=== PATIENT | female | born 1985 | race Caucasian/White ===

== ENCOUNTER 2019-10-20 07:02 | Emergency (ER) | payer OTHER, SELFPAY ==
[2019-10-20 07:06] VITALS: BP 148/102; PULSE 115; RESP 20; TEMP 36.8; O2SAT 100; BMI 23.3
--- NOTE | 2019-10-20 07:17 | W.ED.EYEPROB ---
HPI - Eye Problem General: Chief complaint: Eye Problems Stated complaint: left eye pain, patient states left eye irritation after removal of contact last night. Patient states it feels like there is something in her eye. Patient appears well. Patient has some redness to the low left eyelid. No obvious deformities noted. Patient appears in moderate pain. Time Seen by Provider: 10/20/19 07:16 Source: patient Mode of arrival: ambulatory Limitations: no limitations Review of Systems General: Reports: 10 or more systems reviewed and unremarkable except in HPI and below Eyes: Reports: eye discomfort (left eye pain) PFSH ED PFSH: Statuses (acute, chronic, etc) shown below reflect problem list status as previously entered and may not be historically accurate Social History Smoking and tobacco status: never smoked Physical Exam Const: COMMON NORMALS: no apparent distress and oriented x3 GENERAL APPEARANCE: cooperative HENMT: COMMON NORMALS: normocephalic, external ears normal, EAC's normal, TM's normal bilaterally and external nose normal HEAD & SCALP: normal to inspection and normocephalic FACE & SINUS: normal facial exam NOSE: external nose normal GENERAL EAR: hearing grossly impaired EXTERNAL EAR: Yes external ears normal EXTERNAL AUDITORY CANAL: EAC's normal TYMPANIC MEMBRANE: TM's normal bilaterally MOUTH: oral and palatal mucosa normal THROAT: posterior oropharynx normal Eye: COMMON NORMALS: PERRL and EOMs intact bilaterally VISUAL ACUITY: No visual acuity left eye ALIGNMENT: Yes alignment normal EYELID: eyelid abnormal (redness left eye lid) CONJUNCTIVA: Yes conjunctiva abnormal positive left conjunctival injection CORNEA: Yes fluorescein used (large abrasion left medial eye) PUPIL: Yes PERRL EYE IMAGES: 1. abrasion Neck/C-Spine: COMMON NORMALS: full ROM and no lymphadenopathy Lymph: LYMPHATIC: no lymphedema noted Chest: COMMONS NORMALS: inspection of chest normal and palpation of chest normal Resp: COMMON NORMALS: normal respiratory effort and clear to auscultation bilaterally AUSCULTATION: clear to auscultation bilaterally Cardio: COMMON NORMALS: regular rate and regular rhythm RATE: regular rate RHYTHM: regular rhythm GI: COMMON NORMALS: normal to inspection, nondistended, normoactive bowel sounds and non-tender : COMMON NORMALS: Yes no CVA tenderness BLADDER/KIDNEY EXAM: Yes no CVA tenderness Back/Pelvis: COMMON NORMALS: no CVA tenderness and thoracic and lumbar spine normal to inspection Extremity: COMMON NORMALS: normal to inspection GENERAL: No edema Neuro: COMMON NORMALS: oriented x3, moves all extremities and no focal motor deficits Psych: COMMON NORMALS: mental status grossly normal and cooperative Skin: COMMON NORMALS: no rashes or lesions noted GENERAL SKIN EXAM: no rashes or lesions noted Course Vital Signs: Vital signs: Vital Signs Temperature 98.3 F 10/20/19 07:06 Pulse Rate 115 H 10/20/19 07:06 Respiratory Rate 20 H 10/20/19 07:06 Blood Pressure 148/102 10/20/19 07:06 Pulse Oximetry 100 10/20/19 07:06 MDM - Eye Problem MDM Narrative: Medical decision making narrative: 32-year-old female comes in today for complaints of left eye irritation. Patient reports irritation after removal of contact last night. Patient had persistent discomfort since last night. Exam notes pupils equal reactive, no foreign body noted, under fluorescein stain note a abrasion to the medial left eye. Differential diagnosis includes contact related abrasion, conjunctivitis, foreign body. Reviewed exam with patient recommended treatment with prednisolone eyedrops and moxifloxacin. Patient reports understanding. Recommend referral to eye caregiver assisted living for monitoring and repeat examination. Patient reports understanding of care plan and need for follow-up. Discharge Plan Discharge Clinical Impression: Corneal abrasion Qualifiers: Encounter type: initial encounter Laterality: left Qualified Code(s): S05.02XA - Injury of conjunctiva and corneal abrasion without foreign body, left eye, initial encounter Condition: Stable Prescriptions: New moxifloxacin 0.5 % drops 1 drop ophthalmic (eye) TID 7 Days Qty: 3 RF: 0 ketorolac 0.5 % drops 1 drop ophthalmic (eye) Q6H PRN (Reason: Eye Irritation) 3 Days Qty: 5 RF: 0 prednisolone acetate 1 % drops,suspension 1 drop ophthalmic (eye) Q8H Qty: 5 RF: 0 Discharge Orders: Discharge Order (Routine); Ordered 10/20/19 Ordered By: Andrea Randall Referrals: Polo Nagy, ART PSYCHOTHERAPIST OR THERAPIST-C [Primary Care Provider] - Discharge Diet: Usual diet Discharge Activity: Resume usual activity Activity Restrictions/Additional Instructions: Avoid rubbing eyes Medications as directed Follow-up with eye caregiver assisted living today or at soonest availability Use eye drops as recommended Return to ER as needed Coding Level of Care Code ED Electronic Die Maker for Chg Fwd Exam Problem Focused
[2019-10-20 08:13] VITALS: BP 132/88; PULSE 67; RESP 15; O2SAT 97
== END 2019-10-20 08:14 | disposition home or self-care (01) ==
PROVIDERS: Emergency Provider Nurse Practitioner Family; Family Provider Nurse Practitioner; PCP Nurse Practitioner
DX: S05.02XA Injury of conjunctiva and corneal abrasion without foreign body, left eye, initial encounter (principal); X58.XXXA Exposure to other specified factors, initial encounter
CPT/HCPCS: 99281

== ENCOUNTER 2019-11-18 08:33 | Outpatient (CLI) | payer OTHER, SELFPAY ==
--- NOTE | 2019-11-18 08:45 | MR_ITS ---
WS: [id number] MRI LUMBAR SPINE NONCONTRAST HISTORY: Fracture/ disc displacement COMPARISON: 10/10/2019 TECHNIQUE: Sagittal and axial multisequence imaging is submitted. T12: Mild anterior compression deformity. Mixed increased and decreased signal intensity along the martinez perior endplate without retropulsion. No marrow edema into the posterior elements. No contact on the cord. Mild straightening of the normal lumbar lordosis. No lumbar spine fracture. Benign hemangioma in L3. Mild disc desiccation at L4-5. Conus terminates normally at L1-2 disc level. L1-L2: Normal. L2-L3: Normal. L3-L4: Mild facet and ligamentum flavum hypertrophy with no stenosis. L4-L5: Broad-based shallow central disc protrusion with annular fissure. Broad-based protrusion is ab utting the L5 nerve roots bilaterally, greatest on the RIGHT. Significant compression of the RIGHT L5 nerve root. Small amount of fluid in the facet joints. Mild central stenosis. L5-S1: Mild annular disc bulging without stenosis. Small amount of fluid in the facet joints. Paravertebral soft tissues are negative. MR/MR lumbar spine wo con* [id number] IMPRESSION: 1. Mild, subacute, approximately 10% compression fracture of T12 is stable. 2. Broad-based disc protrusion at L4-5 with encroachment upon the nerve roots, RIGHT greater than LEFT. Significant RIGHT L5 nerve root encroachment. 3. Mild central stenosis at L4-5.
== END 2019-11-18 08:34 | disposition home or self-care (01) ==
LOC: RADSHAW 08:38
PROVIDERS: Family Provider Nurse Practitioner; PCP Nurse Practitioner; Visit Provider Licensed Practical Nurse
DX: S22.080A Wedge compression fracture of T11-T12 vertebra, initial encounter for closed fracture (principal); X58.XXXA Exposure to other specified factors, initial encounter; M51.26 Other intervertebral disc displacement, lumbar region; M48.061 Spinal stenosis, lumbar region without neurogenic claudication
CPT/HCPCS: 72148

== ENCOUNTER → 2019-12-27 09:52 | Outpatient (BNVA) | payer OTHER, SELFPAY | PROVIDERS: Family Provider Nurse Practitioner; PCP Nurse Practitioner; Referring Provider Licensed Practical Nurse; Visit Provider Anesthesiology Pain Medicine | DX: M47.816 Spondylosis without myelopathy or radiculopathy, lumbar region (principal); M54.16 Radiculopathy, lumbar region; M51.26 Other intervertebral disc displacement, lumbar region; S22.080A Wedge compression fracture of T11-T12 vertebra, initial encounter for closed fracture; X58.XXXA Exposure to other specified factors, initial encounter; Z79.891 Long term (current) use of opiate analgesic | CPT/HCPCS: 99204 ==

== ENCOUNTER → 2020-03-13 08:51 | Outpatient (BNVA) | payer OTHER, SELFPAY | PROVIDERS: Family Provider Nurse Practitioner; PCP Nurse Practitioner; Visit Provider Anesthesiology Pain Medicine | DX: M47.816 Spondylosis without myelopathy or radiculopathy, lumbar region (principal); M51.26 Other intervertebral disc displacement, lumbar region; M54.16 Radiculopathy, lumbar region; M54.9 Dorsalgia, unspecified; S22.080A Wedge compression fracture of T11-T12 vertebra, initial encounter for closed fracture; X58.XXXA Exposure to other specified factors, initial encounter; Z79.891 Long term (current) use of opiate analgesic | CPT/HCPCS: 99213 ==

== ENCOUNTER 2020-04-11 08:25 | Outpatient (CLI) | payer OTHER, SELFPAY ==
--- NOTE | 2020-04-11 08:30 | CT_ITS ---
WS: [id number] CT LUMBAR SPINE, noncontrast. HISTORY: lumbar pain TECHNIQUE: Contiguous 2.5 mm axial imaging are performed. Sagittal and coronal reformats are submitte d and reviewed. All CT scans at [facility] use at least one of these dose optimization te chniques: automated exposure control; mA and/or kV adjustment per patient size (includes targeted exa ms where dose is matched to clinical indication); or iterative reconstruction. IV contrast: None DLP: 2749.15 mGycm COMPARISON: 10/10/2019 Mild straightening of the normal lumbar lordosis. No lumbar spine fracture. Very mild anterior wedgin g of T11 and L1. No acute fractures were identified on a prior MRI. Mild anterior wedging of T12. Hea ling subacute fracture that was previously described. No progression of the fracture. L1-2: Normal. L2-3: Normal. L3-4: Normal. L4-5: Mild disc bulging with a RIGHT paracentral disc protrusion, similar to the prior study with no progression. Mild effacement of the ventral thecal sac. Mild encroachment upon the RIGHT L5 nerve izzy t. L5-S1: Mild broad based disc bulging. No stenosis. There is air tracking through the soft tissues at the L4-5 level. There is also air in the subarachno id space of uncertain etiology. Epidural and joint injections were recently performed. CT/CT lumbar spine wo con* [id number] IMPRESSION: 1. Stable 10% T12 compression fracture. 2. No additional fractures. There is very slight anterior wedging of T11 and L 1 which were not acute on a prior MRI from 11/18/2019. 3. Broad-based disc protrusion at L4-5 resulting in mild central stenosis and encroachment upon the L5 nerve roots. Greatest on the RIGHT. Similar to the genoveva or MRI of 11/18/2019. 4. Epidural air and soft tissue air at the L4-5 level from recent epidural and facet injections.
== END 2020-04-11 08:26 | disposition home or self-care (01) ==
LOC: RADWPI 08:30
PROVIDERS: Family Provider Nurse Practitioner; PCP Nurse Practitioner; Visit Provider Specialist
DX: S22.080A Wedge compression fracture of T11-T12 vertebra, initial encounter for closed fracture (principal); X58.XXXA Exposure to other specified factors, initial encounter; M51.26 Other intervertebral disc displacement, lumbar region; M48.061 Spinal stenosis, lumbar region without neurogenic claudication
CPT/HCPCS: 72131

== ENCOUNTER 2020-04-29 11:30 | Emergency (ER) | payer OTHER, SELFPAY ==
[2020-04-29 11:39] VITALS: BMI 23.1
[2020-04-29 11:43] VITALS: BP 149/92; PULSE 88; RESP 16; TEMP 36.8; O2SAT 98
--- NOTE | 2020-04-29 12:01 | W.ED.GENADLT ---
HPI - General Adult General: Chief complaint: General Medical Stated complaint: HIGH BP Time Seen by Provider: 04/29/20 11:43 History of Present Illness: HPI narrative: Patient states that she has not felt well for approximately 1 month and has felt that it was her blood pressure being high. Patient states that she can tell when her blood pressure is high and what will make it go up. Patient is not on any antihypertensives. Onset (ago): month(s) (1) Location: head Radiation: non-radiation Relieving factors: none Exacerbating factors: none Review of Systems General: Reports: 10 or more systems reviewed and unremarkable except in HPI and below PFSH ED PFSH: Medical History Chronic left lumbar radiculopathy T12: Mild anterior compression deformity. Mixed increased and decreased signal intensity along the superior endplate without retropulsion. No marrow edema into the posterior elements. No contact on the cord. Mild straightening of the normal lumbar lordosis. No lumbar spine fracture. Benign hemangioma in L3. Mild disc desiccation at L4-5. Conus terminates normally at L1-2 disc level. L1-L2: Normal. L2-L3: Normal. L3-L4: Mild facet and ligamentum flavum hypertrophy with no stenosis. L4-L5: Broad-based shallow central disc protrusion with annular fissure. Broad-based protrusion is abutting the L5 nerve roots bilaterally, greatest on the RIGHT. Significant compression of the RIGHT L5 nerve root. Small amount of fluid in the facet joints. Mild central stenosis. L5-S1: Mild annular disc bulging without stenosis. Small amount of fluid in the facet joints. Paravertebral soft tissues are negative. Disc displacement, lumbar Displacement of lumbar disc with radiculopathy T12 compression fracture injury 09/04/2019 Surgical History History of appendectomy (~05/1998) History of laparoscopy (~02/19/06) and 07/05/2015 History of orthopedic surgery (~2002) Family History Mother Hypertension Thyroid disease Breast cancer Bleeding disorder Father Hypertension Diabetes Sister Hypertension Grandmother Diabetes Bleeding disorder Grandfather Diabetes Kidney disease Social History Smoking and tobacco status: never smoked Alcohol intake: never Lives independently: Yes Household members: spouse and children Marital status: Number of children: 4 Current occupational status: employed 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 [employer] History of recent travel: No Female Reproductive History: Date of last menstrual period: 04/15/20 Physical Exam Const: COMMON NORMALS: no acute distress, patient oriented x3, no limitations and alert HENMT: COMMON NORMALS: normocephalic, atraumatic, external ears normal and Normal external nose present HEAD & SCALP: normocephalic and atraumatic FACE & SINUS: normal facial exam NOSE: Normal external nose present EXTERNAL EAR: Yes external ears normal MOUTH: Normal oral and palatal mucosa present Neck/C-Spine: COMMON NORMALS: full ROM, no lymphadenopathy, supple, no meningeal signs and no JVD GENERAL: Yes normal visual inspection Resp: COMMON NORMALS: normal respiratory effort, No retractions, No use of accessory muscles and clear to auscultation bilaterally AUSCULTATION: clear to auscultation bilaterally Cardio: COMMON NORMALS: no JVD, regular rate and regular rhythm RATE: regular rate RHYTHM: regular rhythm GI: COMMON NORMALS: Normal to inspection, nondistended, normoactive bowel sounds present, Soft to palpation, non-tender, No hepatosplenomegaly present and no masses INSPECTION: Yes normal to inspection AUSCULTATION: Yes normoactive bowel sounds PALPATION: Yes Soft to palpation and Yes No hepatosplenomegaly present PERCUSSION: normal to percussion : COMMON NORMALS: Yes no CVA tenderness and Yes normal external appearance BLADDER/KIDNEY EXAM: Yes no CVA tenderness Back/Pelvis: COMMON NORMALS: no CVA tenderness, thoracic and lumbar spine normal to inspection, no thoracic nor lumbar tenderness, thoraco-lumbar ROM normal and straight leg raise negative bilaterally Extremity: COMMON NORMALS: normal to inspection, full ROM, capillary refill normal, no joint enlargement, no clubbing, cyanosis or edema, no calf tenderness and no pedal edema Neuro: COMMON NORMALS: patient oriented x3, moves all extremities, no focal motor deficits and no sensory deficits noted SENSORIUM/ORIENTATION: Yes alert MENINGEAL SIGNS: Yes no meningeal signs Psych: COMMON NORMALS: mental status grossly normal, Normal thought process present, cooperative, normal affect and speech normal SPEECH: Yes normal speech THOUGHT PROCESS: Normal thought process present Skin: COMMON NORMALS: no rashes or lesions noted, no wounds, turgor normal, no jaundice, no petechiae and no mottling GENERAL SKIN EXAM: no rashes or lesions noted and turgor normal Course Vital Signs: Vital signs: Vital Signs Temperature 98.2 F 04/29/20 11:43 Pulse Rate 88 04/29/20 11:43 Respiratory Rate 16 04/29/20 11:43 Blood Pressure 149/92 04/29/20 11:43 Pulse Oximetry 98 04/29/20 11:43 [facility] - General Adult Lab Data: Labs: Lab Results 04/29/20 04/29/20 04/29/20 Range/Units 12:08 12:08 12:15 WBC 7.2 (4.0-10.0) 10^3/ uL RBC 5.19 (4.1-5.3) 10^6/u L Hgb 15.3 (11.5-15.3) g/dL Hct 47.7 H (37.0-47.0) % MCV 91.9 (81-99) fL MCH 29.5 (28.0-34.0) pg MCHC 32.1 (30.0-36.0) g/dL RDW 13.2 (12.1-15.1) % Plt Count 226 (130-400) 10^3/c mm MPV 11.5 H (7.4-10.4) fL Neut % (Auto) 65.5 % Lymph % (Auto) 21.1 % [place] % (Auto) 9.9 % Eos % (Auto) 2.4 % Baso % (Auto) 1.0 % Neut # (Auto) 4.68 (1.8-7.7) 10^3/u L Lymph # (Auto) 1.5 (0.8-4.8) 10^3/u L [place] # (Auto) 0.7 (0.2-0.9) 10^3/u L Eos # (Auto) 0.2 (0.0-0.8) 10^3/u L Baso # (Auto) 0.1 (0.0-0.1) 10^3/u L Nucleated RBC % (a uto) 0 % Nucleated RBCs # 0.0 /100WBC Sodium (136-145) mmol/L Potassium (3.5-5.1) mmol/L Chloride (98-107) mmol/L Carbon Dioxide (22-29) mmol/L Anion Gap (5-19) BUN (6-20) mg/dL Creatinine (0.5-0.9) mg/dL GFR Calculation (90-130) mL/min Glucose (65-115) mg/dL Calculated Osmolal ity (285-295) mOsm/k g Lactate (0.5-2.2) mmol/L Calcium (8.5-10.5) mg/dL Phosphorus (2.5-4.5) mg/dL Magnesium (1.7-2.3) mg/dL Total Bilirubin (0.15-1.2) mg/dL AST (0-32) U/L ALT (0-33) U/L Alkaline Phosphata se (35-105) IU/L Total Protein (6.6-8.7) g/dL Albumin (3.5-5.2) g/dL Globulin (1.3-4.6) g/dL TSH (0.27-4.20) uIU/ mL HCG, Qual (Negative) Urine Color Yellow (Yellow) Urine Appearance Sl hazy (CLEAR) Urine pH 6.5 (5-7) Ur Specific Gravit y 1.015 (1.005-1.030) Urine Protein Neg (Negative) Urine Glucose (UA) Norm (Normal) Urine Ketones Negative (Negative) Urine Blood Neg (Negative) Urine Nitrate Negative (Negative) Urine Bilirubin Neg (NEGATIVE) Urine Urobilinogen Norm (Negative) mg/dL Ur Leukocyte Fabiola ase Negative (Negative) Urine RBC None (0-2) /hpf Urine WBC 0-4 H (0-5) /hpf Ur Squamous Epith Cells 10-15 H (0-5) Amorphous Sediment Not Reportable Urine Bacteria 2+ H (NONE) Urine Mucus 2+ Urine Opiates Scre en Negative (Negative) ng/mL Ur Barbiturates Sc reen Negative (Negative) ng/mL Ur Phencyclidine S crn Negative (Negative) ng/mL Ur Amphetamines Sc reen Negative (Negative) ng/mL U Benzodiazepines Scrn Positive H (Negative) ng/mL Urine Cocaine Scre en Negative (Negative) ng/mL U Marijuana (THC) Screen Negative (Negative) ng/mL 04/29/20 04/29/20 04/29/20 Range/Units 12:15 12:15 12:15 WBC (4.0-10.0) 10^3/ uL RBC (4.1-5.3) 10^6/u L Hgb (11.5-15.3) g/dL Hct (37.0-47.0) % MCV (81-99) fL MCH (28.0-34.0) pg MCHC (30.0-36.0) g/dL RDW (12.1-15.1) % Plt Count (130-400) 10^3/c mm MPV (7.4-10.4) fL Neut % (Auto) % Lymph % (Auto) % [place] % (Auto) % Eos % (Auto) % Baso % (Auto) % Neut # (Auto) (1.8-7.7) 10^3/u L Lymph # (Auto) (0.8-4.8) 10^3/u L [place] # (Auto) (0.2-0.9) 10^3/u L Eos # (Auto) (0.0-0.8) 10^3/u L Baso # (Auto) (0.0-0.1) 10^3/u L Nucleated RBC % (a uto) % Nucleated RBCs # /100WBC Sodium 141 (136-145) mmol/L Potassium 4.1 (3.5-5.1) mmol/L Chloride 104 (98-107) mmol/L Carbon Dioxide 27 (22-29) mmol/L Anion Gap 14.1 (5-19) BUN 10 (6-20) mg/dL Creatinine 0.7 (0.5-0.9) mg/dL GFR Calculation 97.0 (90-130) mL/min Glucose 91 (65-115) mg/dL Calculated Osmolal ity 288 (285-295) mOsm/k g Lactate 1.9 (0.5-2.2) mmol/L Calcium 9.6 (8.5-10.5) mg/dL Phosphorus 3.1 (2.5-4.5) mg/dL Magnesium 2.2 (1.7-2.3) mg/dL Total Bilirubin 0.6 (0.15-1.2) mg/dL AST 25 (0-32) U/L ALT 44 H (0-33) U/L Alkaline Phosphata se 59 (35-105) IU/L Total Protein 7.3 (6.6-8.7) g/dL Albumin 4.9 (3.5-5.2) g/dL Globulin 2.4 (1.3-4.6) g/dL TSH 1.24 (0.27-4.20) uIU/ mL HCG, Qual Negative (Negative) Urine Color (Yellow) Urine Appearance (CLEAR) Urine pH (5-7) Ur Specific Gravit y (1.005-1.030) Urine Protein (Negative) Urine Glucose (UA) (Normal) Urine Ketones (Negative) Urine Blood (Negative) Urine Nitrate (Negative) Urine Bilirubin (NEGATIVE) Urine Urobilinogen (Negative) mg/dL Ur Leukocyte Fabiola ase (Negative) Urine RBC (0-2) /hpf Urine WBC (0-5) /hpf Ur Squamous Epith Cells (0-5) Amorphous Sediment Urine Bacteria (NONE) Urine Mucus Urine Opiates Scre en (Negative) ng/mL Ur Barbiturates Sc reen (Negative) ng/mL Ur Phencyclidine S crn (Negative) ng/mL Ur Amphetamines Sc reen (Negative) ng/mL U Benzodiazepines Scrn (Negative) ng/mL Urine Cocaine Scre en (Negative) ng/mL U Marijuana (THC) Screen (Negative) ng/mL Discharge Plan Discharge Patient Disposition: Home, Self-Care Clinical Impression: Hypertension Qualifiers: Hypertension type: essential hypertension Qualified Code(s): I10 - Essential (primary) hypertension Condition: Stable Prescriptions: New lisinopril 2.5 mg tablet 2.5 mg PO DAILY Qty: 10 RF: 0 No Action hydrocodone-acetaminophen [Altair] 5-325 mg tablet 1 tab PO PRN RF: 0 promethazine 25 mg tablet 12.5 - 25 mg PO PRN RF: 0 tizanidine 2 mg tablet 2 mg PO BID MDD 2 PRN (Reason: muscle spasticity) Qty: 60 RF: 0 Flintstones Multivitamin Tablet,Chewable 2 tab PO DAILY PRN (Reason: unknown) RF: 0 ibuprofen 200 mg Tablet 800 mg PO PRN RF: 0 Tums See Rx Instructions .ROUTE .COMPLEX RF: 0 Discharge Orders: Discharge Order (Routine); Ordered 04/29/20 Ordered By: Delgado Sales Referrals: Polo Nagy, ELECTRONIC WARFARE OFFICER-C [Primary Care Provider] - Coding Level of Care Code ED Manager Adult for Chg Fwd Exam Comprehensive
[2020-04-29 12:22] LABS: Basophils # 0.1 10^3/uL (0.0-0.1); Eosinophils # 0.2 10^3/uL (0.0-0.8); Eosinophils % 2.4 %; Hematocrit 47.7 % (37.0-47.0); Hemoglobin 15.3 g/dL (11.5-15.3); Lymphocytes # 1.5 10^3/uL (0.8-4.8); Lymphocytes % 21.1 %; Mean Corpuscular HGB Conc 32.1 g/dL (30.0-36.0); Mean Corpuscular Hemoglobin 29.5 pg (28.0-34.0); Mean Corpuscular Volume 91.9 fL (81-99); Mean Platelet Volume 11.5 fL (7.4-10.4); Monocytes # 0.7 10^3/uL (0.2-0.9); Monocytes % 9.9 %; Neutrophils # 4.68 10^3/uL (1.8-7.7); Neutrophils % 65.5 %; Nucleated Red Blood Cells % 0 %; Platelet Count 226 10^3/cmm (130-400); Red Blood Count 5.19 10^6/uL (4.1-5.3); Red Cell Distribution Width 13.2 % (12.1-15.1); White Blood Count 7.2 10^3/uL (4.0-10.0)
[2020-04-29 12:35] LABS: HCG, Serum Qual Negative (Negative); Lactate (Lactic Acid level) 1.9 mmol/L (0.5-2.2)
[2020-04-29 12:46] LABS: Alanine Aminotransferase 44 U/L (0-33); Albumin Level 4.9 g/dL (3.5-5.2); Alkaline Phosphatase 59 IU/L (35-105); Anion Gap 14.1 (5-19); Aspartate Amino Transferase 25 U/L (0-32); Blood Urea Nitrogen 10 mg/dL (6-20); Calcium 9.6 mg/dL (8.5-10.5); Carbon Dioxide 27 mmol/L (22-29); Chloride 104 mmol/L (98-107); Globulin 2.4 g/dL (1.3-4.6); Glucose 91 mg/dL (65-115); Magnesium 2.2 mg/dL (1.7-2.3); Osmolality Calculated 288 mOsm/kg (285-295); Phosphorus 3.1 mg/dL (2.5-4.5); Potassium 4.1 mmol/L (3.5-5.1); Sodium 141 mmol/L (136-145); Thyroid Stimulating Hormone 1.24 uIU/mL (0.27-4.20); Total Bilirubin 0.6 mg/dL (0.15-1.2); Total Protein 7.3 g/dL (6.6-8.7)
[2020-04-29 12:53] LABS: Add Urine Microscopic? YES; Bilirubin Urine Neg (NEGATIVE); Blood Urine Neg (Negative); Glucose Urine UA Norm (Normal); Ketones Urine Negative (Negative); Leukocyte Esterase Urine Negative (Negative); Nitrate Urine Negative (Negative); Protein Urine Neg (Negative); Specific Gravity, Urine 1.015 (1.005-1.030); Urine Appearance SL Hazy (CLEAR); Urine Color Yellow (Yellow); Urobilinogen Urine Norm (Negative); pH Urine 6.5 (5-7)
[2020-04-29 12:55] LABS: WBC Urine 0-4 /hpf (0-5)
[2020-04-29 12:56] LABS: Add Urine Culture? No; Bacteria Urine 2+; Mucus Urine 2+
[2020-04-29 12:59] LABS: Amphetamines Screen Urine Negative (Negative); Barbiturates Screen Urine Negative (Negative); Benzodiazepines Screen Urine Positive (Negative); Cocaine Screen Urine Negative (Negative); Opiate Screen Urine Negative (Negative); PCP Screen Urine Negative (Negative); THC Screen Urine Negative (Negative)
[2020-04-29 13:19] VITALS: BP 128/96; PULSE 86; RESP 16; O2SAT 96
== END 2020-04-29 13:19 | disposition home or self-care (01) ==
PROVIDERS: Emergency Provider Family Medicine; PCP Nurse Practitioner
DX: I10 Essential (primary) hypertension (principal)
CPT/HCPCS: 12345; 80053; 80306; 81001; 81003; 83605; 83735; 84100; 84443; 84703; 85025; 99283

== ENCOUNTER 2022-06-06 13:10 | Emergency (ER) | payer MEDICAID, SELFPAY ==
[2022-06-06 13:12] VITALS: BP 132/81; PULSE 77; RESP 14; TEMP 36.8; O2SAT 97; BMI 26.3
[2022-06-06 13:45] LABS: Basophils # 0.1 10^3/uL (0.0-0.1); Basophils % 0.7 %; Eosinophils # 0.2 10^3/uL (0.0-0.8); Eosinophils % 1.9 %; Hematocrit 47.2 % (37.0-47.0); Hemoglobin 14.9 g/dL (11.5-15.3); Lymphocytes # 2.1 10^3/uL (0.8-4.8); Lymphocytes % 17.4 %; Mean Corpuscular HGB Conc 31.6 g/dL (30.0-36.0); Mean Corpuscular Hemoglobin 30.3 pg (28.0-34.0); Mean Corpuscular Volume 95.9 fl (81-99); Monocytes # 1.4 10^3/uL (0.2-0.9); Monocytes % 11.8 %; Neutrophils # 7.99 10^3/uL (1.8-7.7); Neutrophils % 67.3 %; Nucleated Red Blood Cells % 0 %; Platelet Count 262 10^3/cmm (130-400); Red Blood Count 4.92 10^6/uL (4.1-5.3); Red Cell Distribution Width 13.1 % (12.1-15.1); White Blood Count 11.9 10^3/uL (4.0-10.0)
--- NOTE | 2022-06-06 13:54 | CT_ITS ---
WS: [id number] CT ABDOMEN PELVIS TECHNIQUE: Contrast-enhanced CT of the abdomen and pelvis with coronal and sagittal reformatted image s. CLINICAL INFORMATION: llq pain and bloody stool COMPARISON: None. DLP: 521.[address] scans at [facility] use at least one of these dose optimization techniques: automated e xposure control; mA and/or kV adjustment per patient size (includes targeted exams where dose is matc hed to clinical indication); or iterative reconstruction. FINDINGS: Small amount of free fluid in the pelvis. Inflammatory stranding and edema involving the sigmoid colo n LEFT lower quadrant consistent with acute diverticulitis. No drainable abscess or fluid collection. Diffuse fatty infiltration liver. Normal portal vein and splenic vein. Normal gallbladder. Normal spl een. Normal GE junction. Adrenal glands are normal. Normal renal parenchymal enhancement. No hydronep hrosis in either kidney. Normal portal vein and splenic vein. Normal caliber abdominal aorta. Lung bases are well aerated. Tiny incidental fat-containing umbilical hernia. Small central protrusio n L4-L5 with a small central protrusion and narrowing of the RIGHT subarticular recess. Minimal chron ic anterior wedging at T12 with endplate Schmorl's node. CT/CT abdomen pelvis w con* [id number] IMPRESSION: 1. Inflammatory stranding and edema in the LEFT lower quadrant about the sigmo id colon consistent with acute diverticulitis. No drainable abscess or fluid co llection. 2. Small amount of free fluid in the pelvis. 3. Diffuse fatty infiltration of the liver. 4. Fat-containing umbilical hernia. 5. Small central protrusion L4-L5 with narrowing of the RIGHT subarticular rec ess. This can be followed up with lumbar spine MRI on an elective basis if symp tomatic. Notified Kiet Hagan DO at 06/06/2022 2:45 PM.
--- NOTE | 2022-06-06 13:54 | W.ED.ABDPA2 ---
HPI - Abdominal Pain General: Chief Complaint: Abdominal Pain Stated Complaint: Abd pain Time Seen by Provider: 06/06/22 13:27 Source: patient Mode of arrival: ambulatory Limitations: no limitations History of Present Illness: This patient makes her way to the emergency department by private vehicle because of increasing abdominal pain. Her current illness began approximately 12 or so days ago when she started developing cramping with blood mixed with stool. He states that bowel movements themselves were not hard and not painful. She states that that has continued for the last 12 days intermittently with cramping followed by same character of stools. She states she has been awakened at night for the urge to defecate. She states she is had progressive abdominal pain which is developed over the past 24 hours predominantly in the left lower abdomen. She states it has not moved and has not radiated. She states states it is quite uncomfortable and she is never experienced this previously. She states it feels like menstrual cramps its constant painful colicky cramping and then eases off for a bit and then returns. She states curling up makes her more comfortable. She denies any fevers or chills. She states she has been eating and drinking relatively normal. She has no history of inflammatory or irritable bowel conditions. She states that she has 5 children at home who are all well without any symptoms. She has had no recent travel. She does not drink alcohol or use tobacco. She states that denies any recent travel. She states that she does not have any bleeding independent of stools. She has no vaginal bleeding. She has no blood in her urine. She states when she urinates today it causes her to have more discomfort in her left lower quadrant. No history of kidney stones or urinary tract infections. Set her appendix removed but otherwise no significant abdominal surgeries. She is normally in good health. Pain Consistency: intermittent and colicky Quality: cramping Associated Symptoms: Reports hematochezia; Denies chills, dysuria, fever(s) and vomiting Review of Systems Const: Denies: fever(s) or chills Eyes: Denies: change in vision ENMT: Denies: odynophagia, mouth pain, nasal discharge or nasal congestion Card: Denies: chest pain, palpitations, irregular heart rhythm or edema Resp: Denies: dyspnea, productive cough or non-productive cough GI: Reports: hematochezia; Denies: vomiting : Denies: flank pain, difficulty voiding, dysuria or urinary frequency Musc: Denies: neck pain, back pain or extremity pain Skin/Breast: Denies: rash Neuro: Denies: headache(s), numbness in extremities or weakness in extremities Psych: Denies: anxiety or depression Endo: Denies: polyuria or polydipsia PFSH ED PFSH: Medical History Anxiety Longstanding history of anxiety since at least her early 20s and has been on and off medication in the past. Has tried therapy in the past. Currently not on any medication or therapy Chronic left lumbar radiculopathy T12: Mild anterior compression deformity. Mixed increased and decreased signal intensity along the superior endplate without retropulsion. No marrow edema into the posterior elements. No contact on the cord. Mild straightening of the normal lumbar lordosis. No lumbar spine fracture. Benign hemangioma in L3. Mild disc desiccation at L4-5. Conus terminates normally at L1-2 disc level. L1-L2: Normal. L2-L3: Normal. L3-L4: Mild facet and ligamentum flavum hypertrophy with no stenosis. L4-L5: Broad-based shallow central disc protrusion with annular fissure. Broad-based protrusion is abutting the L5 nerve roots bilaterally, greatest on the RIGHT. Significant compression of the RIGHT L5 nerve root. Small amount of fluid in the facet joints. Mild central stenosis. L5-S1: Mild annular disc bulging without stenosis. Small amount of fluid in the facet joints. Paravertebral soft tissues are negative. Essential (primary) hypertension No pertinent past medical history Denies diabetes, asthma, hypertension, seizures, DVT/PE PCP: LYNDA Gatica Surgical History History of appendectomy 05/1998--open appendectomy at the age of 12 History of laparoscopy 07/05/2015---Diagnostic laparoscopy, hysteroscopy and D&C done for chronic pelvic pain/d[place]un[place]. [place] [facility] [place] Hysteroscopy showed no abnormalities of the endometrium and bilateral ostia noted. Pathology of the D&C showed disordered proliferation with stromal collapse. Diagnostic laparoscopy showed minimal filmy adhesions in the right middle quadrant of the bowel to the sidewall. No other dictations were noted in the pelvis, no signs of endometriosis, normal tubes and ovaries bilaterally, normal uterus, dilated uterine vessels. History of orthopedic surgery (~2002) Left shoulder surgery S/P dilation and curettage 05/14/2012--incomplete with hemorrhage. Performed by Dr. Goldstein at [facility] in [place], [place] S/P LEEP 12/2007---LEEP done for cervical abnormality in [facility]. These records were requested and reviewed. 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 She denied underwent a cone biopsy. Pathology was not obtained.(scanned) Status post laparoscopy 02/19/2006---Diagnostic laparoscopy, hysteroscopy done for chronic pelvic pain and severe dysmenorrhea by Dr. Green at [facility]. --Operative reports have been received and reviewed and a hysteroscopy, diagnostic laparoscopy was performed. At time of laparoscopy there were filmy adhesions in the right paracolic gutter however no pelvic adhesions, endometriosis or gross abnormalities were noted, hysteroscopy done showed no intracavitary abnormalities either.(Operative report has been scanned-all scripts.) Family History Mother Hypertension Thyroid disease Breast cancer diagnosed in her late 40s Diabetes Father Hypertension Diabetes Sister Hypertension Heart disease Grandmother Diabetes paternal Grandfather Diabetes maternal Denies family history of Colon cancer Ovarian cancer Hyperlipidemia Uterine cancer Stroke Social History Smoking and tobacco status: never smoked Second hand smoke exposure: No Smoking risk assessment/counseling performed?: No Alcohol intake: never Desire information about alcohol rehabilitation?: No Counseling given: No Desire information about substance/drug rehabilitation?: No Counseling given: No Adopted: No Caregiver/support person: No Lives independently: Yes Household members: spouse Housing: House Marital status: Number of children: 5 service: No Current occupational status: employed 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 She is in a position of comfort. Const: COMMON NORMALS: average body habitus, patient oriented x3 and healthy appearing GENERAL APPEARANCE: cooperative HENMT: COMMON NORMALS: normocephalic, moist oral mucous membranes and oropharynx normal HEAD & SCALP: normocephalic FACE & SINUS: normal facial exam Eye: COMMON NORMALS: Equal, round and reactive pupils present, EOMs intact bilaterally and conjunctivae normal CONJUNCTIVA: Yes conjunctivae normal PUPIL: Yes Equal, round and reactive pupils present Neck/C-Spine: COMMON NORMALS: full ROM, no lymphadenopathy, supple, no meningeal signs, no JVD and Thyroid normal THYROID: Thyroid normal Chest: COMMONS NORMALS: normal inspection of the chest Resp: COMMON NORMALS: normal respiratory effort, No use of accessory muscles and clear to auscultation bilaterally AUSCULTATION: clear to auscultation bilaterally Cardio: COMMON NORMALS: no JVD, regular rate, regular rhythm and No murmurs present (Cardio) RATE: regular rate RHYTHM: regular rhythm GI: OTHER: Abdominal examination is remarkable to be flat not protuberant. She has marked tenderness in her left lower quadrant with guarding. She also has tenderness with engagement of the psoas musculature on the left. Palpation of the remainder of the abdomen refers pain to the left lower quadrant. : COMMON NORMALS: Yes no CVA tenderness BLADDER/KIDNEY EXAM: Yes no CVA tenderness Back/Pelvis: COMMON NORMALS: no CVA tenderness, thoracic and lumbar spine normal to inspection, no thoracic nor lumbar tenderness and thoraco-lumbar ROM normal Extremity: COMMON NORMALS: normal to inspection, full ROM, no calf tenderness and no pedal edema Neuro: COMMON NORMALS: patient oriented x3, moves all extremities, no focal motor deficits and no sensory deficits noted MENINGEAL SIGNS: Yes no meningeal signs Psych: COMMON NORMALS: mental status grossly normal and cooperative Skin: COMMON NORMALS: no rashes or lesions noted, turgor normal and no jaundice GENERAL SKIN EXAM: no rashes or lesions noted and turgor normal Course Reevaluation(s): Reevaluation #1: Patient CT scan significant for diverticulitis with small moderate free fluid but no evidence of perforation, abscess etc. We will [place] initiate antibiotic coverage at this time. Will reevaluate and determine if she is comfortable and certainly clinically suitable at that time to be managed as an outpatient but given her current findings with 1 would think that would be likely. Time: 14:50 Reevaluation #2: Patient is doing well. She is improved with regard to her symptoms. We discussed current findings, treatment recommendations and expected course. No new or focal findings at this time. Time: 15:45 Vital Signs: Vital signs: Vital Signs Temperature 98.2 F 06/06/22 13:12 Pulse Rate 77 06/06/22 13:12 Respiratory Rate 18 06/06/22 14:09 Blood Pressure 132/81 06/06/22 13:12 Pulse Oximetry 97 06/06/22 14:09 Oxygen Delivery Me thod 06/06/22 13:12 MDM - Abdominal Pain Medical Decision Making Patient who presented to emergency department with several day history of hematochezia. Increasing pain over the last 24 hours. Work-up today reveals findings consistent with simple diverticulitis without perforation, abscess, or other concerning findings on imaging. She is tolerating fluids well afebrile no signs of peritonitis etc. and she has no significant comorbidities. She is suitable for and amenable to outpatient treatment. We also reviewed return precautions, lifestyle changes and follow-up. She voiced understanding of our discussion and is stable for discharge medical screening examination complete. Medical Records I reviewed the patient's medical records. Lab Data I reviewed the patient's lab results. : 06/06/22 13:33 06/06/22 13:33 Labs/Radiology: Radiology Impressions Abdomen/Pelvis CT 06/06/22 13:54 IMPRESSION: 1. Inflammatory stranding and edema in the LEFT lower quadrant about the sigmoid colon consistent with acute diverticulitis. No drainable abscess or fluid collection. 2. Small amount of free fluid in the pelvis. 3. Diffuse fatty infiltration of the liver. 4. Fat-containing umbilical hernia. 5. Small central protrusion L4-L5 with narrowing of the RIGHT subarticular recess. This can be followed up with lumbar spine MRI on an elective basis if symptomatic. Notified Kiet Hagan DO at 06/06/2022 2:45 PM. Laboratory Results WBC 11.9 10^3/uL (4.0-10.0) H 06/06/22 13:33 RBC 4.92 10^6/uL (4.1-5.3) 06/06/22 13:33 Hgb 14.9 g/dL (11.5-15.3) 06/06/22 13:33 Hct 47.2 % (37.0-47.0) H 06/06/22 13:33 MCV 95.9 fl (81-99) 06/06/22 13:33 MCH 30.3 pg (28.0-34.0) 06/06/22 13:33 MCHC 31.6 g/dL (30.0-36.0) 06/06/22 13:33 RDW 13.1 % (12.1-15.1) 06/06/22 13:33 Plt Count 262 10^3/cmm (130-400) 06/06/22 13:33 MPV 11.0 fL (7.4-10.4) H 06/06/22 13:33 Neut % (Auto) 67.3 % 06/06/22 13:33 Lymph % (Auto) 17.4 % 06/06/22 13:33 Griggs % (Auto) 11.8 % 06/06/22 13:33 Eos % (Auto) 1.9 % 06/06/22 13:33 Baso % (Auto) 0.7 % 06/06/22 13:33 Neut # (Auto) 7.99 10^3/uL (1.8-7.7) H 06/06/22 13:33 Lymph # (Auto) 2.1 10^3/uL (0.8-4.8) 06/06/22 13:33 Griggs # (Auto) 1.4 10^3/uL (0.2-0.9) H 06/06/22 13:33 Eos # (Auto) 0.2 10^3/uL (0.0-0.8) 06/06/22 13:33 Baso # (Auto) 0.1 10^3/uL (0.0-0.1) 06/06/22 13:33 Nucleated RBC % (auto) 0 % 06/06/22 13:33 Nucleated RBCs # 0.0 /100WBC 06/06/22 13:33 Sodium 143 mmol/L (136-145) 06/06/22 13:33 Potassium 4.2 mmol/L (3.5-5.1) 06/06/22 13:33 Chloride 101 mmol/L (98-107) 06/06/22 13:33 Carbon Dioxide 28 mmol/L (22-29) 06/06/22 13:33 Anion Gap 18.2 (5-19) 06/06/22 13:33 BUN 6 mg/dL (6-20) 06/06/22 13:33 Creatinine 0.6 mg/dL (0.5-0.9) 06/06/22 13:33 GFR Calculation 114.4 mL/min (90-130) 06/06/22 13:33 Glucose 99 mg/dL (65-115) 06/06/22 13:33 Calculated Osmolality 294 mOsm/kg (285-295) 06/06/22 13:33 Calcium 9.8 mg/dL (8.5-10.5) 06/06/22 13:33 Total Bilirubin 0.5 mg/dL (0.15-1.2) 06/06/22 13:33 AST 21 U/L (0-32) 06/06/22 13:33 ALT 32 U/L (0-33) 06/06/22 13:33 Alkaline Phosphatase 78 U/L (35-105) 06/06/22 13:33 Total Protein 7.4 g/dL (6.6-8.7) 06/06/22 13:33 Albumin 4.7 g/dL (3.5-5.2) 06/06/22 13:33 Globulin 2.7 g/dL (1.3-4.6) 06/06/22 13:33 Lipase 48 U/L (13-60) 06/06/22 13:33 HCG, Qual Negative (Negative) 06/06/22 13:30 Discharge Plan Discharge Patient Disposition: Home Clinical Impression: Diverticulitis Condition: Stable Prescriptions: New amoxicillin-pot clavulanate 875-125 mg tablet 1 tab PO BID Qty: 20 0RF hyoscyamine sulfate [Levsin/SL] 0.125 mg tablet, sublingual 0.125 mg PO QID PRN (Reason: spasms) Qty: 30 0RF hydrocodone-acetaminophen 7.5-325 mg tablet 1 tab PO Q8H PRN (Reason: pain) Qty: 14 0RF No Action promethazine 25 mg tablet 12.5 - 25 mg PO DAILY triamterene-hydrochlorothiazid 37.5-25 mg capsule 1 cap PO DAILY Nexplanon 68 mg implant 1 implant subdermal .every 3 years Qty: 1 0RF Flintstones Multivitamin Tablet,Chewable 2 tab PO DAILY PRN (Reason: unknown) cyclobenzaprine 10 mg tablet 10 mg PO BID PRN (Reason: Muscle Spasm) citalopram 40 mg tablet 40 mg PO BEDTIME metoprolol succinate 50 mg tablet extended release 24 hr 50 mg PO BEDTIME magnesium 200 mg Tablet 200 mg PO DAILY coQ10 (ubiquinol) 100 mg Capsule 100 mg PO BID Discharge Orders: Discharge ED (Routine); Ordered 06/06/22 Ordered By: Kiet Hagan Referrals: Polo Nagy, [facility] [Primary Care Provider] - Discharge Diet: Advance as tolerated Discharge Activity: Increase activity as tolerated Patient Instructions: Diverticulitis (ED), Opioid Safety Activity Restrictions/Additional Instructions: Take the antibiotics and other medications we have prescribed. Continue to increase your fluid intake and start resuming a diet as we discussed. If you develop high fever, inability to tolerate medication, increasing pain or other concerning symptoms return to this emergency department immediately. Coding Level of Care Code ED Touch Up Worker for Franklin Sanchez Exam Comprehensive
[2022-06-06] MEDS: ondansetron 2 mg/ML SDV 2 mL 4 MG IVP (14:00)
[2022-06-06 14:09] VITALS: RESP 18; O2SAT 97
[2022-06-06] MEDS: HYDROmorphone 1 mg/mL INJ 1 mL IVP (14:09)
[2022-06-06] MEDS: sodium chloride 0.9% 1,000 ML 999 ML IV (14:10)
[2022-06-06 14:12] LABS: Alanine Aminotransferase 32 U/L (0-33); Albumin Level 4.7 g/dL (3.5-5.2); Alkaline Phosphatase 78 U/L (35-105); Anion Gap 18.2 (5-19); Aspartate Amino Transferase 21 U/L (0-32); Blood Urea Nitrogen 6 mg/dL (6-20); Calcium 9.8 mg/dL (8.5-10.5); Carbon Dioxide 28 mmol/L (22-29); Chloride 101 mmol/L (98-107); Globulin 2.7 g/dL (1.3-4.6); Glomerular Filtration Rate 114.4 mL/min (90-130); Glucose 99 mg/dL (65-115); Lipase 48 U/L (13-60); Osmolality Calculated 294 mOsm/kg (285-295); Potassium 4.2 mmol/L (3.5-5.1); Sodium 143 mmol/L (136-145); Total Bilirubin 0.5 mg/dL (0.15-1.2); Total Protein 7.4 g/dL (6.6-8.7)
--- NOTE | 2022-06-06 14:15 | PC.NURSE ---
Pt sts can't have morphine d/t ineffective, Dr. Hagan notified, order received for Dilaudid. Pt informed this RN after medication was already drawn. Medication was wasted and documented in pyxis with Yudi Mcclain RN. Pt given Dilaudid, reports relief of pain shortly after. Pt to CT at this time, will continue to monitor.
[2022-06-06] MEDS: iohexol 350 mg/mL 100 mL Btl IV (14:17)
[2022-06-06] MEDS: hyoscyamine ODT 0.125 mg Tablet 0.25 MG PO (15:07)
[2022-06-06] MEDS: ampicillin-sulbactam 3 GM in sodium chloride 0.9% (plus) 50 ML IV (15:11)
[2022-06-06 15:34] LABS: HCG Qualitative Urine. Negative (Negative)
[2022-06-06 16:17] VITALS: BP 130/82; PULSE 64; RESP 16; O2SAT 100
== END 2022-06-06 16:19 | disposition home or self-care (01) ==
PROVIDERS: Emergency Medicine; Emergency Provider Emergency Medicine; PCP Nurse Practitioner
DX: K57.92 Diverticulitis of intestine, part unspecified, without perforation or abscess without bleeding (principal); I10 Essential (primary) hypertension
CPT/HCPCS: 74177; 80053; 81025; 83690; 85025; 96365; 96375; 99285; J0295; J1170; J2270; J2405; J7030; Q9967

== ENCOUNTER 2022-06-09 16:13 | Inpatient (IN) | payer MEDICAID, SELFPAY ==
[2022-06-09 16:37] VITALS: BP 126/85; PULSE 114; RESP 18; TEMP 37; O2SAT 100; BMI 25.0
[2022-06-09 17:39] LABS: Basophils # 0.1 10^3/uL (0.0-0.1); Basophils % 0.4 %; Hematocrit 44.8 % (37.0-47.0); Hemoglobin 14.8 g/dL (11.5-15.3); Lymphocytes # 0.8 10^3/uL (0.8-4.8); Lymphocytes % 3.8 %; Mean Corpuscular Volume 93.9 fl (81-99); Mean Platelet Volume 10.9 fL (7.4-10.4); Monocytes # 1.1 10^3/uL (0.2-0.9); Monocytes % 4.8 %; Neutrophils # 19.99 10^3/uL (1.8-7.7); Neutrophils % 90.4 %; Nucleated Red Blood Cells % 0 %; Platelet Count 222 10^3/cmm (130-400); Red Blood Count 4.77 10^6/uL (4.1-5.3); Red Cell Distribution Width 12.8 % (12.1-15.1); White Blood Count 22.1 10^3/uL (4.0-10.0)
[2022-06-09 17:48] LABS: Alanine Aminotransferase 34 U/L (0-33); Albumin Level 4.3 g/dL (3.5-5.2); Alkaline Phosphatase 74 U/L (35-105); Aspartate Amino Transferase 25 U/L (0-32); Blood Urea Nitrogen 11 mg/dL (6-20); Calcium 8.8 mg/dL (8.5-10.5); Carbon Dioxide 26 mmol/L (22-29); Chloride 98 mmol/L (98-107); Creatinine Clr Calc Pharmacy 132.8616; Globulin 2.7 g/dL (1.3-4.6); Glomerular Filtration Rate 114.4 mL/min (90-130); Glucose 102 mg/dL (65-115); Osmolality Calculated 278 mOsm/kg (285-295); Sodium 134 mmol/L (136-145); Total Bilirubin 0.5 mg/dL (0.15-1.2)
[2022-06-09 17:54] LABS: Anion Gap 14.5 (5-19); Potassium 4.5 mmol/L (3.5-5.1)
--- NOTE | 2022-06-09 20:04 | CTR_ITS ---
PROCEDURE INFORMATION: Exam: CT Abdomen And Pelvis With Contrast Exam date and time: 06/09/2022 9:10 PM Age: 36 years old Clinical indication: Abdominal pain; Additional info: Diverticulitis TECHNIQUE: Imaging protocol: Computed tomography of the abdomen and pelvis with contrast. Radiation optimization: All CT scans at this facility use at least one of these dose optimization techniques: automated exposure control; mA and/or kV adjustment per patient size (includes targeted exams where dose is matched to clinical indication); or iterative reconstruction. Contrast material: OMNI 350; Contrast volume: 80 ml; Contrast route: INTRAVENOUS (IV); COMPARISON: CT abdomen pelvis w con* [id number] 06/06/2022 2:12 PM RADIATION DOSE METRICS: Total DLP (mGy-cm): 533.63 FINDINGS: Liver: The liver is fatty but normal in size. Gallbladder and bile ducts: Normal. No calcified stones. No ductal dilation. Pancreas: Normal. No ductal dilation. Spleen: Normal. No splenomegaly. Adrenal glands: Normal. No mass. Kidneys and ureters: Normal. No hydronephrosis. Stomach and bowel: There is wall thickening in the ascending and transverse colon. The more distal colon is normal in size although there focal inflammation around a diverticulum in the distal descending colon. Small bowel contains scattered gas and fluid. Appendix: No evidence of appendicitis. Intraperitoneal space: No free air or free fluid. Vasculature: Unremarkable. No abdominal aortic aneurysm. Lymph nodes: Unremarkable. No enlarged lymph nodes. Urinary bladder: Unremarkable as visualized. Reproductive: Unremarkable as visualized. Bones/joints: Unremarkable. No acute fracture. Soft tissues: Unremarkable. Other findings: No perforation or abscess. No generalized obstruction. CT/CT abdomen pelvis w con* [id number] IMPRESSION: 1. Mild localized diverticulitis in the distal descending colon. 2. Additional generalized colitis in the ascending and transverse colon.
--- NOTE | 2022-06-09 20:05 | USR_ITS ---
PROCEDURE INFORMATION: Exam: US Nonobstetric Pelvis; Complete Exam date and time: 06/09/2022 8:28 PM Age: 36 years old Clinical indication: Patient HX: Patient was seen a few days ago in er for the same complaint of severe llq pelvic pain, CT revealed diverticulitis and diverticulosis. Nulligravida; Additional info: Llq pain TECHNIQUE: Imaging protocol: Transabdominal pelvic nonobstetric ultrasound. Complete exam. Real time ultrasound with image documentation. COMPARISON: CT abdomen pelvis w con* [id number] 06/06/2022 2:12 PM FINDINGS: Uterus: Multiple uterine fibroids, the largest of which measures 3.5 cm. Uterus somewhat prominent measuring 7.1 x 3.5 x 3.9 cm. Endometrial stripe normal 2.7 mm. Right ovary/adnexa: Ovary is normal. No mass. Normal blood flow. Left ovary/adnexa: Ovary is normal. No mass. Normal blood flow. Intraperitoneal space: No intraperitoneal fluid. Urinary bladder: Normal. US/US pelvic complete* [id number] IMPRESSION: 1. Multiple uterine fibroids, the largest of which measures 3.5 cm. 2. Uterus somewhat prominent measuring 7.1 x 3.5 x 3.9 cm. 3. Endometrial stripe normal 2.7 mm.
--- NOTE | 2022-06-09 20:06 | ED_ITS ---
HPI - Abdominal Pain General: Chief Complaint: Abdominal Pain Stated Complaint: fever, body aches, chills Time Seen by Provider: 06/09/22 19:57 History of Present Illness: 36-year-old presents due to left lower quadrant abdominal pain. She was seen here 3 days ago and at that time diagnosed with diverticulitis. States pain is worsened. She has been on Augmentin [place] at home. Denies any pelvic discharge. Denies any dysuria. Review of Systems Narrative: - CONSTITUTIONAL: Denies weight loss, fever and chills. - HEENT: Denies changes in vision and hearing. - RESPIRATORY: Denies SOB and cough. - CV: Denies palpitations and CP. - GI: As above - : Denies dysuria and urinary frequency. - MSK: Denies myalgia and joint pain. - SKIN: Denies rash and pruritus. - NEUROLOGICAL: Denies headache, weakness, numbness and syncope. - PSYCHIATRIC: Denies suicidal ideation [facility] ED PFSH: Medical History Anxiety Longstanding history of anxiety since at least her early 20s and has been on and off medication in the past. Has tried therapy in the past. Currently not on any medication or therapy Chronic left lumbar radiculopathy T12: Mild anterior compression deformity. Mixed increased and decreased signal intensity along the superior endplate without retropulsion. No marrow edema into the posterior elements. No contact on the cord. Mild straightening of the normal lumbar lordosis. No lumbar spine fracture. Benign hemangioma in L3. Mild disc desiccation at L4-5. Conus terminates normally at L1-2 disc level. L1-L2: Normal. L2-L3: Normal. L3-L4: Mild facet and ligamentum flavum hypertrophy with no stenosis. L4-L5: Broad-based shallow central disc protrusion with annular fissure. Broad-based protrusion is abutting the L5 nerve roots bilaterally, greatest on the RIGHT. Significant compression of the RIGHT L5 nerve root. Small amount of fluid in the facet joints. Mild central stenosis. L5-S1: Mild annular disc bulging without stenosis. Small amount of fluid in the facet joints. Paravertebral soft tissues are negative. Essential (primary) hypertension No pertinent past medical history Denies diabetes, asthma, hypertension, seizures, DVT/PE PCP: LYNDA Gatica Surgical History History of appendectomy 05/1998--open appendectomy at the age of 12 History of laparoscopy 07/05/2015---Diagnostic laparoscopy, hysteroscopy and D&C done for chronic pelvic pain/dyspareunia by Dr. Shelton at [facility]. --> Hysteroscopy showed no abnormalities of the endometrium and bilateral ostia noted. Pathology of the D&C showed disordered proliferation with stromal collapse. Diagnostic laparoscopy showed minimal filmy adhesions in the right middle quadrant of the bowel to the sidewall. No other dictations were noted in the pelvis, no signs of endometriosis, normal tubes and ovaries bilaterally, normal uterus, dilated uterine vessels. History of orthopedic surgery (~2002) Left shoulder surgery S/P dilation and curettage 05/14/2012--incomplete with hemorrhage. Performed by Dr. Goldstein at [facility] in [place], [place] S/P LEEP 12/2007---LEEP done for cervical abnormality in [facility]. These records were requested and reviewed. 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 She denied underwent a cone biopsy. Pathology was not obtained.(scanned) Status post laparoscopy 02/19/2006---Diagnostic laparoscopy, hysteroscopy done for chronic pelvic pain and severe dysmenorrhea by Dr. Green at [facility] in [place]. --Operative reports have been received and reviewed and a hysteroscopy, diagnostic laparoscopy was performed. At time of laparoscopy there were filmy adhesions in the right paracolic gutter however no pelvic adhesions, endometriosis or gross abnormalities were noted, hysteroscopy done showed no intracavitary abnormalities either.(Operative report has been scanned-all scripts.) Family History Mother Hypertension Thyroid disease Breast cancer diagnosed in her late 40s Diabetes Father Hypertension Diabetes Sister Hypertension Heart disease Grandmother Diabetes paternal Grandfather Diabetes maternal Denies family history of Colon cancer Ovarian cancer Hyperlipidemia Uterine cancer Stroke Social History Smoking and tobacco status: never smoked Second hand smoke exposure: No Smoking risk assessment/counseling performed?: No Alcohol intake: never Desire information about alcohol rehabilitation?: No Counseling given: No Desire information about substance/drug rehabilitation?: No Counseling given: No Adopted: No Caregiver/support person: No Lives independently: Yes Household members: spouse Housing: House Marital status: Number of children: 5 service: No Current occupational status: employed 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 No acute distress. Well-nourished. - EYES: EOMI. Anicteric. - HENT: Atraumatic, no C-spine tenderness. Moist mucous membranes. No scleral icterus. No cervical lymphadenopathy. - LUNGS: Clear to auscultation bilaterally. No accessory muscle use. Equal lung sounds bilaterally. No respiratory distress. - CARDIOVASCULAR: Regular rate and rhythm. No murmur. No JVD. - ABDOMEN: Soft, left lower quadrant tenderness, non-distended. Negative CVA tenderness bilaterally, no rebound or guarding, negative Perez sign. No palpable masses. - EXTREMITIES: No edema. Non-tender. - SKIN: No rashes or lesions. Warm. - NEUROLOGIC: No meningismus or focal neurological deficits. CN II-XII grossly intact. - PSYCHIATRIC: Cooperative. Appropriate mood and affect. Course Vital Signs: Vital signs: Vital Signs Temperature 98.6 F 06/09/22 16:37 Pulse Rate 114 H 06/09/22 16:37 Respiratory Rate 16 06/09/22 21:00 Blood Pressure 126/85 06/09/22 16:37 Pulse Oximetry 100 06/09/22 16:37 MDM - Abdominal Pain Medical Decision Making 36-year-old presents due to abdominal pain. Has had recent diagnosis of diverticulitis and failed oral therapy with Augmentin at home. CT scan does not reveal any acute complication. Ultrasound also unremarkable. However she does have white count 22. IV Cipro and Flagyl started. Remainder of lab work and imaging reviewed. Discussed with hospitalist and they agreed patient would benefit from admission. Patient admitted in stable condition. Further evaluation management per hospitalist team. Lab Data : 06/09/22 17:28 06/09/22 17:28 Labs/Radiology: Radiology Impressions Abdomen/Pelvis CT 06/09/22 20:04 IMPRESSION: 1. Mild localized diverticulitis in the distal descending colon. 2. Additional generalized colitis in the ascending and transverse colon. Pelvis Ultrasound 06/09/22 20:05 IMPRESSION: 1. Multiple uterine fibroids, the largest of which measures 3.5 cm. 2. Uterus somewhat prominent measuring 7.1 x 3.5 x 3.9 cm. 3. Endometrial stripe normal 2.7 mm. Laboratory Results WBC 22.1 10^3/uL (4.0-10.0) H 06/09/22 17: RBC 4.77 10^6/uL (4.1-5.3) 06/09/22 17:28 Hgb 14.8 g/dL (11.5-15.3) 06/09/22 17: Hct 44.8 % (37.0-47.0) 06/09/22 17: MCV 93.9 fl (81-99) 06/09/22 17: MCH 31.0 pg (28.0-34.0) 06/09/22 17: MCHC 33.0 g/dL (30.0-36.0) 06/09/22 17:28 RDW 12.8 % (12.1-15.1) 06/09/22 17: Plt Count 222 10^3/cmm (130-400) 06/09/22 17: MPV 10.9 fL (7.4-10.4) H 06/09/22 17:28 Neut % (Auto) 90.4 % 06/09/22 17: Lymph % (Auto) 3.8 % 06/09/22 17: Navarro % (Auto) 4.8 % 06/09/22 17:28 Eos % (Auto) 0.0 % 06/09/22 17: Baso % (Auto) 0.4 % 06/09/22 17: Neut # (Auto) 19.99 10^3/uL (1.8-7.7) H 06/09/22 17:28 Lymph # (Auto) 0.8 10^3/uL (0.8-4.8) 06/09/22 17:28 Navarro # (Auto) 1.1 10^3/uL (0.2-0.9) H 06/09/22 17:28 Eos # (Auto) 0.0 10^3/uL (0.0-0.8) 06/09/22 17:28 Baso # (Auto) 0.1 10^3/uL (0.0-0.1) 06/09/22 17:28 Nucleated RBC % (auto) 0 % 06/09/22 17:28 Nucleated RBCs # 0.0 /100WBC 06/09/22 17:28 Sodium 134 mmol/L (136-145) L 06/09/22 17:28 Potassium 4.5 mmol/L (3.5-5.1) 06/09/22 17:28 Chloride 98 mmol/L (98-107) 06/09/22 17:28 Carbon Dioxide 26 mmol/L (22-29) 06/09/22 17:28 Anion Gap 14.5 (5-19) 06/09/22 17:28 BUN 11 mg/dL (6-20) 06/09/22 17:28 Creatinine 0.6 mg/dL (0.5-0.9) 06/09/22 17:28 GFR Calculation 114.4 mL/min (90-130) 06/09/22 17:28 Glucose 102 mg/dL (65-115) 06/09/22 17:28 Calculated Osmolality 278 mOsm/kg (285-295) L 06/09/22 17:28 Calcium 8.8 mg/dL (8.5-10.5) 06/09/22 17:28 Total Bilirubin 0.5 mg/dL (0.15-1.2) 06/09/22 17:28 AST 25 U/L (0-32) 06/09/22 17:28 ALT 34 U/L (0-33) H 06/09/22 17:28 Alkaline Phosphatase 74 U/L (35-105) 06/09/22 17:28 Total Protein 7.0 g/dL (6.6-8.7) 06/09/22 17:28 Albumin 4.3 g/dL (3.5-5.2) 06/09/22 17:28 Globulin 2.7 g/dL (1.3-4.6) 06/09/22 17:28 Lipase 34 U/L (13-60) 06/09/22 17:28 HCG, Qual Negative (Negative) 06/09/22 20:00 Urine Color Yellow (Yellow) 06/09/22 20:00 Urine Appearance Clear (CLEAR) 06/09/22 20:00 Urine pH 8 (5-7) H 06/09/22 20:00 Ur Specific Comfort 1.015 (1.005-1.030) 06/09/22 20:00 Urine Protein Neg (Negative) 06/09/22 20:00 Urine Glucose (UA) Norm (Normal) 06/09/22 20:00 Urine Ketones Negative (Negative) 06/09/22 20:00 Urine Blood Neg (Negative) 06/09/22 20:00 Urine Nitrate Negative (Negative) 06/09/22 20:00 Urine Bilirubin Neg (Negative) 06/09/22 20:00 Prot Sulfosalicylic Acd Negative (Negative) 06/09/22 20:00 Urine Urobilinogen Norm mg/dL (Negative) 06/09/22 20:00 Ur Leukocyte Esterase Negative (Negative) 06/09/22 20:00 Discharge Plan Discharge Condition: Stable Prescriptions: No Action Nexplanon 68 mg implant 1 implant subdermal .every 3 years Qty: 1 0RF Flintstones Multivitamin Tablet,Chewable 2 tab PO DAILY PRN (Reason: unknown) citalopram 40 mg tablet 40 mg PO BEDTIME metoprolol succinate 50 mg tablet extended release 24 hr 50 mg PO BEDTIME magnesium 200 mg Tablet 200 mg PO BEDTIME coQ10 (ubiquinol) 100 mg Capsule 100 mg PO BID amoxicillin-pot clavulanate 875-125 mg tablet 1 tab PO BID Qty: 20 0RF hydrocodone-acetaminophen 7.5-325 mg tablet 1 tab PO Q8H PRN (Reason: pain) Qty: 14 0RF Referrals: Polo Nagy FNP-C [Primary Care Provider] - Coding Level of Care Code ED Director Of Research And Development for [employer] [facility]
[2022-06-09] MEDS: ondansetron 2 mg/ML SDV 2 mL 4 MG IVP (20:24)
[2022-06-09 20:25] VITALS: RESP 16
[2022-06-09] MEDS: HYDROmorphone 1 mg/mL INJ 1 mL 0.5 MG IVP ×2 (20:25→21:00)
--- NOTE | 2022-06-09 20:26 | PC.PHAR ---
PT WAS PRESCRIBED LEVSIN/SL BUT PHARMACY WAS UNABLE TO FILL IT
[2022-06-09 20:27] LABS: Lipase 34 U/L (13-60)
[2022-06-09 20:33] LABS: Add Urine Microscopic? NO; Charge for UA Resulting for Rev
[2022-06-09 20:53] LABS: Bilirubin Urine Neg (Negative); Blood Urine Neg (Negative); Glucose Urine UA Norm (Normal); Ketones Urine Negative (Negative); Leukocyte Esterase Urine Negative (Negative); Nitrate Urine Negative (Negative); Protein Urine Neg (Negative); Specific Gravity, Urine 1.015 (1.005-1.030); Sulfosalicylic Acid Urine Negative (Negative); Urine Appearance Clear (CLEAR); Urine Color Yellow (Yellow); Urobilinogen Urine Norm (Negative); pH Urine 8 (5-7)
[2022-06-09 21:00] VITALS: RESP 16
[2022-06-09 21:13] LABS: HCG Qualitative Urine. Negative (Negative)
[2022-06-09] MEDS: iohexol 350 mg/mL 100 mL Btl IV (21:14)
--- NOTE | 2022-06-09 22:13 | P.HP_ITS ---
Providers/Chief Complaint Primary Care Provider: KATY RiveraC Chief Complaint: fever, body aches, chills History of Present Illness Camilla Vega is a 36 year old female who presents today with chief complaint of worsening of left lower quadrant pain. Patient was seen in the ER on Thursday for diverticulitis she was prescribed Augmentin and discharged home. She is returning because of worsening of her pain, cramps, chills along fever. Patient is stating that for last 1 to 2 weeks she has been noticing abdominal cramps with bloody diarrhea, on Thursday her symptoms got worse Augmentin did not make any difference she only received 3-4 doses, she is back here 102 associated with rigors/chills. She has been experiencing excruciating abdominal pain which she describing as This pain can knock me down She has been experiencing loose stools for last 6 months She is also spearing seeing vaginal discharge which is usual for her after antibiotics In the ER she required Dilaudid 1 mg along fentanyl She is awake and alert Tachycardic Rebound tenderness positive left lower quadrant Family at the bedside She would meet sepsis criteria with leukocytosis, fever at home, tachycardia, lactic acid two-point give her septic bolus at the time of my evaluation she has also received ciprofloxacin and Flagyl CT scan of abdomen pelvis showed mild localized diverticulitis in the distal descending colon along colitis of the ascending and transverse colon I will check her D-dimer, DIC panel CT abdomen pelvis showed colitis in ascending and transverse colon and diverticulitis distal descending colon No signs of abscess formation or perforation 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 Review of Systems Const: Reports: fever(s), chills, body aches and fatigue Eyes: Denies: change in vision ENMT: Denies: throat pain Card: Denies: chest pain Resp: Denies: dyspnea GI: Reports: abdominal pain, nausea and hematochezia : Reports: flank pain Musc: Denies: neck pain Skin/Breast: Denies: rash Neuro: Denies: headache(s) Psych: Reports: anxiety Endo: Denies: polyuria Jayesh/Lymph: Denies: easy bruising All/Imm: Denies: urticaria Medications/Allergies Home Medications Medication Instructions Recorded Confirmed Last Taken Type pediatric multivitamin 2 tab PO DAILY PRN unknown 04/29/20 06/09/22 06/08/22 History (Flintstones Multivitamin) etonogestrel 68 mg subdermal 1 implant subdermal .every 3 years 01/07/21 06/09/22 Unknown Rx implant (Nexplanon) #1 ea amoxicillin 875 mg-potassium 1 tab PO BID #20 tabs 06/06/22 06/09/22 06/09/22 Rx clavulanate 125 mg tablet citalopram 40 mg tablet 40 mg PO BEDTIME 06/06/22 06/09/22 06/08/22 History coQ10 (ubiquinol) 100 mg capsule 100 mg PO BID 06/06/22 06/09/22 06/09/22 History hydrocodone 7.5 mg-acetaminophen 1 tab PO Q8H PRN pain #14 tabs 06/06/22 06/09/22 06/09/22 Rx 325 mg tablet magnesium 200 mg tablet 200 mg PO BEDTIME 06/06/22 06/09/22 06/08/22 History metoprolol succinate 50 mg 50 mg PO BEDTIME 06/06/22 06/09/22 06/08/22 History tablet,extended release 24 hr Allergies Allergy/AdvReac Type Severity Reaction Status Date / Time fluconazole [From Diflucan] AdvReac Mild ADR-Nausea Verified 06/09/22 20:23 venlafaxine [From Effexor] AdvReac Mild causes Verified 06/09/22 20:23 seizures PFSH Acute 2 PFSH: Medical History Anxiety Longstanding history of anxiety since at least her early 20s and has been on and off medication in the past. Has tried therapy in the past. Currently not on any medication or therapy Chronic left lumbar radiculopathy T12: Mild anterior compression deformity. Mixed increased and decreased signal intensity along the superior endplate without retropulsion. No marrow edema into the posterior elements. No contact on the cord. Mild straightening of the normal lumbar lordosis. No lumbar spine fracture. Benign hemangioma in L3. Mild disc desiccation at L4-5. Conus terminates normally at L1-2 disc level. L1-L2: Normal. L2-L3: Normal. L3-L4: Mild facet and ligamentum flavum hypertrophy with no stenosis. L4-L5: Broad-based shallow central disc protrusion with annular fissure. Broad-based protrusion is abutting the L5 nerve roots bilaterally, greatest on the RIGHT. Significant compression of the RIGHT L5 nerve root. Small amount of fluid in the facet joints. Mild central stenosis. L5-S1: Mild annular disc bulging without stenosis. Small amount of fluid in the facet joints. Paravertebral soft tissues are negative. Essential (primary) hypertension No pertinent past medical history Denies diabetes, asthma, hypertension, seizures, DVT/PE PCP: LYNDA Gatica Surgical History History of appendectomy 05/1998--open appendectomy at the age of 12 History of laparoscopy 07/05/2015---Diagnostic laparoscopy, hysteroscopy and D&C done for chronic pelvic pain/dyspareunia by Dr. Shelton at [facility] [place]. --> Hysteroscopy showed no abnormalities of the endometrium and bilateral ostia noted. Pathology of the D&C showed disordered proliferation with stromal collapse. Diagnostic laparoscopy showed minimal filmy adhesions in the right middle quadrant of the bowel to the sidewall. No other dictations were noted in the pelvis, no signs of endometriosis, normal tubes and ovaries bilaterally, normal uterus, dilated uterine vessels. History of orthopedic surgery (~2002) Left shoulder surgery S/P dilation and curettage 05/14/2012--incomplete with hemorrhage. Performed by Dr. Goldstein at [facility] in [place], [place] S/P LEEP 12/2007---LEEP done for cervical abnormality in [facility]. These records were requested and reviewed. 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 She denied underwent a cone biopsy. Pathology was not obtained.(scanned) Status post laparoscopy 02/19/2006---Diagnostic laparoscopy, hysteroscopy done for chronic pelvic pain and severe dysmenorrhea by Dr. Green at [facility] in [place]. --Operative reports have been received and reviewed and a hysteroscopy, diagnostic laparoscopy was performed. At time of laparoscopy there were filmy adhesions in the right paracolic gutter however no pelvic adhesions, endometriosis or gross abnormalities were noted, hysteroscopy done showed no intracavitary abnormalities either.(Operative report has been scanned-all scripts.) Family History Mother Hypertension Thyroid disease Breast cancer diagnosed in her late 40s Diabetes Father Hypertension Diabetes Sister Hypertension Heart disease Grandmother Diabetes paternal Grandfather Diabetes maternal Denies family history of Colon cancer Ovarian cancer Hyperlipidemia Uterine cancer Stroke Social History Smoking and tobacco status: never smoked Second hand smoke exposure: No Smoking risk assessment/counseling performed?: No Alcohol intake: never Desire information about alcohol rehabilitation?: No Counseling given: No Desire information about substance/drug rehabilitation?: No Counseling given: No Adopted: No Caregiver/support person: No Lives independently: Yes Household members: spouse Housing: House Marital status: Number of children: 5 service: No Current occupational status: employed 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 [employer] Pets and animals: Yes History of recent travel: No Current gender identity: Female Vitals/I&O/Wt Last Vital Signs Temp 98.6 F 06/09/22 16:37 Pulse 114 H 06/09/22 16:37 Resp 16 06/09/22 21:00 BP 126/85 06/09/22 16:37 Pulse Ox 100 06/09/22 16:37 Weight last 48 hrs Weight 70.307 kg Physical Exam Narrative: Young female Currently in distress secondary to rebound tenderness of left lower quadrant Otherwise abdomen is soft no signs of rigidity or guarding Localized pain left lower quadrant Awake and alert Dehydrated S1, S2 Adequate bilateral breath sounds with good airflow saturating well on room air Tachycardic Nonfocal neuro exam Family at the bedside Appropriate mood and affect Data : 06/09/22 17:28 06/09/22 17:28 A&P Assessment and plan (1) Diverticulitis: Status: Acute (2) Colitis: Status: Acute Plan Sepsis related to diverticulitis Arteria met with fever at home, currently she is tachycardic, severe leukocytosis along high lactic acid Mild localized radiculitis Colitis I would like to rule out C. difficile as she had received 3 to 4 days of Augmentin Patient has been experiencing loose stools for last 6 months She will definitely benefit from a colonoscopy once this episode has subsided For now there is no abscess or perforation Pain management along IV fluid hydration N.p.o. She has received fentanyl and Dilaudid in the ER I will keep her on 0.4 mg of Dilaudid for now Consider general surgery consult in the morning which would also facilitate outpatient colonoscopy Hematochezia is likely related to diverticular bleed which will resolve spontaneously Currently hemodynamically stable, hemoglobin stable at 14 Continue IV fluid hydration N.p.o. DVT prophylaxis with Lovenox Full code Family at the bedside Fibroids, follows up with Dr. Mendez and, history of fibroids, history of cervical cancer status post LEEP procedure Currently on hormonal treatment Patient is also experiencing vaginal discharge we will give her a dose of fluconazole Attestations Medical Necessity Statement*: Anticipating more than 2 midnights for management of sepsis, diverticulitis Time Spent in Patient Care: 40 Coding Level of Care Code Acute Talent Analyst for [facility] Diagnoses Diverticulitis K57.92 Colitis K52.9
[2022-06-09 22:37] VITALS: RESP 16
[2022-06-09] MEDS: HYDROmorphone 1 mg/mL INJ 1 mL IVP (22:37)
[2022-06-09] MEDS: ciprofloxacin 400 MG/200 ML PREMIX 200 MG IV (22:39)
[2022-06-09 22:51] LABS: Procalcitonin 0.28 ng/mL (0-0.5)
[2022-06-09 22:56] LABS: Lactate (Lactic Acid level) 2.6 mmol/L (0.5-2.2)
[2022-06-09 23:04] VITALS: RESP 14
[2022-06-09] MEDS: fentaNYL 50 mcg/mL INJ 2mL IVP (23:04)
[2022-06-09 23:11] VITALS: BP 111/80; PULSE 95; RESP 16; TEMP 37.2; O2SAT 98
[2022-06-10] VITALS (13 sets, daily range): BP systolic 97–126; BP diastolic 61–83; PULSE 65–111; RESP 12–20; TEMP 36.7–37.9; O2SAT 96–100
[2022-06-10] MEDS: HYDROcodone-acetaminophen 7.5-325 mg Tablet 1 TAB PO ×3 (00:24→17:14)
[2022-06-10] MEDS: fluconazole 100 mg Tablet 200 MG PO (00:25)
[2022-06-10] MEDS: sodium chloride 0.9% 2,109.21 ML 2109.21 ML IV (00:36)
[2022-06-10] MEDS: dextrose 5%-sod chloride 0.45% 1,000 ML 100 ML IV ×3 (01:39→21:06)
[2022-06-10] MEDS: HYDROmorphone 1 mg/mL INJ 1 mL 0.5 MG IVP ×4 (01:42→21:00)
[2022-06-10] MEDS: metoprolol succinate ER (24 HR) 50 mg Tablet PO ×2 (01:42→21:02)
[2022-06-10] MEDS: acetaminophen 500 mg Tablet PO (01:42)
[2022-06-10] MEDS: citalopram 20 mg Tablet 40 MG PO ×2 (01:42→21:02)
[2022-06-10 05:36] LABS: Basophils % 0.3 %; Hematocrit 40.8 % (37.0-47.0); Hemoglobin 13.2 g/dL (11.5-15.3); Lymphocytes # 0.9 10^3/uL (0.8-4.8); Mean Corpuscular HGB Conc 32.4 g/dL (30.0-36.0); Mean Corpuscular Hemoglobin 30.6 pg (28.0-34.0); Mean Corpuscular Volume 94.4 fl (81-99); Mean Platelet Volume 10.9 fL (7.4-10.4); Monocytes # 0.4 10^3/uL (0.2-0.9); Monocytes % 3.5 %; Neutrophils # 10.96 10^3/uL (1.8-7.7); Neutrophils % 88.8 %; Nucleated Red Blood Cells % 0 %; Platelet Count 189 10^3/cmm (130-400); Red Blood Count 4.32 10^6/uL (4.1-5.3); Red Cell Distribution Width 12.8 % (12.1-15.1); White Blood Count 12.4 10^3/uL (4.0-10.0)
[2022-06-10 05:48] LABS: Lactate (Lactic Acid level) 1.2 mmol/L (0.5-2.2)
[2022-06-10 05:50] LABS: Anion Gap 10.7 (5-19); Blood Urea Nitrogen 7 mg/dL (6-20); C Reactive Protein 88.7 mg/L (0.0-4.9); Carbon Dioxide 24 mmol/L (22-29); Chloride 104 mmol/L (98-107); Glomerular Filtration Rate 95.8 mL/min (90-130); Glucose 96 mg/dL (65-115); Magnesium 1.9 mg/dL (1.7-2.3); Osmolality Calculated 278 mOsm/kg (285-295); Potassium 3.7 mmol/L (3.5-5.1); Sodium 135 mmol/L (136-145)
[2022-06-10] MEDS: ondansetron 2 mg/ML SDV 2 mL 4 MG IVP ×2 (08:34→16:20)
[2022-06-10] MEDS: piperacillin-tazobactam 3.375 GM in sodium chloride 0.9% (plus) 50 ML IV ×2 (08:35→17:17)
[2022-06-10] MEDS: pantoprazole 40 mg SDV IVP (08:35)
--- NOTE | 2022-06-10 12:12 | PC.CHAP ---
Pastoral Care Encounter/Spiritual Assessment Type of Contact [] Declined computer lab para professional visit [] Patient/Family/Request visit [] Outpatient visit [] Follow-up visit [] Physician referral [] Code/Alert [] Routine visit [] Staff referral [] Actively dying [] Patient sleeping [] Family support [] [] Out of room [] Palliative care [] [] Receiving care in room [] Pre-surgical visit [] Trauma [] Long length of stay [] ICU visit [] Other: Relational/Emotional Strength [] Patient feels connected with others/family/visitors/staff [] Distress [] Loneliness/isolation [] Abandonment Spirituality of Patient [] Person of Belkis [] Attends Uatsdin of their Belkis [] Believes in Prayer [] Reads Bible or Caodaism materials [] There are Spiritual issues to be addressed Supervisory Air Intercept Controller Interventions [] Prayer [] Active listening [] Non-anxious presence [] Spiritual/emotional support [] Crisis/trauma care [] Spiritual counseling [] Bereavement support [] Provided bereavement packet [] Provided Bible/devotional materials [] Provided toy/stuffed animal, coloring book to patient or family member [] Provided Communion [] Anointing/[place] [] Salvation [] Completed spiritual assessment [] Other: Impact on Illness or Injury [] Angry [] Fearful [] Anxious [] Often cries [] Exhaustion [] Unable to work [] Unable to attend anabaptist [] Unable to walk/stand [] Unable to read [] Unable to drive [] Unable to eat/drink [] Unable to sleep [] Unable to be with family [] Patient intubated [] Other: Summary Time spent with patient Pastoral Care Encounter/Spiritual Assessment Type of Contact [] Declined computer lab para professional visit [] Patient/Family/Request visit [] Outpatient visit [] Follow-up visit [] Physician referral [] Code/Alert [x] Routine visit [] Staff referral [] Actively dying [x] Patient sleeping [] Family support [] [] Out of room [] Palliative care [] [] Receiving care in room [] Pre-surgical visit [] Trauma [] Long length of stay [] ICU visit [] Other: Relational/Emotional Strength [] Patient feels connected with others/family/visitors/staff [] Distress [] Loneliness/isolation [] Abandonment Spirituality of Patient [] Person of Belkis [] Attends Uatsdin of their Belkis [] Believes in Prayer [] Reads Bible or Caodaism materials [] There are Spiritual issues to be addressed Supervisory Air Intercept Controller Interventions [] Prayer [] Active listening [] Non-anxious presence [] Spiritual/emotional support [] Crisis/trauma care [] Spiritual counseling [] Bereavement support [] Provided bereavement packet [] Provided Bible/devotional materials [] Provided toy/stuffed animal, coloring book to patient or family member [] Provided Communion [] Anointing/[place] [] Salvation [] Completed spiritual assessment [] Other: Impact on Illness or Injury [] Angry [] Fearful [] Anxious [] Often cries [] Exhaustion [] Unable to work [] Unable to attend anabaptist [] Unable to walk/stand [] Unable to read [] Unable to drive [] Unable to eat/drink [] Unable to sleep [] Unable to be with family [] Patient intubated [] Other: Summary Time spent with patient
--- NOTE | 2022-06-10 14:59 | P.PN_ITS ---
Subjective Subjective: Still cramping abdominal pain, particular left lower quadrant, watery diarrhea. Nausea, no vomiting or dry heaving. Low-grade fever. No cough or shortness of breath. Vitals/I&O/Wt Last Vital Signs Temp 98.5 F 06/10/22 11:48 Pulse 85 06/10/22 11:48 Resp 12 06/10/22 12:41 BP 103/70 06/10/22 11:48 Pulse Ox 97 06/10/22 11:48 O2 Del Method 06/10/22 11:48 06/09/22 06/10/22 06/10/22 22:59 06:59 14:59 Intake Total 2309.21 / 2309.21 1050 / 1050 Balance 2309.21 / 2309.21 1050 / 1050 Weight last 48 hrs Weight 70.307 kg Physical Exam Const: COMMON NORMALS: patient oriented x3 and alert GENERAL APPEARANCE: cooperative ORIENTATION/CONSCIOUSNESS: Yes awake HENMT: COMMON NORMALS: oropharynx normal Neck/C-Spine: COMMON NORMALS: no JVD Resp: COMMON NORMALS: normal respiratory effort and clear to auscultation bilaterally AUSCULTATION: clear to auscultation bilaterally Cardio: COMMON NORMALS: no JVD, regular rhythm, S1 normal heart sound present, S2 normal heart sound present and No murmurs present (Cardio) RHYTHM: regular rhythm HEART SOUNDS: S1 normal heart sound present and S2 normal heart sound present GI: COMMON NORMALS: Normal to inspection, nondistended, normoactive bowel sounds present and Soft to palpation PALPATION: Yes Soft to palpation OTHER: Tender LLQ Extremity: COMMON NORMALS: no joint enlargement and no pedal edema Neuro: COMMON NORMALS: patient oriented x3 and moves all extremities SENSORIUM/ORIENTATION: Yes alert Skin: COMMON NORMALS: no rashes or lesions noted GENERAL SKIN EXAM: no rashes or lesions noted Data : 06/10/22 05:26 06/10/22 05:26 Micro: Microbiology 06/10/22 05:09 Enteric Pathogens (PCR) - Final Stool Routine Collection C.difficile Toxin B Gene (PCR) - Final 06/09/22 22:31 Blood Culture - Preliminary Blood SPECIMEN COLLECTED 06/09/22 22:29 Blood Culture - Preliminary Blood SPECIMEN COLLECTED A&P Assessment and plan (1) Diverticulitis: Continue Pulido Zosyn for now. Will need colonoscopy in 6 weeks. Status: Acute (2) Colitis: Appears to have Salmonella enteritis. Continue supportive care, IV fluid. Bowel rest. Pain and nausea medication. Status: Acute Plan Sepsis related to diverticulitis: Improving. Continue IV antibiotics as above. Fibroids, follows up with Dr. Mendez and, history of fibroids, history of cervical cancer status post LEEP procedure Currently on hormonal treatment Received a dose of fluconazole due to vaginal discharge Attestations Medical Necessity Statement*: Continue admission for assessment management of diverticulitis, colitis, possible improving sepsis. Coding Level of Care Code Acute [facility]ooter for [facility] Fwd Exam Comprehensive Diagnoses Diverticulitis K57.92 Colitis K52.9
--- NOTE | 2022-06-10 18:54 | PC.NURSE ---
Report given to Danielle SALAS at this time
[2022-06-11] VITALS (10 sets, daily range): BP systolic 100–121; BP diastolic 68–86; PULSE 65–80; RESP 16–18; TEMP 36.6–37.1; O2SAT 96–98
[2022-06-11] MEDS: HYDROmorphone 1 mg/mL INJ 1 mL 0.5 MG IVP ×2 (01:05→08:11)
[2022-06-11] MEDS: ondansetron 2 mg/ML SDV 2 mL 4 MG IVP (01:06)
[2022-06-11] MEDS: piperacillin-tazobactam 3.375 GM in sodium chloride 0.9% (plus) 50 ML IV ×3 (01:09→18:07)
[2022-06-11 05:03] LABS: Basophils % 0.4 %; Eosinophils # 0.1 10^3/uL (0.0-0.8); Eosinophils % 0.6 %; Hematocrit 39.9 % (37.0-47.0); Hemoglobin 12.7 g/dL (11.5-15.3); Lymphocytes # 1.3 10^3/uL (0.8-4.8); Lymphocytes % 16.9 %; Mean Corpuscular HGB Conc 31.8 g/dL (30.0-36.0); Mean Corpuscular Hemoglobin 30.2 pg (28.0-34.0); Mean Platelet Volume 10.8 fL (7.4-10.4); Monocytes # 0.7 10^3/uL (0.2-0.9); Monocytes % 8.4 %; Neutrophils # 5.75 10^3/uL (1.8-7.7); Neutrophils % 73.3 %; Nucleated Red Blood Cells % 0 %; Platelet Count 173 10^3/cmm (130-400); Red Cell Distribution Width 13.2 % (12.1-15.1); White Blood Count 7.9 10^3/uL (4.0-10.0)
[2022-06-11 05:27] LABS: Alanine Aminotransferase 20 U/L (0-33); Albumin Level 3.3 g/dL (3.5-5.2); Alkaline Phosphatase 61 U/L (35-105); Anion Gap 11.7 (5-19); Aspartate Amino Transferase 17 U/L (0-32); Blood Urea Nitrogen 4 mg/dL (6-20); Calcium 8.5 mg/dL (8.5-10.5); Carbon Dioxide 22 mmol/L (22-29); Chloride 104 mmol/L (98-107); Globulin 2.7 g/dL (1.3-4.6); Glomerular Filtration Rate 95.8 mL/min (90-130); Glucose 91 mg/dL (65-115); Osmolality Calculated 274 mOsm/kg (285-295); Potassium 3.7 mmol/L (3.5-5.1); Sodium 134 mmol/L (136-145); Total Bilirubin 0.4 mg/dL (0.15-1.2)
[2022-06-11] MEDS: HYDROcodone-acetaminophen 7.5-325 mg Tablet 1 TAB PO (06:05)
[2022-06-11] MEDS: dextrose 5%-sod chloride 0.45% 1,000 ML 100 ML IV (06:06)
[2022-06-11] MEDS: pantoprazole 40 mg SDV IVP (08:09)
[2022-06-11] MEDS: hyoscyamine ODT 0.125 mg Tablet PO ×2 (13:37→19:30)
--- NOTE | 2022-06-11 16:37 | P.PN_ITS ---
Subjective Subjective: She is not having persistent abdominal pain anymore, but still having intermittent cramps and when cramps do hit her they are still fairly severe as of this morning. Discussed with her to let us know as symptoms are improving she could try some clear liquids. She has not had any vomiting. Later on reporting to her nurse that Levsin had helped her previously after she received it in ER and requesting to resume. No chest pain or shortness of breath. Vitals/I&O/Wt Last Vital Signs Temp 98.3 F 06/11/22 15:56 Pulse 80 06/11/22 15:56 Resp 18 06/11/22 15:56 BP 109/75 06/11/22 15:56 Pulse Ox 98 06/11/22 15:56 O2 Del Method 06/11/22 15:56 06/11/22 06/11/22 06/11/22 06:59 14:59 22:59 Intake Total 1450 / 3433.333 Balance 1450 / 3433.333 Physical Exam Const: COMMON NORMALS: patient oriented x3 and alert GENERAL APPEARANCE: cooperative ORIENTATION/CONSCIOUSNESS: Yes awake HENMT: COMMON NORMALS: oropharynx normal Neck/C-Spine: COMMON NORMALS: no JVD Resp: COMMON NORMALS: normal respiratory effort and clear to auscultation bilaterally AUSCULTATION: clear to auscultation bilaterally Cardio: COMMON NORMALS: no JVD, regular rhythm, S1 normal heart sound present, S2 normal heart sound present and No murmurs present (Cardio) RHYTHM: regular rhythm HEART SOUNDS: S1 normal heart sound present and S2 normal heart sound present GI: COMMON NORMALS: Normal to inspection, nondistended, normoactive bowel sounds present and Soft to palpation PALPATION: Yes Soft to palpation OTHER: Tender LLQ Extremity: COMMON NORMALS: no joint enlargement and no pedal edema Neuro: COMMON NORMALS: patient oriented x3 and moves all extremities SENSO RIUM/ORIENTATION: Yes alert Skin: COMMON NORMALS: no rashes or lesions noted GENERAL SKIN EXAM: no rashes or lesions noted Data : 06/11/22 04:39 06/11/22 04:39 Micro: Microbiology 06/09/22 22:31 Blood Culture - Preliminary Blood NEGATIVE TO DATE 06/09/22 22:29 Blood Culture - Preliminary Blood NEGATIVE TO DATE 06/10/22 05:09 Enteric Pathogens (PCR) - Final Stool Routine Collection Parasite Antigen Panel - Final C.difficile Toxin B Gene (PCR) - Final A&P Assessment and plan (1) Diverticulitis: For now continue bowel rest given still intermittent cramping which is bothersome to her, although it is appearing to be decreasing in frequency. Con tinue empiric Zosyn for now. Continue IV hydration while n.p.o. Additionally enterocolitis secondary to Salmonella. Discussed with her outpatient follow-up to seek colonoscopy in 6 weeks. Status: Acute (2) Colitis: Appears to have Salmonella enteritis. Continue supportive care, IV fluid. Bowel rest. Pain and nausea medication. Status: Acute Plan Sepsis related to diverticulitis: Improving. Continue IV antibiotics as above. Fibroids, follows up with Dr. Mendez and, history of fibroids, history of cervical cancer status post LEEP procedure Currently on hormonal treatment Received a dose of fluconazole due to vaginal discharge Attestations Medical Necessity Statement*: Continue to for assessment of management of diverticulitis, Salmonella enterocolitis not responsive to outpatient treatment, bowel rest, IV fluid infusion. Coding Level of Care Code Acute Olive Packer for [facility] Diagnoses Diverticulitis K57.92 Colitis K52.9
[2022-06-11] MEDS: citalopram 20 mg Tablet 40 MG PO (19:30)
[2022-06-11] MEDS: metoprolol succinate ER (24 HR) 50 mg Tablet PO (19:30)
[2022-06-11] MEDS: acetaminophen 500 mg Tablet PO (20:27)
[2022-06-12] MEDS: dextrose 5%-sod chloride 0.45% 1,000 ML 100 ML IV ×2 (01:41→10:45)
[2022-06-12] MEDS: piperacillin-tazobactam 3.375 GM in sodium chloride 0.9% (plus) 50 ML IV ×2 (01:42→09:33)
[2022-06-12] MEDS: hyoscyamine ODT 0.125 mg Tablet PO ×2 (01:44→09:41)
[2022-06-12 04:00] VITALS: BP 108/74; PULSE 69; RESP 17; TEMP 36.7; O2SAT 99
[2022-06-12 05:05] LABS: Basophils % 0.7 %; Eosinophils # 0.2 10^3/uL (0.0-0.8); Eosinophils % 3.5 %; Hematocrit 41.8 % (37.0-47.0); Hemoglobin 13.6 g/dL (11.5-15.3); Lymphocytes # 1.6 10^3/uL (0.8-4.8); Lymphocytes % 29.5 %; Mean Corpuscular HGB Conc 32.5 g/dL (30.0-36.0); Mean Corpuscular Hemoglobin 30.5 pg (28.0-34.0); Mean Corpuscular Volume 93.7 fl (81-99); Mean Platelet Volume 11.1 fL (7.4-10.4); Monocytes # 0.7 10^3/uL (0.2-0.9); Monocytes % 12.6 %; Neutrophils # 2.93 10^3/uL (1.8-7.7); Neutrophils % 53.3 %; Nucleated Red Blood Cells % 0 %; Platelet Count 212 10^3/cmm (130-400); Red Blood Count 4.46 10^6/uL (4.1-5.3); Red Cell Distribution Width 13.3 % (12.1-15.1); White Blood Count 5.5 10^3/uL (4.0-10.0)
[2022-06-12 05:42] LABS: Alanine Aminotransferase 17 U/L (0-33); Albumin Level 3.4 g/dL (3.5-5.2); Alkaline Phosphatase 62 U/L (35-105); Aspartate Amino Transferase 14 U/L (0-32); Blood Urea Nitrogen 3 mg/dL (6-20); Calcium 9.1 mg/dL (8.5-10.5); Carbon Dioxide 27 mmol/L (22-29); Chloride 105 mmol/L (98-107); Globulin 2.9 g/dL (1.3-4.6); Glomerular Filtration Rate 95.8 mL/min (90-130); Glucose 94 mg/dL (65-115); Osmolality Calculated 284 mOsm/kg (285-295); Sodium 139 mmol/L (136-145); Total Bilirubin 0.4 mg/dL (0.15-1.2); Total Protein 6.3 g/dL (6.6-8.7)
[2022-06-12 07:39] VITALS: PULSE 72; RESP 16; O2SAT 98
[2022-06-12 08:00] VITALS: BP 111/77; PULSE 61; RESP 16; TEMP 36.7; O2SAT 96
[2022-06-12] MEDS: pantoprazole 40 mg SDV IVP (09:33)
--- NOTE | 2022-06-12 11:25 | PM.DCS ---
Discharge Providers Date of Admission: 06/09/22 22:00 Date of Discharge: June 12, 2022 Attending Provider at Admission: Meliza West MD Attending Provider at Discharge: Shawn Garcia Primary Care Provider: BENI Rivera Diagnoses at Discharge Discharge Diagnosis (1) Diverticulitis: Status: Acute (2) Colitis: Status: Acute Reason for Visit Reason for Visit: fever, body aches, chills Hospital Course Hospital Course Pleasant 36-year-old lady was admitted due to worsening left lower quadrant pain initially diagnosed with diverticulitis on Thursday on prior visit to ER, was started on Augmentin however, because of worsening pain, cramps, watery diarrhea, chills, fever, and presentation with possible sepsis, with noted uncomplicated diverticulitis in distal descending colon, as well as generalized colitis in ascending and transverse colon on CT was started on intravenous antibiotics in the hospital, IV fluid support, bowel regimen. While in the hospital received Zosyn. With gradual improvement in symptoms, with cramping she noticed helped by his thiamine more than pain medications. Sepsis resolved. Symptoms continue to gradually improve. She currently tolerates clear liquids and is overall feeling much better. Salmonella DNA found in stool. She is not sure where she may have contracted the illness. She states she and her family mostly cook at home, if they eat out they usually all eat similar meals, and nobody else has been ill. The frequently tests are well water, and states will tested again. She will complete course with Cipro and Flagyl for diverticulitis. Please discuss consideration of colonoscopy in 6 to 8 weeks after recovery from acute illness. Consider colonoscopy also in case of recurrent colitis with history of autoimmune disease in the family. On presentation due to vaginal discharge also received a dose of fluconazole. Physical Exam Const: COMMON NORMALS: patient oriented x3 and alert GENERAL APPEARANCE: cooperative ORIENTATION/CONSCIOUSNESS: Yes awake HENMT: COMMON NORMALS: oropharynx normal Neck/C-Spine: COMMON NORMALS: no JVD Resp: COMMON NORMALS: normal respiratory effort and clear to auscultation bilaterally AUSCULTATION: clear to auscultation bilaterally Cardio: COMMON NORMALS: no JVD, regular rhythm, S1 normal heart sound present, S2 normal heart sound present and No murmurs present (Cardio) RHYTHM: regular rhythm HEART SOUNDS: S1 normal heart sound present and S2 normal heart sound present GI: COMMON NORMALS: Normal to inspection, nondistended, normoactive bowel sounds present and Soft to palpation PALPATION: Yes Soft to palpation OTHER: Improving residual now mild tenderness Extremity: COMMON NORMALS: no joint enlargement and no pedal edema Neuro: COMMON NORMALS: patient oriented x3 and moves all extremities SENSORIUM/ORIENTATION: Yes alert Skin: COMMON NORMALS: no rashes or lesions noted GENERAL SKIN EXAM: no rashes or lesions noted Discharge Data Studies Completed and Pending Completed Studies During Hospitalization Category Date Time Status CT abdomen pelvis w con* [id number] Stat Cat Scan 06/09/22 20:04 Completed US pelvic complete* [id number] Stat Ultrasound 06/09/22 20:05 Completed Pending at discharge Category Date Time Status Blood Culture Stat Lab 06/09/22 22:31 Results Complete Blood Count w/Auto AM LABS Lab 06/13/22 04:00 Ordered Comprehensive Metabolic Panel AM LABS Lab 06/13/22 04:00 Ordered Radiology Impressions Abdomen/Pelvis CT 06/09/22 20:04 IMPRESSION: 1. Mild localized diverticulitis in the distal descending colon. 2. Additional generalized colitis in the ascending and transverse colon. Pelvis Ultrasound 06/09/22 20:05 IMPRESSION: 1. Multiple uterine fibroids, the largest of which measures 3.5 cm. 2. Uterus somewhat prominent measuring 7.1 x 3.5 x 3.9 cm. 3. Endometrial stripe normal 2.7 mm. Laboratory Results WBC 5.5 10^3/uL (4.0-10.0) 06/12/22 04:46 RBC 4.46 10^6/uL (4.1-5.3) 06/12/22 04:46 Hgb 13.6 g/dL (11.5-15.3) 06/12/22 04:46 Hct 41.8 % (37.0-47.0) 06/12/22 04:46 MCV 93.7 fl (81-99) 06/12/22 04:46 MCH 30.5 pg (28.0-34.0) 06/12/22 04:46 MCHC 32.5 g/dL (30.0-36.0) 06/12/22 04:46 RDW 13.3 % (12.1-15.1) 06/12/22 04:46 Plt Count 212 10^3/cmm (130-400) 06/12/22 04:46 MPV 11.1 fL (7.4-10.4) H 06/12/22 04:46 Neut % (Auto) 53.3 % 06/12/22 04:46 Lymph % (Auto) 29.5 % 06/12/22 04:46 [place] % (Auto) 12.6 % 06/12/22 04:46 Eos % (Auto) 3.5 % 06/12/22 04:46 Baso % (Auto) 0.7 % 06/12/22 04:46 Neut # (Auto) 2.93 10^3/uL (1.8-7.7) 06/12/22 04:46 Lymph # (Auto) 1.6 10^3/uL (0.8-4.8) 06/12/22 04:46 [place] # (Auto) 0.7 10^3/uL (0.2-0.9) 06/12/22 04:46 Eos # (Auto) 0.2 10^3/uL (0.0-0.8) 06/12/22 04:46 Baso # (Auto) 0.0 10^3/uL (0.0-0.1) 06/12/22 04:46 Nucleated RBC % (auto) 0 % 06/12/22 04:46 Nucleated RBCs # 0.0 /100WBC 06/12/22 04:46 Sodium 139 mmol/L (136-145) 06/12/22 04:46 Potassium 4.0 mmol/L (3.5-5.1) 06/12/22 04:46 Chloride 105 mmol/L (98-107) 06/12/22 04:46 Carbon Dioxide 27 mmol/L (22-29) 06/12/22 04:46 Anion Gap 11.0 (5-19) 06/12/22 04:46 BUN 3 mg/dL (6-20) L 06/12/22 04:46 Creatinine 0.7 mg/dL (0.5-0.9) 06/12/22 04:46 GFR Calculation 95.8 mL/min (90-130) 06/12/22 04:46 Glucose 94 mg/dL (65-115) 06/12/22 04:46 Calculated Osmolality 284 mOsm/kg (285-295) L 06/12/22 04:46 Lactate 1.2 mmol/L (0.5-2.2) 06/10/22 05:26 Calcium 9.1 mg/dL (8.5-10.5) 06/12/22 04:46 Magnesium 1.9 mg/dL (1.7-2.3) 06/10/22 05:26 Total Bilirubin 0.4 mg/dL (0.15-1.2) 06/12/22 04:46 AST 14 U/L (0-32) 06/12/22 04:46 ALT 17 U/L (0-33) 06/12/22 04:46 Alkaline Phosphatase 62 U/L (35-105) 06/12/22 04:46 C-Reactive Protein 88.7 mg/L (0.0-4.9) H 06/10/22 05:26 Total Protein 6.3 g/dL (6.6-8.7) L 06/12/22 04:46 Albumin 3.4 g/dL (3.5-5.2) L 06/12/22 04:46 Globulin 2.9 g/dL (1.3-4.6) 06/12/22 04:46 Lipase 34 U/L (13-60) 06/09/22 17:28 Procalcitonin 0.28 ng/mL (0-0.5) 06/09/22 17:25 HCG, Qual Negative (Negative) 06/09/22 20:00 Urine Color Yellow (Yellow) 06/09/22 20:00 Urine Appearance Clear (CLEAR) 06/09/22 20:00 Urine pH 8 (5-7) H 06/09/22 20:00 Ur Specific [place] 1.015 (1.005-1.030) 06/09/22 20:00 Urine Protein Neg (Negative) 06/09/22 20:00 Urine Glucose (UA) Norm (Normal) 06/09/22 20:00 Urine Ketones Negative (Negative) 06/09/22 20:00 Urine Blood Neg (Negative) 06/09/22 20:00 Urine Nitrate Negative (Negative) 06/09/22 20:00 Urine Bilirubin Neg (Negative) 06/09/22 20:00 Prot Sulfosalicylic Acd Negative (Negative) 06/09/22 20:00 Urine Urobilinogen Norm mg/dL (Negative) 06/09/22 20:00 Ur Leukocyte Esterase Negative (Negative) 06/09/22 20:00 Vitals Last Vital Signs Temp 98.1 F 06/12/22 08:00 Pulse 61 06/12/22 08:00 Resp 16 06/12/22 08:00 BP 111/77 06/12/22 08:00 Pulse Ox 96 06/12/22 08:00 O2 Del Method 06/12/22 08:00 Discharge Plan Discharge Patient Disposition: Home Condition: Stable Prescriptions: New ciprofloxacin HCl [Cipro] 500 mg tablet 500 mg PO BID Qty: 14 0RF metronidazole 500 mg tablet 500 mg PO Q8H 7 Days Qty: 21 0RF hyoscyamine sulfate [Anaspaz] 0.125 mg Tablet,Disintegrating 0.125 mg PO Q6H PRN (Reason: Cramping) Qty: 30 0RF Continued Nexplanon 68 mg implant 1 implant subdermal .every 3 years Qty: 1 0RF Flintstones Multivitamin Tablet,Chewable 2 tab PO DAILY PRN (Reason: unknown) citalopram 40 mg tablet 40 mg PO BEDTIME metoprolol succinate 50 mg tablet extended release 24 hr 50 mg PO BEDTIME magnesium 200 mg Tablet 200 mg PO BEDTIME coQ10 (ubiquinol) 100 mg Capsule 100 mg PO BID hydrocodone-acetaminophen 7.5-325 mg tablet 1 tab PO Q8H PRN (Reason: pain) Qty: 14 0RF Discontinued amoxicillin-pot clavulanate 875-125 mg tablet 1 tab PO BID Qty: 20 0RF Discharge Orders: Discharge Order (Routine); Ordered 06/12/22 Ordered By: Shawn Garcia Referrals: Polo Nagy [email or web address] [Primary Care Provider] - 06/25/22 10:40 am Discharge Diet: Advance as tolerated and Full LIquid Patient Instructions: Diverticulitis (GEN), Salmonella Infection (GEN) Activity Restrictions/Additional Instructions: Discuss with your primary doctor regarding diverticulitis and Salmonella enterocolitis. Discuss with your primary provider consideration of colonoscopy 6-8 weeks after recovering from diverticulitis. Consider colonoscopy evaluation in case of recurrent colitis with family history of autoimmune disease. Continue follow-up with gynecology. Discharge Attestations Time Spent in Discharge Care*: greater than 30 min Quality Metrics Clinical Quality Measures [ No reported AMI, CVA or VTE this stay] Coding Level of Care Code Acute Chg FW DC note Diagnoses Diverticulitis K57.92 Colitis K52.9
--- NOTE | 2022-06-12 11:40 | PC.NURSE ---
patient verbalized understanding of discharge instructions, home medications, and follow up appointments.
[2022-06-12 11:51] VITALS: BP 111/77; PULSE 61; RESP 16; TEMP 36.7; O2SAT 96
== END 2022-06-12 11:53 | disposition home or self-care (01) | DRG 871 ==
LOC: ER 20:07 → MEDSURG 22:39
PROVIDERS: Family Medicine; Admitting Provider Internal Medicine; Emergency Provider Emergency Medicine; PCP Nurse Practitioner; Visit Provider Internal Medicine
DX: A41.9 Sepsis, unspecified organism (principal); K57.33 Diverticulitis of large intestine without perforation or abscess with bleeding; A02.0 Salmonella enteritis; I10 Essential (primary) hypertension; N89.8 Other specified noninflammatory disorders of vagina; F41.9 Anxiety disorder, unspecified; M54.16 Radiculopathy, lumbar region; D25.9 Leiomyoma of uterus, unspecified; Z90.89 Acquired absence of other organs; Z85.41 Personal history of malignant neoplasm of cervix uteri; Z97.5 Presence of (intrauterine) contraceptive device
CPT/HCPCS: 36415; 74177; 76856; 80048; 80053; 81003; 81025; 83605; 83690; 83735; 84145; 85025; 86140; 87040; 87493; 87506; 94760; 96365; 96367; 96375; 96376; 99285; C9113; J0744; J1170; J2405; J2543; J3010; J7030; J7799; Q9967

== ENCOUNTER 2022-06-17 14:00 | Emergency (ER) | payer MEDICAID, SELFPAY ==
[2022-06-17 14:16] VITALS: BP 153/83; PULSE 102; RESP 12; TEMP 36.9; O2SAT 99
--- NOTE | 2022-06-17 14:47 | XRR_ITS ---
PROCEDURE INFORMATION: Exam: XR Complete Acute Abdomen Series Including Chest Exam date and time: 06/17/2022 3:14 PM Age: 36 years old Clinical indication: Abdominal pain; Prior surgery; Surgery type: Appy; Patient HX: HX of cervical cancer; Additional info: Abd pain TECHNIQUE: Imaging protocol: Radiologic exam. Complete acute abdomen series, including 2 or more views of the abdomen and a single view chest. COMPARISON: CT abdomen pelvis w con* [id number] 06/09/2022 9:10 PM FINDINGS: Lungs: Normal. No consolidation. Pleural spaces: Normal. No pleural effusions. No pneumothorax. Heart/Mediastinum: There is a heart shaped object projecting in the epigastric/periumbilical region measuring about 4.7 x 3.6 cm. This may represent an overlying external jewelry/other external objects however an ingested foreign body within the GI tract or other foreign bodies cannot be excluded. Clinical correlation is needed. Gastrointestinal tract: Moderate stool burden. No bowel obstruction or obvious pneumatosis. Intraperitoneal space: Normal. No free air. Vasculature: Small pelvic calcifications are likely phleboliths. Bones/joints: No acute findings. Soft tissues: No acute findings. Other findings: Three views submitted. XR/XR acute abdomen series [id number] IMPRESSION: High-density object projecting in the epigastric/periumbilical region as described. No acute findings otherwise.
[2022-06-17 15:07] LABS: Basophils # 0.1 10^3/uL (0.0-0.1); Basophils % 0.7 %; Eosinophils # 0.1 10^3/uL (0.0-0.8); Eosinophils % 1.7 %; Hematocrit 46.9 % (37.0-47.0); Hemoglobin 15.6 g/dL (11.5-15.3); Lymphocytes # 1.7 10^3/uL (0.8-4.8); Lymphocytes % 21.8 %; Mean Corpuscular HGB Conc 33.3 g/dL (30.0-36.0); Mean Corpuscular Hemoglobin 30.8 pg (28.0-34.0); Mean Corpuscular Volume 92.5 fl (81-99); Mean Platelet Volume 10.3 fL (7.4-10.4); Monocytes # 0.6 10^3/uL (0.2-0.9); Monocytes % 7.5 %; Neutrophils # 5.12 10^3/uL (1.8-7.7); Neutrophils % 66.6 %; Nucleated Red Blood Cells % 0 %; Platelet Count 366 10^3/cmm (130-400); Red Blood Count 5.07 10^6/uL (4.1-5.3); Red Cell Distribution Width 13.4 % (12.1-15.1); White Blood Count 7.7 10^3/uL (4.0-10.0)
--- NOTE | 2022-06-17 15:16 | W.ED.ABDPA2 ---
HPI - Abdominal Pain General: Chief Complaint: Abdominal Pain Stated Complaint: sent by sarah prince pain Time Seen by Provider: 06/17/22 14:46 Source: patient Mode of arrival: ambulatory Limitations: no limitations History of Present Illness: 36-year-old female presents emergency room complaining of abdominal pain. Patient reports diffuse abdominal pain no fever sweats chills nausea vomiting or diarrhea she has had constipation. MD elicited complaint: abdominal pain Onset (ago): day(s) Pain Consistency: constant Location: Diffuse Severity: moderate Quality: cramping Radiation: none Migration to: no migration Exacerbating factors: nothing Relieving factors: nothing Associated Symptoms: Reports bloating, change in bowel habits, constipation and GI cramping; Denies anorexia, belching, change in stool character, chills, coffee ground emesis, diarrhea, dyspepsia, dysuria, excessive flatus, fever(s), heartburn, hematochezia, hematuria, hematemesis, fecal incontinence, loose stools, melena, nausea, poor appetite, syncope and vomiting Review of Systems Const: Denies: fever(s), chills, fatigue or malaise ENMT: Denies: throat pain, ear or mastoid pain, nasal discharge or nasal congestion Card: Denies: chest pain, palpitations, irregular heart rhythm, edema or syncope Resp: Denies: dyspnea, productive cough or non-productive cough GI: Reports: abdominal pain, constipation, bloating, GI cramping and change in bowel habits; Denies: nausea, vomiting, hematemesis, coffee ground emesis, heartburn, diarrhea, belching, excessive flatus, fecal incontinence, change in stool character, hematochezia or melena : Denies: flank pain, difficulty voiding, dysuria, urinary frequency, urinary urgency or hematuria Skin/Breast: Denies: rash or pruritus PFS ED PFSH: Medical History (Updated 06/25/22 @ 11:19 by BENI Rivera) 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 Has tried therapy in the past. Currently not on any medication or therapy Chronic left lumbar radiculopathy T12: Mild anterior compression deformity. Mixed increased and decreased signal intensity along the superior endplate without retropulsion. No marrow edema into the posterior elements. No contact on the cord. Mild straightening of the normal lumbar lordosis. No lumbar spine fracture. Benign hemangioma in L3. Mild disc desiccation at L4-5. Conus terminates normally at L1-2 disc level. L1-L2: Normal. L2-L3: Normal. L3-L4: Mild facet and ligamentum flavum hypertrophy with no stenosis. L4-L5: Broad-based shallow central disc protrusion with annular fissure. Broad-based protrusion is abutting the L5 nerve roots bilaterally, greatest on the RIGHT. Significant compression of the RIGHT L5 nerve root. Small amount of fluid in the facet joints. Mild central stenosis. L5-S1: Mild annular disc bulging without stenosis. Small amount of fluid in the facet joints. Paravertebral soft tissues are negative. Essential (primary) hypertension No pertinent past medical history Denies diabetes, asthma, hypertension, seizures, DVT/PE PCP: LYNDA Gatica Surgical History History of appendectomy 05/1998--open appendectomy at the age of 12 History of laparoscopy 07/05/2015---Diagnostic laparoscopy, hysteroscopy and D&C done for chronic pelvic pain/dyspareunia by Dr. Shelton at [facility]. --> Hysteroscopy showed no abnormalities of the endometrium and bilateral ostia noted. Pathology of the D&C showed disordered proliferation with stromal collapse. Diagnostic laparoscopy showed minimal filmy adhesions in the right middle quadrant of the bowel to the sidewall. No other dictations were noted in the pelvis, no signs of endometriosis, normal tubes and ovaries bilaterally, normal uterus, dilated uterine vessels. History of orthopedic surgery (~2002) Left shoulder surgery S/P dilation and curettage 05/14/2012--incomplete with hemorrhage. Performed by Dr. Goldstein at [facility] in [place], [place] S/P LEEP 12/2007---LEEP done for cervical abnormality in [facility] [place]. These records were requested and reviewed. 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 She denied underwent a cone biopsy. Pathology was not obtained.(scanned) Status post laparoscopy 02/19/2006---Diagnostic laparoscopy, hysteroscopy done for chronic pelvic pain and severe dysmenorrhea by Dr. Green at [facility] in [place]. --Operative reports have been received and reviewed and a hysteroscopy, diagnostic laparoscopy was performed. At time of laparoscopy there were filmy adhesions in the right paracolic gutter however no pelvic adhesions, endometriosis or gross abnormalities were noted, hysteroscopy done showed no intracavitary abnormalities either.(Operative report has been scanned-all scripts.) Family History Mother Hypertension Thyroid disease Breast cancer diagnosed in her late 40s Diabetes Father Hypertension Diabetes Sister Hypertension Heart disease Grandmother Diabetes paternal Grandfather Diabetes maternal Denies family history of Colon cancer Ovarian cancer Hyperlipidemia Uterine cancer Stroke Social History Smoking and tobacco status: never smoked Second hand smoke exposure: No Smoking risk assessment/counseling performed?: No Alcohol intake: never Desire information about alcohol rehabilitation?: No Counseling given: No Desire information about substance/drug rehabilitation?: No Counseling given: No Adopted: No Caregiver/support person: No Lives independently: Yes Household members: spouse Housing: House Marital status: Number of children: 5 service: No Current occupational status: employed 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[employer] [place] Pets and animals: Yes History of recent travel: No Current gender identity: Female Physical Exam Const: GENERAL APPEARANCE: cooperative and comfortable ORIENTATION/CONSCIOUSNESS: Yes awake, Yes oriented to person, Yes oriented to place and Yes oriented to time HENMT: COMMON NORMALS: normocephalic, atraumatic and hearing grossly normal bilaterally HEAD & SCALP: normocephalic and atraumatic Resp: COMMON NORMALS: normal respiratory effort, No retractions, No use of accessory muscles and clear to auscultation bilaterally AUSCULTATION: clear to auscultation bilaterally Cardio: COMMON NORMALS: regular rate, regular rhythm and No murmurs present (Cardio) RATE: regular rate RHYTHM: regular rhythm GI: COMMON NORMALS: No hepatosplenomegaly present AUSCULTATION: Yes normoactive bowel sounds PALPATION: Yes Tenderness to palpation present (GI) (Diffuse nonspecific no peritoneal signs), No Guarding due to palpation present (GI) and Yes No hepatosplenomegaly present Extremity: COMMON NORMALS: normal to inspection, capillary refill normal, no clubbing, cyanosis or edema, no calf tenderness and no pedal edema Neuro: SENSORIUM/ORIENTATION: Yes oriented to person, Yes oriented to place and Yes oriented to time Skin: COMMON NORMALS: no rashes or lesions noted GENERAL SKIN EXAM: no rashes or lesions noted Course Vital Signs: Vital signs: Vital Signs Temperature 98.5 F 06/17/22 14:16 Pulse Rate 102 H 06/17/22 14:16 Respiratory Rate 16 06/17/22 18:23 Blood Pressure 153/83 06/17/22 14:16 Pulse Oximetry 99 06/17/22 14:16 Oxygen Delivery Me thod 06/17/22 14:16 MDM - Abdominal Pain Medical Decision Making Overlying foreign body on the film. Suspect patient has constipation no acute abdomen on exam discharge home milk of magnesia or magnesium citrate for relief of immediate symptoms. Recommend MiraLAX regularly for prevention in the future Medical Records I reviewed the patient's medical records. Lab Data I reviewed the patient's lab results. : 06/17/22 15:00 06/17/22 15:00 Labs/Radiology: Radiology Impressions Chest/Abdomen X-ray 06/17/22 14:47 IMPRESSION: High-density object projecting in the epigastric/periumbilical region as described. No acute findings otherwise. Laboratory Results WBC 7.7 10^3/uL (4.0-10.0) 06/17/22 15:00 RBC 5.07 10^6/uL (4.1-5.3) 06/17/22 15:00 Hgb 15.6 g/dL (11.5-15.3) H 06/17/22 15:00 Hct 46.9 % (37.0-47.0) 06/17/22 15:00 MCV 92.5 fl (81-99) 06/17/22 15:00 MCH 30.8 pg (28.0-34.0) 06/17/22 15:00 MCHC 33.3 g/dL (30.0-36.0) 06/17/22 15:00 RDW 13.4 % (12.1-15.1) 06/17/22 15:00 Plt Count 366 10^3/cmm (130-400) 06/17/22 15:00 MPV 10.3 fL (7.4-10.4) 06/17/22 15:00 Neut % (Auto) 66.6 % 06/17/22 15:00 Lymph % (Auto) 21.8 % 06/17/22 15:00 [place] % (Auto) 7.5 % 06/17/22 15:00 Eos % (Auto) 1.7 % 06/17/22 15:00 Baso % (Auto) 0.7 % 06/17/22 15:00 Neut # (Auto) 5.12 10^3/uL (1.8-7.7) 06/17/22 15:00 Lymph # (Auto) 1.7 10^3/uL (0.8-4.8) 06/17/22 15:00 [place] # (Auto) 0.6 10^3/uL (0.2-0.9) 06/17/22 15:00 Eos # (Auto) 0.1 10^3/uL (0.0-0.8) 06/17/22 15:00 Baso # (Auto) 0.1 10^3/uL (0.0-0.1) 06/17/22 15:00 Nucleated RBC % (auto) 0 % 06/17/22 15:00 Nucleated RBCs # 0.0 /100WBC 06/17/22 15:00 Sodium 138 mmol/L (136-145) 06/17/22 15:00 Potassium 3.9 mmol/L (3.5-5.1) 06/17/22 15:00 Chloride 102 mmol/L (98-107) 06/17/22 15:00 Carbon Dioxide 26 mmol/L (22-29) 06/17/22 15:00 Anion Gap 13.9 (5-19) 06/17/22 15:00 BUN 8 mg/dL (6-20) 06/17/22 15:00 Creatinine 0.6 mg/dL (0.5-0.9) 06/17/22 15:00 GFR Calculation 114.4 mL/min (90-130) 06/17/22 15:00 Glucose 89 mg/dL (65-115) 06/17/22 15:00 Calculated Osmolality 284 mOsm/kg (285-295) L 06/17/22 15:00 Calcium 9.3 mg/dL (8.5-10.5) 06/17/22 15:00 Total Bilirubin 0.5 mg/dL (0.15-1.2) 06/17/22 15:00 AST 32 U/L (0-32) 06/17/22 15:00 ALT 47 U/L (0-33) H 06/17/22 15:00 Alkaline Phosphatase 76 U/L (35-105) 06/17/22 15:00 Total Protein 7.6 g/dL (6.6-8.7) 06/17/22 15:00 Albumin 4.7 g/dL (3.5-5.2) 06/17/22 15:00 Globulin 2.9 g/dL (1.3-4.6) 06/17/22 15:00 Discharge Plan Discharge Patient Disposition: Home Clinical Impression: Constipation Condition: Stable Prescriptions: No Action Nexplanon 68 mg implant 1 implant subdermal .every 3 years Qty: 1 0RF citalopram 40 mg tablet 40 mg PO BEDTIME metoprolol succinate 50 mg tablet extended release 24 hr 50 mg PO BEDTIME hydrocodone-acetaminophen 7.5-325 mg tablet 1 tab PO Q8H PRN (Reason: pain) Qty: 14 0RF hyoscyamine sulfate [Anaspaz] 0.125 mg Tablet,Disintegrating 0.125 mg PO Q6H PRN (Reason: Cramping) Qty: 30 0RF Tylenol Ex Str Rapid Release 500 mg Tablet 1,000 mg PO Q6H PRN (Reason: Pain) ibuprofen 200 mg Tablet 400 mg PO Q6H PRN (Reason: Pain) CoQ-10 100 mg Capsule 100 mg PO BID Magnesium Gummies 2 cap PO BEDTIME Discharge Orders: Discharge ED (Routine); Ordered 06/17/22 Ordered By: Geoffrey Gil Referrals: Polo Nagy, [facility] OPERATOR-[facility] [Primary Care Provider] - Discharge Diet: Clear Liquid Discharge Activity: Increase activity as tolerated Patient Instructions: Opioid Safety Activity Restrictions/Additional Instructions: Recommend warm clear liquid diet. Use lactulose every 4 hours until desired result achieved. Coding Level of Care Code ED Case Hardener for Franklin Sanchez
[2022-06-17 15:30] LABS: Alanine Aminotransferase 47 U/L (0-33); Albumin Level 4.7 g/dL (3.5-5.2); Alkaline Phosphatase 76 U/L (35-105); Aspartate Amino Transferase 32 U/L (0-32); Blood Urea Nitrogen 8 mg/dL (6-20); Calcium 9.3 mg/dL (8.5-10.5); Carbon Dioxide 26 mmol/L (22-29); Chloride 102 mmol/L (98-107); Globulin 2.9 g/dL (1.3-4.6); Glomerular Filtration Rate 114.4 mL/min (90-130); Glucose 89 mg/dL (65-115); Osmolality Calculated 284 mOsm/kg (285-295); Sodium 138 mmol/L (136-145); Total Bilirubin 0.5 mg/dL (0.15-1.2); Total Protein 7.6 g/dL (6.6-8.7)
[2022-06-17 15:39] LABS: Anion Gap 13.9 (5-19); Potassium 3.9 mmol/L (3.5-5.1)
[2022-06-17 18:23] VITALS: RESP 16
== END 2022-06-17 18:26 | disposition home or self-care (01) ==
PROVIDERS: Emergency Provider Family Medicine; PCP Nurse Practitioner
DX: K59.00 Constipation, unspecified (principal); I10 Essential (primary) hypertension
CPT/HCPCS: 74022; 80053; 85025; 99284

== ENCOUNTER → 2022-06-25 11:17 | Outpatient (BNVA) | payer MEDICAID, SELFPAY | PROVIDERS: PCP Nurse Practitioner; Visit Provider Nurse Practitioner | DX: R10.84 Generalized abdominal pain (principal); K57.30 Diverticulosis of large intestine without perforation or abscess without bleeding; E55.9 Vitamin D deficiency, unspecified; I10 Essential (primary) hypertension | CPT/HCPCS: 80053; 82306; 82607; 84443; 85025 ==

== ENCOUNTER 2022-09-19 18:12 | Emergency (ER) | payer MEDICAID, SELFPAY ==
[2022-09-19 18:39] VITALS: BP 147/102; PULSE 82; RESP 16; TEMP 36.8; O2SAT 98
[2022-09-19 18:49] LABS: Add Urine Microscopic? NO; Charge for UA Resulting for Rev
[2022-09-19 18:55] LABS: Bilirubin Urine Neg (Negative); Blood Urine Neg (Negative); Glucose Urine UA Norm (Normal); Ketones Urine Negative (Negative); Leukocyte Esterase Urine Negative (Negative); Nitrate Urine Negative (Negative); Protein Urine Neg (Negative); Urine Appearance Clear (CLEAR); Urine Color Yellow (Yellow); Urobilinogen Urine Neg (Negative); pH Urine 5 (5-7)
[2022-09-19 19:41] LABS: Basophils # 0.1 10^3/uL (0.0-0.1); Eosinophils # 0.2 10^3/uL (0.0-0.8); Eosinophils % 2.7 %; Hematocrit 47.4 % (37.0-47.0); Hemoglobin 15.7 g/dL (11.5-15.3); Lymphocytes # 1.5 10^3/uL (0.8-4.8); Lymphocytes % 24.8 %; Mean Corpuscular HGB Conc 33.1 g/dL (30.0-36.0); Mean Corpuscular Hemoglobin 30.5 pg (28.0-34.0); Monocytes # 0.7 10^3/uL (0.2-0.9); Monocytes % 11.5 %; Neutrophils # 3.56 10^3/uL (1.8-7.7); Neutrophils % 59.2 %; Nucleated Red Blood Cells % 0 %; Platelet Count 216 10^3/cmm (130-400); Red Blood Count 5.15 10^6/uL (4.1-5.3); Red Cell Distribution Width 13.1 % (12.1-15.1)
[2022-09-19 19:54] LABS: HCG, Serum Qual Negative (Negative)
[2022-09-19 19:59] LABS: Alanine Aminotransferase 91 U/L (0-33); Albumin Level 4.3 g/dL (3.5-5.2); Alkaline Phosphatase 93 U/L (35-105); Aspartate Amino Transferase 51 U/L (0-32); Blood Urea Nitrogen 6 mg/dL (6-20); Calcium 9.6 mg/dL (8.5-10.5); Carbon Dioxide 27 mmol/L (22-29); Chloride 100 mmol/L (98-107); Globulin 3.6 g/dL (1.3-4.6); Glomerular Filtration Rate 82.1 mL/min (90-130); Glucose 82 mg/dL (65-115); Lipase 38 U/L (13-60); Osmolality Calculated 281 mOsm/kg (285-295); Sodium 137 mmol/L (136-145); Total Bilirubin 0.4 mg/dL (0.15-1.2); Total Protein 7.9 g/dL (6.6-8.7)
== END 2022-09-19 21:55 | disposition left against medical advice (07) ==
PROVIDERS: Emergency Medicine; Emergency Provider Family Medicine; PCP Nurse Practitioner
DX: Z53.21 Procedure and treatment not carried out due to patient leaving prior to being seen by health care provider (principal)
CPT/HCPCS: 36415; 80053; 81003; 83690; 84703; 85025

== ENCOUNTER 2022-09-20 09:27 | Emergency (ER) | payer MEDICAID, SELFPAY ==
[2022-09-20] VITALS (8 sets, daily range): BP systolic 125–140; BP diastolic 82–101; PULSE 89–111; RESP 14–16; TEMP 36.8; O2SAT 92–100; BMI 27.6
--- NOTE | 2022-09-20 10:06 | PC.NURSE ---
pt reports LLQ pain, believes it could be a diverticulitis flare up. Reports pain has been present since 08/18, bloating, and a fever controlled with Tylenol. lung sounds clear bilat. bowel sounds present. denies complaints.
--- NOTE | 2022-09-20 10:16 | CTR_ITS ---
PROCEDURE INFORMATION: Exam: CT Abdomen And Pelvis With Contrast Exam date and time: 09/20/2022 11:38 AM Age: 36 years old Clinical indication: Abdominal pain; Localized; Left lower quadrant (llq); Prior surgery; Surgery type: Appy; Additional info: Llq abdominal pain h/o diverticulitits TECHNIQUE: Imaging protocol: Computed tomography of the abdomen and pelvis with contrast. Axial, coronal and sagittal reformatted images were created and reviewed. Radiation optimization: All CT scans at this facility use at least one of these dose optimization techniques: automated exposure control; mA and/or kV adjustment per patient size (includes targeted exams where dose is matched to clinical indication); or iterative reconstruction. Contrast material: OMNI 350; Contrast volume: 100 ml; Contrast route: INTRAVENOUS (IV); COMPARISON: CT abdomen pelvis w con* [id number] 06/09/2022 9:10 PM RADIATION DOSE METRICS: Total DLP (mGy-cm): 603.83 FINDINGS: Liver: Mild hepatomegaly. Diffuse hepatic steatosis. Gallbladder and bile ducts: No radiodense gallstones. No biliary ductal dilatation. Pancreas: Unremarkable. Spleen: Unremarkable. Adrenal glands: Normal. No mass. Kidneys and ureters: Unchanged 4 mm low-density left renal lesion, too small to characterize. No radiodense calculi. No hydronephrosis. Stomach and bowel: Localized kinking of the sigmoid colon with associated mesenteric distortion and mild localized upstream gaseous distention. No definite bowel wall thickening. No obstruction. Appendix: Status post appendectomy by history. Intraperitoneal space: No free fluid. No organized fluid collection. No free air. Vasculature: Unremarkable. No aneurysm. Lymph nodes: Small mesenteric lymph nodes, nonspecific in appearance. No pathologically enlarged lymph nodes. Urinary bladder: Mild circumferential urinary bladder wall thickening, likely secondary to underdistention. Reproductive: Unremarkable. Bones/joints: No acute osseous abnormality. Mild degenerative changes. Soft tissues: Unremarkable. CT/CT abdomen pelvis w con* [id number] IMPRESSION: 1. Localized kinking of the sigmoid colon with associated mesenteric distortion and mild localized upstream gaseous distention. No definite bowel wall thickening. No obstruction. Findings may be secondary to internal hernia without evidence of obstruction at this time. Clinical correlation and follow-up is suggested. 2. Additional findings, as above.
[2022-09-20 10:23] LABS: Basophils % 0.7 %; Eosinophils # 0.2 10^3/uL (0.0-0.8); Eosinophils % 2.8 %; Hematocrit 44.3 % (37.0-47.0); Hemoglobin 15.2 g/dL (11.5-15.3); Lymphocytes # 1.4 10^3/uL (0.8-4.8); Lymphocytes % 25.9 %; Mean Corpuscular HGB Conc 34.3 g/dL (30.0-36.0); Mean Corpuscular Hemoglobin 31.4 pg (28.0-34.0); Mean Corpuscular Volume 91.5 fl (81-99); Mean Platelet Volume 11.2 fL (7.4-10.4); Monocytes # 0.6 10^3/uL (0.2-0.9); Monocytes % 11.5 %; Neutrophils # 3.14 10^3/uL (1.8-7.7); Neutrophils % 58.5 %; Nucleated Red Blood Cells % 0 %; Platelet Count 211 10^3/cmm (130-400); Red Blood Count 4.84 10^6/uL (4.1-5.3); White Blood Count 5.4 10^3/uL (4.0-10.0)
--- NOTE | 2022-09-20 10:34 | W.ED.ABDPA2 ---
HPI - Abdominal Pain General: Chief Complaint: Abdominal Pain Stated Complaint: abd pain, body swelling Time Seen by Provider: 09/20/22 09:53 History of Present Illness: 36-year-old female presents emergency department chief complaint of progressive abdominal pain discomfort nausea vomiting has been ongoing for the last 3 days. Patient reports of a known history of diverticular disease and diverticulitis most recently diagnosed back in May patient presents to the ER with intermittent ongoing left-sided abdominal pain with rebound pain and on the opposite side. Associated Symptoms: Reports nausea and vomiting; Denies chills and fever(s) Review of Systems General: Reports: 10 or more systems reviewed and unremarkable except in HPI and below Const: Denies: fever(s), chills, fatigue or malaise Eyes: Denies: change in vision or blurry vision Card: Denies: chest pain or palpitations Resp: Denies: dyspnea or productive cough GI: Reports: abdominal pain, nausea and vomiting : Denies: flank pain Musc: Denies: extremity pain or extremity swelling Skin/Breast: Denies: rash or pruritus Neuro: Denies: headache(s) Psych: Denies: anxiety or depression Jayesh/Lymph: Denies: easy bleeding All/Imm: Denies: urticaria, throat swelling or facial swelling PFSH ED PFSH: Medical History 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 Has tried therapy in the past. Currently not on any medication or therapy Chronic left lumbar radiculopathy T12: Mild anterior compression deformity. Mixed increased and decreased signal intensity along the superior endplate without retropulsion. No marrow edema into the posterior elements. No contact on the cord. Mild straightening of the normal lumbar lordosis. No lumbar spine fracture. Benign hemangioma in L3. Mild disc desiccation at L4-5. Conus terminates normally at L1-2 disc level. L1-L2: Normal. L2-L3: Normal. L3-L4: Mild facet and ligamentum flavum hypertrophy with no stenosis. L4-L5: Broad-based shallow central disc protrusion with annular fissure. Broad-based protrusion is abutting the L5 nerve roots bilaterally, greatest on the RIGHT. Significant compression of the RIGHT L5 nerve root. Small amount of fluid in the facet joints. Mild central stenosis. L5-S1: Mild annular disc bulging without stenosis. Small amount of fluid in the facet joints. Paravertebral soft tissues are negative. Essential (primary) hypertension No pertinent past medical history Denies diabetes, asthma, hypertension, seizures, DVT/PE PCP: LYNDA Gatica Surgical History History of appendectomy 05/1998--open appendectomy at the age of 12 History of laparoscopy 07/05/2015---Diagnostic laparoscopy, hysteroscopy and D&C done for chronic pelvic pain[place]dyspareunia [place] [facility] [place] Hysteroscopy showed no abnormalities of the endometrium and bilateral ostia noted. Pathology of the D&C showed disordered proliferation with stromal collapse. Diagnostic laparoscopy showed minimal filmy adhesions in the right middle quadrant of the bowel to the sidewall. No other dictations were noted in the pelvis, no signs of endometriosis, normal tubes and ovaries bilaterally, normal uterus, dilated uterine vessels. History of orthopedic surgery (~2002) Left shoulder surgery S/P dilation and curettage 05/14/2012--incomplete with hemorrhage. Performed by Dr. Goldstein at [facility] in [place], [place] S/P LEEP 12/2007---LEEP done for cervical abnormality in [facility]. These records were requested and reviewed. 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 She denied underwent a cone biopsy. Pathology was not obtained.(scanned) Status post laparoscopy 02/19/2006---Diagnostic laparoscopy, hysteroscopy done for chronic pelvic pain and severe dysmenorrhea by Dr. Green at [facility]. --Operative reports have been received and reviewed and a hysteroscopy, diagnostic laparoscopy was performed. At time of laparoscopy there were filmy adhesions in the right paracolic gutter however no pelvic adhesions, endometriosis or gross abnormalities were noted, hysteroscopy done showed no intracavitary abnormalities either.(Operative report has been scanned-all scripts.) Family History Mother Hypertension Thyroid disease Breast cancer diagnosed in her late 40s Diabetes Father Hypertension Diabetes Sister Hypertension Heart disease Grandmother Diabetes paternal Grandfather Diabetes maternal Denies family history of Colon cancer Ovarian cancer Hyperlipidemia Uterine cancer Stroke Social History Smoking and tobacco status: never smoked Second hand smoke exposure: No Smoking risk assessment/counseling performed?: No Alcohol intake: never Desire information about alcohol rehabilitation?: No Counseling given: No Desire information about substance/drug rehabilitation?: No Counseling given: No Adopted: No Caregiver/support person: No Lives independently: Yes Household members: spouse Housing: House Marital status: Number of children: 5 service: No Current occupational status: employed Current occupation: [employer] of [employer] Pets and animals: Yes History of recent travel: No Current gender identity: Female Physical Exam Const: COMMON NORMALS: no acute distress, patient oriented x3 and healthy appearing HENMT: COMMON NORMALS: normocephalic and atraumatic HEAD & SCALP: normocephalic and atraumatic Eye: COMMON NORMALS: Equal, round and reactive pupils present and EOMs intact bilaterally PUPIL: Yes Equal, round and reactive pupils present Neck/C-Spine: COMMON NORMALS: full ROM, supple and no JVD Lymph: LYMPHATIC: no lymphadenopathy noted Chest: COMMONS NORMALS: normal inspection of the chest and normal palpation of entire chest wall Resp: COMMON NORMALS: normal respiratory effort, No retractions and clear to auscultation bilaterally EFFORT & INSPECTION: Yes able to speak in complete sentences and Yes symmetric chest movement AUSCULTATION: clear to auscultation bilaterally Cardio: COMMON NORMALS: no JVD, regular rate and regular rhythm RATE: regular rate RHYTHM: regular rhythm GI: OTHER: Moderate pain to palpation appreciated left lower quadrant with rebound tenderness noted on the right side the abdomen negative [place]'s point tenderness appreciated Rovsing sign noted no flank or back pain appreciated associate with the abdominal pain sharp in nature : COMMON NORMALS: Yes no CVA tenderness BLADDER/KIDNEY EXAM: Yes no CVA tenderness Back/Pelvis: COMMON NORMALS: no CVA tenderness Extremity: COMMON NORMALS: normal to inspection and full ROM Neuro: COMMON NORMALS: patient oriented x3, CN's II-XII intact bilaterally, moves all extremities and no focal motor deficits Psych: COMMON NORMALS: mental status grossly normal, Normal thought process present, cooperative and normal affect THOUGHT PROCESS: Normal thought process present Skin: COMMON NORMALS: no rashes or lesions noted GENERAL SKIN EXAM: no rashes or lesions noted Course Vital Signs: Vital signs: Vital Signs Temperature 98.2 F 09/20/22 09:42 Pulse Rate 99 09/20/22 16:02 Respiratory Rate 16 09/20/22 16:02 Blood Pressure 136/96 09/20/22 16:02 Pulse Oximetry 100 09/20/22 16:02 Oxygen Delivery Me thod 09/20/22 14:00 MDM - Abdominal Pain Medical Decision Making Due to the patient's symptoms and condition IV will be established labwork and imaging will be obtained medication provided for the patient associated symptoms we will continue to follow. There was concerns of the patient CT imaging of the abdomen pelvis with IV contrast that she had some form of a internal hernia I did discuss this the patient's case in which with the on-call surgeon Dr. Crowley that came down to the ER department to assess the patient recommends a rectal contrasted scan of the pelvis this came back reassuringly revealing generalized diverticulosis no diverticulitis or inflammatory changes per Dr. Crowley's request patient can further follow-up with GI in the office next 1 week for further assessment management the patient was started on additional Bentyl and Zofran and tramadol for her breakthrough pain control and symptoms. Patient was advised to return the interim if any of her symptoms persist or worsen otherwise advised to continue any soft fight high-fiber diet until otherwise noted. The patient was observed leaving the ER no obvious acute distress. Lab Data 09/20/22 10:16 09/20/22 10:16 Labs/Radiology: Radiology Impressions Abdomen/Pelvis CT 09/20/22 10:16 IMPRESSION: 1. Localized kinking of the sigmoid colon with associated mesenteric distortion and mild localized upstream gaseous distention. No definite bowel wall thickening. No obstruction. Findings may be secondary to internal hernia without evidence of obstruction at this time. Clinical correlation and follow-up is suggested. 2. Additional findings, as above. ADDENDUM: 09/20/22 [id number] ADDENDUM: Please note there are small nonobstructing bilateral renal calculi without hydronephrosis. Pelvis CT 09/20/22 13:41 IMPRESSION: No acute pathology. Laboratory Results WBC 5.4 10^3/uL (4.0-10.0) 09/20/22 10:16 RBC 4.84 10^6/uL (4.1-5.3) 09/20/22 10:16 Hgb 15.2 g/dL (11.5-15.3) 09/20/22 10:16 Hct 44.3 % (37.0-47.0) 09/20/22 10:16 MCV 91.5 fl (81-99) 09/20/22 10:16 MCH 31.4 pg (28.0-34.0) 09/20/22 10:16 MCHC 34.3 g/dL (30.0-36.0) 09/20/22 10:16 RDW 13.0 % (12.1-15.1) 09/20/22 10:16 Plt Count 211 10^3/cmm (130-400) 09/20/22 10:16 MPV 11.2 fL (7.4-10.4) H 09/20/22 10:16 Neut % (Auto) 58.5 % 09/20/22 10:16 Lymph % (Auto) 25.9 % 09/20/22 10:16 [place] % (Auto) 11.5 % 09/20/22 10:16 Eos % (Auto) 2.8 % 09/20/22 10:16 Baso % (Auto) 0.7 % 09/20/22 10:16 Neut # (Auto) 3.14 10^3/uL (1.8-7.7) 09/20/22 10:16 Lymph # (Auto) 1.4 10^3/uL (0.8-4.8) 09/20/22 10:16 [place] # (Auto) 0.6 10^3/uL (0.2-0.9) 09/20/22 10:16 Eos # (Auto) 0.2 10^3/uL (0.0-0.8) 09/20/22 10:16 Baso # (Auto) 0.0 10^3/uL (0.0-0.1) 09/20/22 10:16 Nucleated RBC % (auto) 0 % 09/20/22 10:16 Nucleated RBCs # 0.0 /100WBC 09/20/22 10:16 Sodium 135 mmol/L (136-145) L 09/20/22 10:16 Potassium 3.4 mmol/L (3.5-5.1) L 09/20/22 10:16 Chloride 99 mmol/L (98-107) 09/20/22 10:16 Carbon Dioxide 25 mmol/L (22-29) 09/20/22 10:16 Anion Gap 14.4 (5-19) 09/20/22 10:16 BUN 6 mg/dL (6-20) 09/20/22 10:16 Creatinine 0.7 mg/dL (0.5-0.9) 09/20/22 10:16 GFR Calculation 95.8 mL/min (90-130) 09/20/22 10:16 Glucose 96 mg/dL (65-115) 09/20/22 10:16 Calculated Osmolality 277 mOsm/kg (285-295) L 09/20/22 10:16 Lactate 2.8 mmol/L (0.5-2.2) H 09/20/22 10:52 Calcium 9.6 mg/dL (8.5-10.5) 09/20/22 10:16 Total Bilirubin 0.3 mg/dL (0.15-1.2) 09/20/22 10:16 AST 43 U/L (0-32) H 09/20/22 10:16 ALT 80 U/L (0-33) H 09/20/22 10:16 Alkaline Phosphatase 88 U/L (35-105) 09/20/22 10:16 C-Reactive Protein 6.7 mg/L (0.0-4.9) H 09/20/22 10:16 Total Protein 7.4 g/dL (6.6-8.7) 09/20/22 10:16 Albumin 4.2 g/dL (3.5-5.2) 09/20/22 10:16 Globulin 3.2 g/dL (1.3-4.6) 09/20/22 10:16 Lipase 42 U/L (13-60) 09/20/22 10:16 HCG, Qual Negative (Negative) 09/20/22 11:05 Urine Color Yellow (Yellow) 09/20/22 11:05 Urine Appearance Clear (CLEAR) 09/20/22 11:05 Urine pH 5 (5-7) 09/20/22 11:05 Ur Specific [place] 1.025 (1.005-1.030) 09/20/22 11:05 Urine Protein Neg (Negative) 09/20/22 11:05 Urine Glucose (UA) Norm (Normal) 09/20/22 11:05 Urine Ketones Negative (Negative) 09/20/22 11:05 Urine Blood Neg (Negative) 09/20/22 11:05 Urine Nitrate Negative (Negative) 09/20/22 11:05 Urine Bilirubin Neg (Negative) 09/20/22 11:05 Urine Urobilinogen Norm mg/dL (Negative) 09/20/22 11:05 Ur Leukocyte Esterase Negative (Negative) 09/20/22 11:05 Discharge Plan Discharge Patient Disposition: Home Clinical Impression: Left sided abdominal pain Condition: Stable Prescriptions: New Ultram 50 mg tablet 50 mg PO QID PRN (Reason: pain) Qty: 20 0RF dicyclomine 20 mg tablet 20 mg PO TID PRN (Reason: abdominal cramps) Qty: 20 0RF ondansetron 4 mg tablet,disintegrating 4 mg PO TID PRN (Reason: nausea and vomiting) Qty: 20 0RF No Action Nexplanon 68 mg implant 1 implant subdermal .every 3 years Qty: 1 0RF citalopram 40 mg tablet 40 mg PO BEDTIME Qty: 30 1RF metoprolol succinate 50 mg tablet extended release 24 hr 50 mg PO BEDTIME Qty: 30 1RF hydrocodone-acetaminophen 7.5-325 mg tablet 1 tab PO Q8H PRN (Reason: pain) Qty: 14 0RF hyoscyamine sulfate [Anaspaz] 0.125 mg Tablet,Disintegrating 0.125 mg PO Q6H PRN (Reason: Cramping) Qty: 30 0RF Tylenol Ex Str Rapid Release 500 mg Tablet 1,000 mg PO Q6H PRN (Reason: Pain) ibuprofen 200 mg Tablet 400 mg PO Q6H PRN (Reason: Pain) CoQ-10 100 mg Capsule 100 mg PO BID Magnesium Gummies 2 cap PO BEDTIME Discharge Orders: Discharge ED (Routine); Ordered 09/20/22 Ordered By: Delgado Gallegos Referrals: Polo Nagy, TAILOR'S AIDE-C [Primary Care Provider] - Torrie Crowley MD [Physician] - 1 week Patient Instructions: Abdominal Pain (ED), Opioid Safety Activity Restrictions/Additional Instructions: Please follow-up with the your primary care doctor the above surgeon as needed in the next 1 week, take medication as prescribed and please return the interim if any of your symptoms persist or worse. On your second study the original anomaly noted on the first CAT scan has since that is resolved no obvious internal intestinal obstruction or hernia is present. At this time until otherwise noted please adhere to a mechanical soft diet to reduce likelihood of additional pain or discomfort. 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
[2022-09-20 10:43] LABS: Slide Review Slide Review Perform
[2022-09-20 10:44] LABS: Alanine Aminotransferase 80 U/L (0-33); Albumin Level 4.2 g/dL (3.5-5.2); Alkaline Phosphatase 88 U/L (35-105); Anion Gap 14.4 (5-19); Aspartate Amino Transferase 43 U/L (0-32); Blood Urea Nitrogen 6 mg/dL (6-20); C Reactive Protein 6.7 mg/L (0.0-4.9); Calcium 9.6 mg/dL (8.5-10.5); Carbon Dioxide 25 mmol/L (22-29); Chloride 99 mmol/L (98-107); Globulin 3.2 g/dL (1.3-4.6); Glomerular Filtration Rate 95.8 mL/min (90-130); Glucose 96 mg/dL (65-115); Lipase 42 U/L (13-60); Osmolality Calculated 277 mOsm/kg (285-295); Potassium 3.4 mmol/L (3.5-5.1); Sodium 135 mmol/L (136-145); Total Bilirubin 0.3 mg/dL (0.15-1.2); Total Protein 7.4 g/dL (6.6-8.7)
[2022-09-20] MEDS: sodium chloride 0.9% 1,000 ML 999 ML IV (11:09)
[2022-09-20] MEDS: ondansetron 2 mg/ML SDV 2 mL 4 MG IVP (11:11)
[2022-09-20 11:13] LABS: Lactate (Lactic Acid level) 2.8 mmol/L (0.5-2.2)
[2022-09-20] MEDS: ketorolac 30 mg/mL INJ IVP (11:13)
[2022-09-20] MEDS: fentaNYL 50 mcg/mL INJ 2mL 77.6 MCG IVP (11:15)
[2022-09-20 11:23] LABS: Add Urine Microscopic? NO; Charge for UA Resulting for Rev
[2022-09-20 11:27] LABS: Bilirubin Urine Neg (Negative); Blood Urine Neg (Negative); Glucose Urine UA Norm (Normal); Ketones Urine Negative (Negative); Leukocyte Esterase Urine Negative (Negative); Nitrate Urine Negative (Negative); Protein Urine Neg (Negative); Specific Gravity, Urine 1.025 (1.005-1.030); Urine Appearance Clear (CLEAR); Urine Color Yellow (Yellow); Urobilinogen Urine Norm (Negative); pH Urine 5 (5-7)
[2022-09-20 11:28] LABS: HCG Qualitative Urine. Negative (Negative)
[2022-09-20] MEDS: iohexol 350 mg/mL 500 mL Btl (per mL) IV (11:43)
--- NOTE | 2022-09-20 13:41 | CTR_ITS ---
PROCEDURE INFORMATION: Exam: CT Pelvis Without Contrast Exam date and time: 09/20/2022 2:40 PM Age: 36 years old Clinical indication: Other: Sigmoid inflamation; Additional info: Sigmoid inflamation, need rectal contrast if available per surgeon request TECHNIQUE: Imaging protocol: Computed tomography of the pelvis without contrast. Axial, coronal and sagittal reformatted images were created and reviewed. Radiation optimization: All CT scans at this facility use at least one of these dose optimization techniques: automated exposure control; mA and/or kV adjustment per patient size (includes targeted exams where dose is matched to clinical indication); or iterative reconstruction. COMPARISON: CT abdomen pelvis w con* [id number] 09/20/2022 11:38 AM RADIATION DOSE METRICS: Total DLP (mGy-cm): 526.64 FINDINGS: Stomach and bowel: Several scattered colonic diverticula without evidence of diverticulitis. No bowel wall thickening. No obstruction. Appendix: Status post appendectomy by history. Intraperitoneal space: Unremarkable. No free air. No significant fluid collection. Lymph nodes: Unremarkable. No enlarged lymph nodes. Urinary bladder: Normal. No mass. Reproductive: Normal as visualized. Bones/joints: Unremarkable. No acute fracture. No dislocation. Soft tissues: Unremarkable. CT/CT pelvis wo con [id number] IMPRESSION: No acute pathology.
--- NOTE | 2022-09-20 14:22 | PM.CONSULT ---
Providers/Reason For Consult Consulting Physician/Specialty*: Torrie Crowley MD General Surgery Reason for Consult*: abdominal pain Primary Care Provider: BENI Rivera History of Present Illness History of Present Illness Camilla Vega is a 36 year old female who presents with abdominal pain, nausea, vomiting, and diarrhea for the past 4 days. She reports that symptoms are similar to those she encountered 4 months ago when she was diagnosed with diverticulitis. She was to have gastroenterology follow-up as well as gynecology follow-up for concomitant ovarian cyst and fibroids. Neither of those evaluations have yet taken place. She did have some bloody stool with the last episode but none in the past few days. She reports extraordinary bloating and heartburn with this episode. She has had chills and sweats. She has not been able to identify any particular pattern of exacerbating factors. Pain is localized to the left lower quadrant. She has had an appendectomy and laparoscopy. No prior bowel resection or history of gastric bypass. Her children have some sort of malabsorption problems. Her father also has gastrointestinal problems and has had frequent colonoscopy for colon polyps. There is no known family history of colon cancer. Review of Systems Const: Reports: chills Card: Denies: chest pain Resp: Denies: dyspnea GI: Reports: abdominal pain, nausea, vomiting, heartburn and bloating Jayesh/Lymph: Denies: easy bleeding Medications/Allergies Home Medications Medication Instructions Recorded Confirmed Last Taken Type etonogestrel 68 mg subdermal 1 implant subdermal .every 3 years 01/07/21 07/07/22 01/07/21 Rx implant (Nexplanon) #1 ea hydrocodone 7.5 mg-acetaminophen 1 tab PO Q8H PRN pain #14 tabs 06/06/22 07/07/22 06/09/22 Rx 325 mg tablet hyoscyamine sulfate 0.125 mg 0.125 mg PO Q6H PRN Cramping #30 06/12/22 07/07/22 06/15/22 Rx disintegrating tablet (Anaspaz) tabs Magnesium Gummies 2 cap PO BEDTIME 06/17/22 07/07/22 06/16/22 History acetaminophen 500 mg tablet 1,000 mg PO Q6H PRN Pain 06/17/22 07/07/22 Unknown History coenzyme Q10 100 mg capsule 100 mg PO BID 06/17/22 07/07/22 06/16/22 History (CoQ-10) ibuprofen 200 mg tablet 400 mg PO Q6H PRN Pain 06/17/22 07/07/22 Unknown History citalopram 40 mg tablet 40 mg PO BEDTIME #30 tabs 09/01/22 Unknown Rx metoprolol succinate 50 mg 50 mg PO BEDTIME #30 tabs 09/01/22 Unknown Rx tablet,extended release 24 hr dicyclomine 20 mg tablet 20 mg PO TID PRN abdominal cramps 09/20/22 Unknown Rx #20 tabs ondansetron 4 mg disintegrating 4 mg PO TID PRN nausea and 09/20/22 Unknown Rx tablet vomiting #20 tabs tramadol 50 mg tablet (Ultram) 50 mg PO QID PRN pain #20 tabs 09/20/22 Unknown Rx Allergies Allergy/AdvReac Type Severity Reaction Status Date / Time morphine Allergy pt states Verified 06/25/22 11:11 doesnt work for her fluconazole [From Diflucan] AdvReac Mild ADR-Nausea Verified 06/25/22 11:11 venlafaxine [From Effexor] AdvReac Mild causes Verified 06/25/22 11:11 seizures PFSH Acute PFSH: Medical History 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 Has tried therapy in the past. Currently not on any medication or therapy Chronic left lumbar radiculopathy T12: Mild anterior compression deformity. Mixed increased and decreased signal intensity along the superior endplate without retropulsion. No marrow edema into the posterior elements. No contact on the cord. Mild straightening of the normal lumbar lordosis. No lumbar spine fracture. Benign hemangioma in L3. Mild disc desiccation at L4-5. Conus terminates normally at L1-2 disc level. L1-L2: Normal. L2-L3: Normal. L3-L4: Mild facet and ligamentum flavum hypertrophy with no stenosis. L4-L5: Broad-based shallow central disc protrusion with annular fissure. Broad-based protrusion is abutting the L5 nerve roots bilaterally, greatest on the RIGHT. Significant compression of the RIGHT L5 nerve root. Small amount of fluid in the facet joints. Mild central stenosis. L5-S1: Mild annular disc bulging without stenosis. Small amount of fluid in the facet joints. Paravertebral soft tissues are negative. Essential (primary) hypertension No pertinent past medical history Denies diabetes, asthma, hypertension, seizures, DVT/PE PCP: LYNDA Gatica Surgical History History of appendectomy 05/1998--open appendectomy at the age of 12 History of laparoscopy 07/05/2015---Diagnostic laparoscopy, hysteroscopy and D&C done for chronic pelvic pain/dyspareunia by Dr. Shelton [place] [facility] [place]. --> Hysteroscopy showed no abnormalities of the endometrium and bilateral ostia noted. Pathology of the D&C showed disordered proliferation with stromal collapse. Diagnostic laparoscopy showed minimal filmy adhesions in the right middle quadrant of the bowel to the sidewall. No other dictations were noted in the pelvis, no signs of endometriosis, normal tubes and ovaries bilaterally, normal uterus, dilated uterine vessels. History of orthopedic surgery (~2002) Left shoulder surgery S/P dilation and curettage 05/14/2012--incomplete with hemorrhage. Performed by Dr. Goldstein at [facility] in [place], [place] S/P LEEP 12/2007---LEEP done for cervical abnormality in [facility]. These records were requested and reviewed. 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 She denied underwent a cone biopsy. Pathology was not obtained.(scanned) Status post laparoscopy 02/19/2006---Diagnostic laparoscopy, hysteroscopy done for chronic pelvic pain and severe dysmenorrhea by Dr. Green at [facility]. --Operative reports have been received and reviewed and a hysteroscopy, diagnostic laparoscopy was performed. At time of laparoscopy there were filmy adhesions in the right paracolic gutter however no pelvic adhesions, endometriosis or gross abnormalities were noted, hysteroscopy done showed no intracavitary abnormalities either.(Operative report has been scanned-all scripts.) Family History Mother Hypertension Thyroid disease Breast cancer diagnosed in her late 40s Diabetes Father Hypertension Diabetes Sister Hypertension Heart disease Grandmother Diabetes paternal Grandfather Diabetes maternal Denies family history of Colon cancer Ovarian cancer Hyperlipidemia Uterine cancer Stroke Social History Smoking and tobacco status: never smoked Second hand smoke exposure: No Smoking risk assessment/counseling performed?: No Alcohol intake: never Desire information about alcohol rehabilitation?: No Counseling given: No Desire information about substance/drug rehabilitation?: No Counseling given: No Adopted: No Caregiver/support person: No Lives independently: Yes Household members: spouse Housing: House Marital status: Number of children: 5 service: No Current occupational status: employed 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 [employer] Pets and animals: Yes History of recent travel: No Current gender identity: Female Vitals/I&O/Wt Last Vital Signs Temp 98.2 F 09/20/22 09:42 Pulse 93 09/20/22 13:00 Resp 14 09/20/22 09:42 BP 134/98 09/20/22 13:00 Pulse Ox 100 09/20/22 13:00 O2 Del Method 09/20/22 13:00 Weight last 48 hrs Weight 171 lb Physical Exam Const: COMMON NORMALS: average body habitus, healthy appearing and alert OTHER: Somewhat restless on gurney, frequently bouncing her leg HENMT: COMMON NORMALS: normocephalic and atraumatic HEAD & SCALP: normocephalic and atraumatic Eye: COMMON NORMALS: no scleral icterus Resp: COMMON NORMALS: normal respiratory effort and clear to auscultation bilaterally AUSCULTATION: clear to auscultation bilaterally Cardio: COMMON NORMALS: regular rate, regular rhythm, S1 normal heart sound present and S2 normal heart sound present RATE: regular rate RHYTHM: regular rhythm HEART SOUNDS: S1 normal heart sound present and S2 normal heart sound present GI: COMMON NORMALS: Soft to palpation INSPECTION: Yes abdominal distension and Yes scar (Right lower quadrant) PALPATION: Yes Soft to palpation, Yes Tenderness to palpation present (GI) (No percussion tenderness) Details: LLQ and Yes Guarding due to palpation present (GI) in the LLQ Extremity: COMMON NORMALS: no clubbing, cyanosis or edema Neuro: SENSORIUM/ORIENTATION: Yes alert Psych: COMMON NORMALS: mental status grossly normal and normal affect Skin: COMMON NORMALS: turgor normal and no jaundice GENERAL SKIN EXAM: turgor normal Data 09/20/22 10:16 09/20/22 10:16 CT Abd/Pel: Radiologist's impression: Radiology Impressions Abdomen/Pelvis CT 09/20/22 10:16 IMPRESSION: 1. Localized kinking of the sigmoid colon with associated mesenteric distortion and mild localized upstream gaseous distention. No definite bowel wall thickening. No obstruction. Findings may be secondary to internal hernia without evidence of obstruction at this time. Clinical correlation and follow-up is suggested. 2. Additional findings, as above. A&P Assessment and plan (1) Left sided abdominal pain: Localized left lower quadrant pain without imaging evidence of diverticulitis. No leukocytosis but she does have elevated CRP and lactate. Imaging shows sigmoid kinking with mesenteric distortion and no obstruction, with suggestion that this is an internal hernia. I reviewed the films and see no findings of sigmoid volvulus. There is no natural anatomic space in the pelvis where an internal hernia could occur. She had no pelvic adhesions at her last laparoscopy 7 years ago. No peritonitis or clear indication for surgical intervention at this time. Recommend evaluation with rectal contrast to rule out intraluminal mass, characterize sigmoid anatomy, and rule out obstruction. Coding Level of Care Code Acute [employer] for Chg Fwd Exam Comprehensive Diagnoses Left sided abdominal pain R10.9
[2022-09-20] MEDS: iohexol 350 mg/mL 500 mL Btl (per mL) PO (14:52)
[2022-09-20] MEDS: lidocaine 2% viscous 15 ML, aluminum-mag hydrox-simethicon 30 ML, sucralfate oral liq 1 GM PO (15:08)
== END 2022-09-20 16:03 | disposition home or self-care (01) ==
PROVIDERS: Emergency Provider Emergency Medicine; PCP Nurse Practitioner
DX: R10.9 Unspecified abdominal pain (principal); I10 Essential (primary) hypertension
CPT/HCPCS: 12345; 72192; 74177; 80053; 81003; 81025; 83605; 83690; 85025; 86140; 96374; 96375; 99285; J1885; J2405; J3010; J7030; Q9967

== ENCOUNTER 2022-10-19 17:42 | Emergency (ER) | payer MEDICAID, SELFPAY ==
[2022-10-19 17:56] VITALS: BP 131/88; PULSE 95; RESP 16; TEMP 36.8; O2SAT 96
--- NOTE | 2022-10-19 19:56 | W.ED.ABDPA2 ---
HPI - Abdominal Pain General: Chief Complaint: Abdominal Pain Stated Complaint: lower left abd pain Time Seen by Provider: 10/19/22 18:57 History of Present Illness: Ms. Vega is a 36-year-old lady with history of diverticulosis and diverticulitis presenting to the emergency department due to abdominal pain. She reports feeling mild symptoms last night however has since worsened throughout the day today. Notes left lower quadrant and suprapubic pain. Nausea without vomiting. Denies changes in bowel movements or urinary symptoms. No vaginal bleeding or discharge, patient has implanted control and therefore has not had a recent period. Intensity symptoms is moderate to severe. Course has worsened. She reports that this feels somewhat dissimilar to prior episodes. No other specific changes in health, exacerbating, or alleviating factors identified. Pertinent past history: diverticulitis and other Onset (ago): hour(s) Pain Consistency: constant Location: LLQ and Suprapubic Quality: cramping and aching Migration to: no migration Exacerbating factors: eating and movement Relieving factors: nothing Associated Symptoms: Reports nausea and other (Generalized malaise and weakness) Review of Systems General: Reports: 10 or more systems reviewed and unremarkable except in HPI and below GI: Reports: nausea and other (Generalized malaise and weakness) [facility] ED PFSH: Medical History 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 Has tried therapy in the past. Currently not on any medication or therapy Chronic left lumbar radiculopathy T12: Mild anterior compression deformity. Mixed increased and decreased signal intensity along the superior endplate without retropulsion. No marrow edema into the posterior elements. No contact on the cord. Mild straightening of the normal lumbar lordosis. No lumbar spine fracture. Benign hemangioma in L3. Mild disc desiccation at L4-5. Conus terminates normally at L1-2 disc level. L1-L2: Normal. L2-L3: Normal. L3-L4: Mild facet and ligamentum flavum hypertrophy with no stenosis. L4-L5: Broad-based shallow central disc protrusion with annular fissure. Broad-based protrusion is abutting the L5 nerve roots bilaterally, greatest on the RIGHT. Significant compression of the RIGHT L5 nerve root. Small amount of fluid in the facet joints. Mild central stenosis. L5-S1: Mild annular disc bulging without stenosis. Small amount of fluid in the facet joints. Paravertebral soft tissues are negative. Essential (primary) hypertension No pertinent past medical history Denies diabetes, asthma, hypertension, seizures, DVT/PE PCP: LYNDA Gatica Surgical History History of appendectomy 05/1998--open appendectomy at the age of 12 History of laparoscopy 07/05/2015---Diagnostic laparoscopy, hysteroscopy and D&C done for chronic pelvic pain/dyspareunia by Dr. Shelton at [facility]. --> Hysteroscopy showed no abnormalities of the endometrium and bilateral ostia noted. Pathology of the D&C showed disordered proliferation with stromal collapse. Diagnostic laparoscopy showed minimal filmy adhesions in the right middle quadrant of the bowel to the sidewall. No other dictations were noted in the pelvis, no signs of endometriosis, normal tubes and ovaries bilaterally, normal uterus, dilated uterine vessels. History of orthopedic surgery (~2002) Left shoulder surgery S/P dilation and curettage 05/14/2012--incomplete with hemorrhage. Performed by Dr. Goldstein at [facility] in [place], [place] S/P LEEP 12/2007---LEEP done for cervical abnormality in [facility]. These records were requested and reviewed. 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 She denied underwent a cone biopsy. Pathology was not obtained.(scanned) Status post laparoscopy 02/19/2006---Diagnostic laparoscopy, hysteroscopy done for chronic pelvic pain and severe dysmenorrhea by Dr. Green at [facility]. --Operative reports have been received and reviewed and a hysteroscopy, diagnostic laparoscopy was performed. At time of laparoscopy there were filmy adhesions in the right paracolic gutter however no pelvic adhesions, endometriosis or gross abnormalities were noted, hysteroscopy done showed no intracavitary abnormalities either.(Operative report has been scanned-all scripts.) Family History Mother Hypertension Thyroid disease Breast cancer diagnosed in her late 40s Diabetes Father Hypertension Diabetes Sister Hypertension Heart disease Grandmother Diabetes paternal Grandfather Diabetes maternal Denies family history of Colon cancer Ovarian cancer Hyperlipidemia Uterine cancer Stroke Social History Smoking and tobacco status: never smoked Second hand smoke exposure: No Smoking risk assessment/counseling performed?: No Alcohol intake: never Desire information about alcohol rehabilitation?: No Counseling given: No Desire information about substance/drug rehabilitation?: No Counseling given: No Adopted: No Caregiver/support person: No Lives independently: Yes Household members: spouse Housing: House Marital status: Number of children: 5 service: No Current occupational status: employed 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[employer] Pets and animals: Yes History of recent travel: No Current gender identity: Female Physical Exam Const: COMMON NORMALS: alert GENERAL APPEARANCE: cooperative and well developed HENMT: COMMON NORMALS: normocephalic and atraumatic HEAD & SCALP: normocephalic and atraumatic Eye: COMMON NORMALS: conjunctivae normal CONJUNCTIVA: Yes conjunctivae normal SCLERA: sclerae normal Neck/C-Spine: COMMON NORMALS: supple GENERAL: Yes trachea midline Resp: COMMON NORMALS: clear to auscultation bilaterally EFFORT & INSPECTION: Yes able to speak in complete sentences AUSCULTATION: clear to auscultation bilaterally Cardio: COMMON NORMALS: regular rate and regular rhythm RATE: regular rate RHYTHM: regular rhythm GI: COMMON NORMALS: Soft to palpation PALPATION: Yes Soft to palpation, Yes Tenderness to palpation present (GI) Details: LLQ, No Guarding due to palpation present (GI) and No Rigid due to palpation Extremity: GENERAL: Yes normal exam except as noted and No edema Neuro: COMMON NORMALS: moves all extremities SENSORIUM/ORIENTATION: Yes alert and No Orientation impaired Psych: COMMON NORMALS: mental status grossly normal and Normal thought process present THOUGHT PROCESS: Normal thought process present Course Vital Signs: Vital signs: Vital Signs Temperature 98.3 F 10/19/22 17:56 Pulse Rate 95 10/19/22 17:56 Respiratory Rate 16 10/19/22 17:56 Blood Pressure 163/115 10/19/22 22:15 Pulse Oximetry 96 10/19/22 22:15 Oxygen Delivery Me thod 10/19/22 22:15 MDM - Abdominal Pain Medical Decision Making 36-year-old lady with history of diverticulitis presenting with abdominal pain. Patient is nontoxic and there is no evidence of acute surgical abdomen. Exam as above. Labs with perhaps mild dehydration, transaminitis again noted. No evidence of UTI. Patient does report a history of concerns and ultrasound was performed. Possible hydrosalpinx was discussed with patient, no evidence of ovarian torsion. Patient does not have risk of partners or concern for STI exposure. Discussed case with CHANNEL SPECIALIST, patient appropriate for outpatient management. I discussed findings of laboratory studies and ultrasound with the patient. She was improved with IV fluids and analgesia. She is able to tolerate p.o. intake. Given physical exam findings and provided clinical history as well as further discussion patient is comfortable foregoing CT imaging this time which I believe is reasonable as empiric treatment for concern for infection which will also provide some coverage for GI. Follow-up instructions given as well as return precautions. The results of ED evaluation were discussed with the patient including prescriptions and/or symptomatic cares (if applicable) including appropriate and responsible use, followup plan, and return precautions. The patient verbalized understanding and felt safe for discharge. Medical Records I reviewed the patient's medical records. Lab Data I reviewed the patient's lab results. 10/19/22 20:25 10/19/22 20:25 Labs/Radiology: Radiology Impressions Pelvic/Transvag US 10/19/22 20:44 IMPRESSION: 1. Presumed uterine fibroids, details above. 2. Possible left hydrosalpinx, see above discussion. 3. Essentially unremarkable sonographic appearance of the ovaries. 4. Blood flow detected in each ovary. 5. Other details discussed above. Laboratory Results WBC 10.0 10^3/uL (4.0-10.0) 10/19/22 20:25 RBC 5.06 10^6/uL (4.1-5.3) 10/19/22 20:25 Hgb 15.7 g/dL (11.5-15.3) H 10/19/22 20:25 Hct 47.7 % (37.0-47.0) H 10/19/22 20:25 MCV 94.3 fl (81-99) 10/19/22 20:25 MCH 31.0 pg (28.0-34.0) 10/19/22 20:25 MCHC 32.9 g/dL (30.0-36.0) 10/19/22 20:25 RDW 13.5 % (12.1-15.1) 10/19/22 20:25 Plt Count 216 10^3/cmm (130-400) 10/19/22 20:25 MPV 11.0 fL (7.4-10.4) H 10/19/22 20:25 Neut % (Auto) 58.2 % 10/19/22 20:25 Lymph % (Auto) 25.1 % 10/19/22 20:25 Petroleum % (Auto) 11.6 % 10/19/22 20:25 Eos % (Auto) 3.5 % 10/19/22 20:25 Baso % (Auto) 0.9 % 10/19/22 20:25 Neut # (Auto) 5.83 10^3/uL (1.8-7.7) 10/19/22 20:25 Lymph # (Auto) 2.5 10^3/uL (0.8-4.8) 10/19/22 20:25 Petroleum # (Auto) 1.2 10^3/uL (0.2-0.9) H 10/19/22 20:25 Eos # (Auto) 0.4 10^3/uL (0.0-0.8) 10/19/22 20:25 Baso # (Auto) 0.1 10^3/uL (0.0-0.1) 10/19/22 20:25 Nucleated RBC % (auto) 0 % 10/19/22 20:25 Nucleated RBCs # 0.0 /100WBC 10/19/22 20:25 Sodium 134 mmol/L (136-145) L 10/19/22 20:25 Potassium 4.1 mmol/L (3.5-5.1) 10/19/22 20:25 Chloride 102 mmol/L (98-107) 10/19/22 20:25 Carbon Dioxide 22 mmol/L (22-29) 10/19/22 20:25 Anion Gap 14.1 (5-19) 10/19/22 20:25 BUN 6 mg/dL (6-20) 10/19/22 20:25 Creatinine 0.5 mg/dL (0.5-0.9) 10/19/22 20:25 GFR Calculation 141.2 mL/min (90-130) H 10/19/22 20:25 Glucose 103 mg/dL (65-115) 10/19/22 20:25 Calculated Osmolality 276 mOsm/kg (285-295) L 10/19/22 20:25 Calcium 9.3 mg/dL (8.5-10.5) 10/19/22 20:25 Total Bilirubin 0.4 mg/dL (0.15-1.2) 10/19/22 20:25 AST 36 U/L (0-32) H 10/19/22 20:25 ALT 84 U/L (0-33) H 10/19/22 20:25 Alkaline Phosphatase 79 U/L (35-105) 10/19/22 20:25 Total Protein 7.1 g/dL (6.6-8.7) 10/19/22 20:25 Albumin 4.1 g/dL (3.5-5.2) 10/19/22 20:25 Globulin 3.0 g/dL (1.3-4.6) 10/19/22 20:25 Lipase 34 U/L (13-60) 10/19/22 20:25 HCG, Qual Negative (Negative) 10/19/22 21:17 Urine Color Yellow (Yellow) 10/19/22 21:17 Urine Appearance Clear (CLEAR) 10/19/22 21:17 Urine pH 6.5 (5-7) 10/19/22 21:17 Ur Specific [place] 1.015 (1.005-1.030) 10/19/22 21:17 Urine Protein Neg (Negative) 10/19/22 21:17 Urine Glucose (UA) Norm (Normal) 10/19/22 21:17 Urine Ketones Negative (Negative) 10/19/22 21:17 Urine Blood Neg (Negative) 10/19/22 21:17 Urine Nitrate Negative (Negative) 10/19/22 21:17 Urine Bilirubin Neg (Negative) 10/19/22 21:17 Urine Urobilinogen Norm mg/dL (Negative) 10/19/22 21:17 Ur Leukocyte Esterase Negative (Negative) 10/19/22 21:17 Discharge Plan Discharge Patient Disposition: Home Clinical Impression: Abdominal pain, Hydrosalpinx, Transaminitis Condition: Stable Prescriptions: New ondansetron 4 mg tablet,disintegrating 4 mg PO Q8H PRN (Reason: nausea and vomiting) Qty: 15 0RF oxycodone 5 mg tablet 5 mg PO Q4H PRN (Reason: pain) Qty: 10 0RF doxycycline hyclate 100 mg capsule 100 mg PO BID 14 Days Qty: 28 0RF metronidazole 500 mg tablet 500 mg PO BID 14 Days Qty: 28 0RF No Action Nexplanon 68 mg implant 1 implant subdermal .every 3 years Qty: 1 0RF citalopram 40 mg tablet 40 mg PO BEDTIME Qty: 30 1RF metoprolol succinate 50 mg tablet extended release 24 hr 50 mg PO BEDTIME Qty: 30 1RF hydrocodone-acetaminophen 7.5-325 mg tablet 1 tab PO Q8H PRN (Reason: pain) Qty: 14 0RF Ultram 50 mg tablet 50 mg PO QID PRN (Reason: pain) Qty: 20 0RF dicyclomine 20 mg tablet 20 mg PO TID PRN (Reason: abdominal cramps) Qty: 20 0RF ondansetron 4 mg tablet,disintegrating 4 mg PO TID PRN (Reason: nausea and vomiting) Qty: 20 0RF hyoscyamine sulfate [Anaspaz] 0.125 mg Tablet,Disintegrating 0.125 mg PO Q6H PRN (Reason: Cramping) Qty: 30 0RF Tylenol Ex Str Rapid Release 500 mg Tablet 1,000 mg PO Q6H PRN (Reason: Pain) ibuprofen 200 mg Tablet 400 mg PO Q6H PRN (Reason: Pain) CoQ-10 100 mg Capsule 100 mg PO BID Magnesium Gummies 2 cap PO BEDTIME Discharge Orders: Discharge ED (Routine); Ordered 10/19/22 Ordered By: Farhat Childress Referrals: Polo Nagy, [employer] [Primary Care Provider] - Discharge Diet: Advance as tolerated and Clear Liquid Discharge Activity: Increase activity as tolerated Patient Instructions: Abdominal Pain (ED), Opioid Safety Activity Restrictions/Additional Instructions: Thank you for visiting the emergency department. You were seen and evaluated for abdominal pain. The exact cause of your symptoms is unclear however, as discussed, you do have possible hydrosalpinx which may be due to infection of the fallopian tube. This will be treated with antibiotics. This requires follow-up, please follow-up with your advertising sales associate for reevaluation. You may use [id number] medications such as acetaminophen and ibuprofen for pain however please do not exceed the daily recommended dosage as listed on the packaging and please keep in mind that many namebrand medications contain the same active ingredients. Please avoid these medications if previously instructed to do so by another physician due to other underlying medical condition. Please return to the emergency department for worsening symptoms or anything else that you are concerned about a feel needs emergency department evaluation. Coding Level of Care Code ED J2Ee Programmer for Franklin Sanchez Exam Comprehensive
[2022-10-19 20:33] LABS: Basophils # 0.1 10^3/uL (0.0-0.1); Basophils % 0.9 %; Eosinophils # 0.4 10^3/uL (0.0-0.8); Eosinophils % 3.5 %; Hematocrit 47.7 % (37.0-47.0); Hemoglobin 15.7 g/dL (11.5-15.3); Lymphocytes # 2.5 10^3/uL (0.8-4.8); Lymphocytes % 25.1 %; Mean Corpuscular HGB Conc 32.9 g/dL (30.0-36.0); Mean Corpuscular Volume 94.3 fl (81-99); Monocytes # 1.2 10^3/uL (0.2-0.9); Monocytes % 11.6 %; Neutrophils # 5.83 10^3/uL (1.8-7.7); Neutrophils % 58.2 %; Nucleated Red Blood Cells % 0 %; Platelet Count 216 10^3/cmm (130-400); Red Blood Count 5.06 10^6/uL (4.1-5.3); Red Cell Distribution Width 13.5 % (12.1-15.1)
--- NOTE | 2022-10-19 20:44 | USR_ITS ---
PROCEDURE INFORMATION: Exam: US Pelvis Complete, Transabdominal and US Pelvis, Transvaginal and US Duplex Artery and Vein, Ovaries, Complete Exam date and time: 10/19/2022 9:26 PM Age: 36 years old Clinical indication: Pelvic pain; Patient HX: Patient is on nexplanon and doesn't have cycles. . ; Additional info: Llq pain, HX cysts, eval torsion TECHNIQUE: Imaging protocol: Real-time complete transabdominal and transvaginal pelvic ultrasound with image documentation. Transvaginal imaging was used for better evaluation of the endometrium, adnexa, and/or cervix. Real-time duplex ultrasound scan of the arterial and venous flow of the ovaries with B-mode, color Doppler flow and spectral waveform analysis. Duplex exam was performed to evaluate for torsion and other vascular conditions. COMPARISON: US pelvic complete* [id number] 06/09/2022 8:28 PM FINDINGS: The uterus measures 6.5 cm in length. At least 2 presumed uterine fibroids identified. Anterior lesion measures 20 x 10 x 16 mm. Posterior lesion measures 13 x 8 x 12 mm. There is no intrauterine fluid. Endometrial thickness is 1.6 mm. There is no free pelvic fluid. The right ovary measures 31 x 21 x 31 mm, estimated volume 10.8 cc. The right ovary appears essentially unremarkable. The left ovary measures 36 x 19 x 31 mm, estimated volume 11.1 cc. The left ovary appears essentially unremarkable. Apparent nonvascular fluid-filled tubular structure seen in the left adnexal region, measuring 7-8 mm in diameter. While not specific, this might represent hydrosalpinx. Question if there are symptoms related to pelvic inflammatory disease. Ovarian blood flow was evaluated with color and spectral Doppler imaging. Arterial and venous blood flow detected within each ovary. The urinary bladder was not completely evaluated/imaged at this time. Endovaginal scanning provided better visualization/evaluation of the endometrium and ovaries/adnexal regions, as discussed above. US/US pelvic with transvaginal IMPRESSION: 1. Presumed uterine fibroids, details above. 2. Possible left hydrosalpinx, see above discussion. 3. Essentially unremarkable sonographic appearance of the ovaries. 4. Blood flow detected in each ovary. 5. Other details discussed above.
[2022-10-19] MEDS: sodium chloride 0.9% 1,000 ML 999 ML IV (20:51)
[2022-10-19] MEDS: fentaNYL 50 mcg/mL INJ 2mL IVP (20:51)
[2022-10-19 20:54] VITALS: BP 163/115; O2SAT 95
[2022-10-19 20:54] LABS: Alanine Aminotransferase 84 U/L (0-33); Albumin Level 4.1 g/dL (3.5-5.2); Alkaline Phosphatase 79 U/L (35-105); Aspartate Amino Transferase 36 U/L (0-32); Blood Urea Nitrogen 6 mg/dL (6-20); Calcium 9.3 mg/dL (8.5-10.5); Carbon Dioxide 22 mmol/L (22-29); Chloride 102 mmol/L (98-107); Glomerular Filtration Rate 141.2 mL/min (90-130); Glucose 103 mg/dL (65-115); Lipase 34 U/L (13-60); Osmolality Calculated 276 mOsm/kg (285-295); Sodium 134 mmol/L (136-145); Total Bilirubin 0.4 mg/dL (0.15-1.2); Total Protein 7.1 g/dL (6.6-8.7)
[2022-10-19 21:02] LABS: Anion Gap 14.1 (5-19); Potassium 4.1 mmol/L (3.5-5.1)
[2022-10-19 21:27] LABS: Add Urine Microscopic? NO; Charge for UA Resulting for Rev
[2022-10-19 21:29] LABS: Bilirubin Urine Neg (Negative); Blood Urine Neg (Negative); Glucose Urine UA Norm (Normal); Ketones Urine Negative (Negative); Leukocyte Esterase Urine Negative (Negative); Nitrate Urine Negative (Negative); Protein Urine Neg (Negative); Specific Gravity, Urine 1.015 (1.005-1.030); Urine Appearance Clear (CLEAR); Urine Color Yellow (Yellow); Urobilinogen Urine Norm (Negative); pH Urine 6.5 (5-7)
[2022-10-19 21:37] LABS: HCG Qualitative Urine. Negative (Negative)
[2022-10-19 22:15] VITALS: BP 163/115; O2SAT 96
[2022-10-19] MEDS: cefTRIAXone 1,000 MG, lidocaine 1% 2.1 ML in SYRINGE 1 EACH 1 MG IM (23:41)
[2022-10-19] MEDS: metroNIDAZOLE 500 MG Tablet PO (23:44)
[2022-10-19] MEDS: doxycycline 100 mg Tablet PO (23:44)
[2022-10-19] MEDS: oxyCODONE 5 mg IR Tab/Cap PO (23:44)
== END 2022-10-19 23:47 | disposition home or self-care (01) ==
PROVIDERS: Emergency Provider Emergency Medicine; PCP Nurse Practitioner
DX: N70.11 Chronic salpingitis (principal); R74.01 Elevation of levels of liver transaminase levels; R10.32 Left lower quadrant pain; I10 Essential (primary) hypertension
CPT/HCPCS: 36415; 76830; 76856; 80053; 81003; 81025; 83690; 85025; 87210; 96361; 96372; 96374; 99285; J0696; J3010; J7030

== ENCOUNTER 2022-10-28 10:39 | Emergency (ER) | payer MEDICAID, SELFPAY ==
[2022-10-28 10:47] VITALS: BP 122/94; PULSE 57; RESP 16; TEMP 36.7; O2SAT 97; BMI 28.4
--- NOTE | 2022-10-28 11:14 | W.ED.ABDPA2 ---
HPI - Abdominal Pain General: Chief Complaint: Abdominal Pain Stated Complaint: left pain in the abd Time Seen by Provider: 10/28/22 11:13 Source: patient Mode of arrival: ambulatory History of Present Illness: 37-year-old female presents emergency room with complaint of abdominal pain. She states she has had it for the last 10 days she is tried various antibiotics pain medications. She has pain in the left lower quadrant she reports it is nearly chronic but then has waves and's bursts of pain that is significantly worse she denies any dysuria urgency or frequency no nausea or vomiting. No hematochezia melena hematemesis or coffee-ground emesis. MD elicited complaint: abdominal pain Onset (ago): day(s) Pain Consistency: constant Location: Diffuse Severity: moderate Quality: cramping Radiation: none Exacerbating factors: nothing Relieving factors: nothing Associated Symptoms: Reports anorexia, bloating, change in bowel habits, change in stool character, constipation, GI cramping and poor appetite; Denies belching, chills, coffee ground emesis, diarrhea, dyspepsia, dysuria, excessive flatus, fever(s), heartburn, hematochezia, hematuria, hematemesis, fecal incontinence, loose stools, melena, nausea, syncope and vomiting Review of Systems Const: Denies: fever(s) or chills ENMT: Denies: throat pain, ear or mastoid pain, nasal discharge or nasal congestion Card: Denies: chest pain, palpitations, irregular heart rhythm or syncope Resp: Denies: dyspnea, productive cough or non-productive cough GI: Reports: abdominal pain, constipation, bloating, GI cramping, change in bowel habits and change in stool character; Denies: nausea, vomiting, hematemesis, coffee ground emesis, heartburn, diarrhea, belching, excessive flatus, fecal incontinence, hematochezia or melena : Denies: dysuria, urinary frequency, urinary urgency or hematuria Musc: Denies: neck pain or back pain Skin/Breast: Denies: rash or pruritus PFSH ED PFSH: Medical History 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 Has tried therapy in the past. Currently not on any medication or therapy Chronic left lumbar radiculopathy T12: Mild anterior compression deformity. Mixed increased and decreased signal intensity along the superior endplate without retropulsion. No marrow edema into the posterior elements. No contact on the cord. Mild straightening of the normal lumbar lordosis. No lumbar spine fracture. Benign hemangioma in L3. Mild disc desiccation at L4-5. Conus terminates normally at L1-2 disc level. L1-L2: Normal. L2-L3: Normal. L3-L4: Mild facet and ligamentum flavum hypertrophy with no stenosis. L4-L5: Broad-based shallow central disc protrusion with annular fissure. Broad-based protrusion is abutting the L5 nerve roots bilaterally, greatest on the RIGHT. Significant compression of the RIGHT L5 nerve root. Small amount of fluid in the facet joints. Mild central stenosis. L5-S1: Mild annular disc bulging without stenosis. Small amount of fluid in the facet joints. Paravertebral soft tissues are negative. Essential (primary) hypertension No pertinent past medical history Denies diabetes, asthma, hypertension, seizures, DVT/PE PCP: LYNDA Gatica Surgical History History of appendectomy 05/1998--open appendectomy at the age of 12 History of laparoscopy 07/05/2015---Diagnostic laparoscopy, hysteroscopy and D&C done for chronic pelvic pain/dyspareunia by Dr. Shelton at [facility] [place]. --> Hysteroscopy showed no abnormalities of the endometrium and bilateral ostia noted. Pathology of the D&C showed disordered proliferation with stromal collapse. Diagnostic laparoscopy showed minimal filmy adhesions in the right middle quadrant of the bowel to the sidewall. No other dictations were noted in the pelvis, no signs of endometriosis, normal tubes and ovaries bilaterally, normal uterus, dilated uterine vessels. History of orthopedic surgery (~2002) Left shoulder surgery S/P dilation and curettage 05/14/2012--incomplete with hemorrhage. Performed by Dr. Goldstein at [facility] in [place], [place] S/P LEEP 12/2007---[place] [facility] [place] were requested and reviewed. 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 She denied underwent a cone biopsy. Pathology was not obtained.(scanned) Status post laparoscopy 02/19/2006---Diagnostic laparoscopy, hysteroscopy done for chronic pelvic pain and severe dysmenorrhea by Dr. Green at [facility]. --Operative reports have been received and reviewed and a hysteroscopy, diagnostic laparoscopy was performed. At time of laparoscopy there were filmy adhesions in the right paracolic gutter however no pelvic adhesions, endometriosis or gross abnormalities were noted, hysteroscopy done showed no intracavitary abnormalities either.(Operative report has been scanned-all scripts.) Family History Mother Hypertension Thyroid disease Breast cancer diagnosed in her late 40s Diabetes Father Hypertension Diabetes Sister Hypertension Heart disease Grandmother Diabetes paternal Grandfather Diabetes maternal Denies family history of Colon cancer Ovarian cancer Hyperlipidemia Uterine cancer Stroke Social History Smoking and tobacco status: never smoked Second hand smoke exposure: No Smoking risk assessment/counseling performed?: No Alcohol intake: never Desire information about alcohol rehabilitation?: No Counseling given: No Desire information about substance/drug rehabilitation?: No Counseling given: No Adopted: No Caregiver/support person: No Lives independently: Yes Household members: spouse Housing: House Marital status: Number of children: 5 service: No Current occupational status: employed Current occupation: [employer] Pets and animals: Yes History of recent travel: No Current gender identity: Female Physical Exam Const: COMMON NORMALS: no acute distress GENERAL APPEARANCE: cooperative and comfortable ORIENTATION/CONSCIOUSNESS: Yes awake, Yes oriented to person, Yes oriented to place and Yes oriented to time HENMT: COMMON NORMALS: normocephalic, atraumatic and hearing grossly normal bilaterally HEAD & SCALP: normocephalic and atraumatic Resp: COMMON NORMALS: normal respiratory effort, No retractions, No use of accessory muscles and clear to auscultation bilaterally AUSCULTATION: clear to auscultation bilaterally Cardio: COMMON NORMALS: regular rate, regular rhythm and No murmurs present (Cardio) RATE: regular rate RHYTHM: regular rhythm GI: COMMON NORMALS: No hepatosplenomegaly present AUSCULTATION: Yes normoactive bowel sounds PALPATION: Yes Tenderness to palpation present (GI) (Diffuse, no peritoneal signs), No Guarding due to palpation present (GI) and Yes No hepatosplenomegaly present Extremity: COMMON NORMALS: normal to inspection, capillary refill normal, no clubbing, cyanosis or edema, no calf tenderness and no pedal edema Neuro: SENSORIUM/ORIENTATION: Yes oriented to person, Yes oriented to place and Yes oriented to time Skin: COMMON NORMALS: no rashes or lesions noted GENERAL SKIN EXAM: no rashes or lesions noted Course Vital Signs: Vital signs: Vital Signs Temperature 98.0 F 10/28/22 10:47 Pulse Rate 71 10/28/22 12:58 Respiratory Rate 14 10/28/22 12:58 Blood Pressure 114/90 10/28/22 12:58 Pulse Oximetry 98 10/28/22 12:58 Oxygen Delivery Me thod 10/28/22 12:58 MDM - Abdominal Pain Medical Decision Making Discharged home with constipation. Labs and imaging reviewed. Recommend using milk of magnesia or magnesium citrate [id number]. Follow-up with primary care return if is worsening or changes symptoms Medical Records I reviewed the patient's medical records. Lab Data I reviewed the patient's lab results. 10/28/22 12:05 10/28/22 12:05 Labs/Radiology: Radiology Impressions Abdomen/Pelvis CT 10/28/22 11:25 IMPRESSION: 1. No acute abdominal or pelvic abnormalities. 2. Prior appendectomy. 3. Nonobstructing bilateral renal calcifications. 4. Advanced hepatic steatosis. 5. No ascites. 6. Distal colon constipation. Laboratory Results WBC 7.9 10^3/uL (4.0-10.0) 10/28/22 12:05 RBC 5.25 10^6/uL (4.1-5.3) 10/28/22 12:05 Hgb 15.9 g/dL (11.5-15.3) H 10/28/22 12:05 Hct 48.7 % (37.0-47.0) H 10/28/22 12:05 MCV 92.8 fl (81-99) 10/28/22 12:05 MCH 30.3 pg (28.0-34.0) 10/28/22 12:05 MCHC 32.6 g/dL (30.0-36.0) 10/28/22 12:05 RDW 13.3 % (12.1-15.1) 10/28/22 12:05 Plt Count 218 10^3/cmm (130-400) 10/28/22 12:05 MPV 11.3 fL (7.4-10.4) H 10/28/22 12:05 Neut % (Auto) 61.2 % 10/28/22 12:05 Lymph % (Auto) 25.3 % 10/28/22 12:05 Hubbard % (Auto) 9.9 % 10/28/22 12:05 Eos % (Auto) 1.8 % 10/28/22 12:05 Baso % (Auto) 0.9 % 10/28/22 12:05 Neut # (Auto) 4.83 10^3/uL (1.8-7.7) 10/28/22 12:05 Lymph # (Auto) 2.0 10^3/uL (0.8-4.8) 10/28/22 12:05 Hubbard # (Auto) 0.8 10^3/uL (0.2-0.9) 10/28/22 12:05 Eos # (Auto) 0.1 10^3/uL (0.0-0.8) 10/28/22 12:05 Baso # (Auto) 0.1 10^3/uL (0.0-0.1) 10/28/22 12:05 Nucleated RBC % (auto) 0 % 10/28/22 12:05 Nucleated RBCs # 0.0 /100WBC 10/28/22 12:05 Sodium 139 mmol/L (136-145) 10/28/22 12:05 Potassium 4.3 mmol/L (3.5-5.1) 10/28/22 12:05 Chloride 104 mmol/L (98-107) 10/28/22 12:05 Carbon Dioxide 24 mmol/L (22-29) 10/28/22 12:05 Anion Gap 15.3 (5-19) 10/28/22 12:05 BUN 6 mg/dL (6-20) 10/28/22 12:05 Creatinine 0.6 mg/dL (0.5-0.9) 10/28/22 12:05 GFR Calculation 113.8 mL/min (90-130) 10/28/22 12:05 Glucose 86 mg/dL (65-115) 10/28/22 12:05 Calculated Osmolality 285 mOsm/kg (285-295) 10/28/22 12:05 Calcium 9.1 mg/dL (8.5-10.5) 10/28/22 12:05 Total Bilirubin 0.4 mg/dL (0.15-1.2) 10/28/22 12:05 AST 36 U/L (0-32) H 10/28/22 12:05 ALT 78 U/L (0-33) H 10/28/22 12:05 Alkaline Phosphatase 76 U/L (35-105) 10/28/22 12:05 Total Protein 7.3 g/dL (6.6-8.7) 10/28/22 12:05 Albumin 4.4 g/dL (3.5-5.2) 10/28/22 12:05 Globulin 2.9 g/dL (1.3-4.6) 10/28/22 12:05 HCG, Qual Negative (Negative) 10/28/22 12:05 Urine Color Yellow (Yellow) 10/28/22 13:34 Urine Appearance Sl hazy (CLEAR) A 10/28/22 13:34 Urine pH 6 (5-7) 10/28/22 13:34 Ur Specific [place] 1.010 (1.005-1.030) 10/28/22 13:34 Urine Protein Neg (Negative) 10/28/22 13:34 Urine Glucose (UA) Norm (Normal) 10/28/22 13:34 Urine Ketones Negative (Negative) 10/28/22 13:34 Urine Blood Neg (Negative) 10/28/22 13:34 Urine Nitrate Negative (Negative) 10/28/22 13:34 Urine Bilirubin Neg (Negative) 10/28/22 13:34 Urine Urobilinogen Norm mg/dL (Negative) 10/28/22 13:34 Ur Leukocyte Esterase Trace (Negative) H 10/28/22 13:34 Urine RBC Rare /hpf (0-2) 10/28/22 13:34 Urine WBC 0-4 /hpf (0-5) H 10/28/22 13:34 Ur Squamous Epith Cells 10-15 /hpf (0-5) H 10/28/22 13:34 Amorphous Sediment Not Reportable 10/28/22 13:34 Urine Bacteria 2+ /hpf (NONE) H 10/28/22 13:34 Discharge Plan Discharge Patient Disposition: Home Clinical Impression: Abdominal pain, Constipation Condition: Stable Prescriptions: No Action Nexplanon 68 mg implant 1 implant subdermal .every 3 years Qty: 1 0RF citalopram 40 mg tablet 40 mg PO BEDTIME Qty: 30 0RF metoprolol succinate 50 mg tablet extended release 24 hr 50 mg PO BEDTIME Qty: 30 0RF tramadol [Ultram] 50 mg tablet 50 mg PO QID PRN (Reason: pain) Qty: 20 0RF dicyclomine 20 mg tablet 20 mg PO TID PRN (Reason: abdominal cramps) Qty: 20 0RF oxycodone 5 mg tablet 5 mg PO Q4H PRN (Reason: pain) Qty: 10 0RF hyoscyamine sulfate [Anaspaz] 0.125 mg Tablet,Disintegrating 0.125 mg PO Q6H PRN (Reason: Cramping) Qty: 30 0RF acetaminophen [Tylenol Ex Str Rapid Release] 500 mg Tablet 1,000 mg PO Q6H PRN (Reason: Pain) ibuprofen 200 mg Tablet 400 mg PO Q6H PRN (Reason: Pain) coenzyme Q10 [CoQ-10] 100 mg Capsule 100 mg PO BID Magnesium Gummies 2 cap PO BEDTIME Discharge Orders: Discharge ED (Routine); Ordered 10/28/22 Ordered By: Geoffrey Gil Referrals: Polo Nagy, [facility] [Primary Care Provider] - Discharge Diet: Usual diet Discharge Activity: Resume usual activity Patient Instructions: Abdominal Pain (ED), Opioid Safety, Pain Management Activity Restrictions/Additional Instructions: You were seen today for complaints of abdominal pain. Your white count and laboratory tests were normal. CT did not show any acute intra-abdominal problems but did show some moderate constipation. Urine was normal. Discharge home use laxatives as needed to relieve constipation and follow-up as needed. Coding Level of Care Code ED Evidence Technician for Franklin Sanchez
--- NOTE | 2022-10-28 11:25 | CT_ITS ---
WS: [id number] CT ABDOMEN AND PELVIS NONCONTRAST HISTORY: Abdominal pain, LEFT lower quadrant pain. TECHNIQUE: Imaging performed through the abdomen and pelvis. Coronal and sagittal reformats are submi tted. All CT scans at [facility] use at least one of these dose optimization techniques: auto mated exposure control; mA and/or kV adjustment per patient size (includes targeted exams where dose is matched to clinical indication); or iterative reconstruction. DLP: 673.33 mGy.cm COMPARISON: 09/20/2022 Lower thorax: Lung bases are clear. Visualized heart is normal. No hiatal hernia. Liver: Marked decreased attenuation from hepatic steatosis. Liver is mildly enlarged. No mass identif ied on this unenhanced exam. Gallbladder: Normal gallbladder. Pancreas: Normal size and attenuation. Normal pancreatic duct. No pancreatitis or mass. Spleen: Normal. Adrenal glands: Normal. No mass. Right kidney: Normal size kidney. Nonobstructing calcification central kidney. Left kidney: Normal size kidney. Nonobstructing calcification centrally. Aorta: Normal abdominal aorta, no aneurysm or atherosclerosis. No free fluid, intraperitoneal air or significant lymphadenopathy. GI tract: Nondistended stomach. No small bowel obstruction. Prior appendectomy. No colon obstruction. Moderate amount of fecal material in the distal colon. Abdominal wall: Negative. No hernia. Pelvis: Normal. Osseous structures: Negative. CT/CT abdomen pelvis wo con [id number] IMPRESSION: 1. No acute abdominal or pelvic abnormalities. 2. Prior appendectomy. 3. Nonobstructing bilateral renal calcifications. 4. Advanced hepatic steatosis. 5. No ascites. 6. Distal colon constipation.
[2022-10-28 11:58] VITALS: BP 122/70; PULSE 87; RESP 14; O2SAT 98
[2022-10-28 12:46] LABS: Basophils # 0.1 10^3/uL (0.0-0.1); Basophils % 0.9 %; Eosinophils # 0.1 10^3/uL (0.0-0.8); Eosinophils % 1.8 %; Hematocrit 48.7 % (37.0-47.0); Hemoglobin 15.9 g/dL (11.5-15.3); Lymphocytes % 25.3 %; Mean Corpuscular HGB Conc 32.6 g/dL (30.0-36.0); Mean Corpuscular Hemoglobin 30.3 pg (28.0-34.0); Mean Corpuscular Volume 92.8 fl (81-99); Mean Platelet Volume 11.3 fL (7.4-10.4); Monocytes # 0.8 10^3/uL (0.2-0.9); Monocytes % 9.9 %; Neutrophils # 4.83 10^3/uL (1.8-7.7); Neutrophils % 61.2 %; Nucleated Red Blood Cells % 0 %; Platelet Count 218 10^3/cmm (130-400); Red Blood Count 5.25 10^6/uL (4.1-5.3); Red Cell Distribution Width 13.3 % (12.1-15.1); White Blood Count 7.9 10^3/uL (4.0-10.0)
[2022-10-28] MEDS: ondansetron 2 mg/ML SDV 2 mL 4 MG IVP (12:55)
[2022-10-28] MEDS: sodium chloride 0.9% 1,000 ML 999 ML IV (12:55)
[2022-10-28 12:58] VITALS: BP 114/90; PULSE 71; RESP 14; O2SAT 98
[2022-10-28 13:07] LABS: Alanine Aminotransferase 78 U/L (0-33); Albumin Level 4.4 g/dL (3.5-5.2); Alkaline Phosphatase 76 U/L (35-105); Anion Gap 15.3 (5-19); Aspartate Amino Transferase 36 U/L (0-32); Blood Urea Nitrogen 6 mg/dL (6-20); Calcium 9.1 mg/dL (8.5-10.5); Carbon Dioxide 24 mmol/L (22-29); Chloride 104 mmol/L (98-107); Globulin 2.9 g/dL (1.3-4.6); Glomerular Filtration Rate 113.8 mL/min (90-130); Glucose 86 mg/dL (65-115); Osmolality Calculated 285 mOsm/kg (285-295); Potassium 4.3 mmol/L (3.5-5.1); Sodium 139 mmol/L (136-145); Total Bilirubin 0.4 mg/dL (0.15-1.2); Total Protein 7.3 g/dL (6.6-8.7)
[2022-10-28 13:18] LABS: HCG, Serum Qual Negative (Negative)
[2022-10-28 14:16] LABS: Urine Appearance SL Hazy (CLEAR); Urine Color Yellow (Yellow); pH Urine 6 (5-7)
[2022-10-28 14:17] LABS: Protein Urine Neg (Negative)
[2022-10-28 14:19] LABS: Add Urine Microscopic? YES; Bilirubin Urine Neg (Negative); Blood Urine Neg (Negative); Glucose Urine UA Norm (Normal); Ketones Urine Negative (Negative); Leukocyte Esterase Urine Trace (Negative); Nitrate Urine Negative (Negative); Urobilinogen Urine Norm (Negative)
[2022-10-28 14:20] LABS: Add Urine Culture? No; Bacteria Urine 2+ /hpf; RBC Urine RARE /hpf (0-2); WBC Urine 0-4 /hpf (0-5)
== END 2022-10-28 15:05 | disposition home or self-care (01) ==
PROVIDERS: Physician Assistant; Emergency Provider Family Medicine; PCP Nurse Practitioner
DX: K59.00 Constipation, unspecified (principal); I10 Essential (primary) hypertension
CPT/HCPCS: 74176; 80053; 81001; 84703; 85025; 96360; 96374; 99285; J2405; J7030

== ENCOUNTER → 2023-04-26 15:39 | Outpatient (BNVA) | payer MEDICAID, SELFPAY | PROVIDERS: PCP Nurse Practitioner; Visit Provider Emergency Medicine | DX: S62.326A Displaced fracture of shaft of fifth metacarpal bone, right hand, initial encounter for closed fracture (principal); X58.XXXA Exposure to other specified factors, initial encounter | CPT/HCPCS: 73130 ==

== ENCOUNTER 2023-09-25 14:33 | Emergency (ER) | payer MEDICAID, SELFPAY ==
[2023-09-25 14:37] VITALS: BP 131/91; PULSE 76; RESP 18; TEMP 36.4; O2SAT 100; BMI 24.3
--- NOTE | 2023-09-25 15:06 | CTR_ITS ---
PROCEDURE INFORMATION: Exam: CT Head Without Contrast Exam date and time: 09/25/2023 3:47 PM Age: 37 years old Clinical indication: Injury or trauma; Other: Hit head on pipe; Blunt trauma (contusions or hematomas); Injury details: A head injury occuring on 09/24/23. PT was working and attempting to throw something when she hit her head on a pipe. PT has a small scratch on her forehead and reports her headache is progressively getting worse. PT reports having dizziness blurry vision and n/v. TECHNIQUE: Imaging protocol: Computed tomography of the head without contrast. Radiation optimization: All CT scans at this facility use at least one of these dose optimization techniques: automated exposure control; mA and/or kV adjustment per patient size (includes targeted exams where dose is matched to clinical indication); or iterative reconstruction. REPORTING DATA: Count of CT and Cardiac NM exams in prior 12 months: This patient has received [address] and 0 known cardiac nuclear medicine studies in the 12 months prior to the current study. COMPARISON: No relevant prior studies available. RADIATION DOSE METRICS: Total DLP (mGy-cm): 1089.53 FINDINGS: Brain: Normal. No hemorrhage. Unremarkable white matter. No mass effect. Cerebral ventricles: No ventriculomegaly. Paranasal sinuses: Visualized sinuses are unremarkable. No fluid levels. Mastoid air cells: Visualized mastoid air cells are well aerated. Bones/joints: Unremarkable. No acute fracture. Soft tissues: Unremarkable. CT/CT head wo con* [id number] IMPRESSION: No acute intracranial abnormality.
--- NOTE | 2023-09-25 15:19 | W.ED.HEATRA ---
HPI - Head Injury General: Chief complaint: Head Injury Stated complaint: hit head, N, blurry vision Time Seen by Provider: 09/25/23 15:12 Source: patient Mode of arrival: ambulatory Limitations: no limitations History of Present Illness: 37-year-old female who states that she had hit her head yesterday on a metal part of a squeeze shoe. States she had a very hard she has had severe headaches since then. States her headaches currently a 9 out of 10. She does have a history of migraines and it is similar states she is having photophobia and phonophobia. She denies any neck pain denies any loss of consciousness. Associated symptoms: Deny nausea, neck pain or vomiting Review of Systems Const: Denies: fever(s), chills, body aches or change in appetite ENMT: Denies: throat pain or dental pain Card: Denies: chest pain Resp: Denies: dyspnea GI: Denies: abdominal pain, nausea, vomiting or diarrhea Musc: Denies: neck pain or back pain Skin/Breast: Denies: rash Neuro: Reports: headache(s) PFSH ED PFSH: Medical History Allergy to alpha-gal Anxiety No pertinent past medical history Denies diabetes, asthma, hypertension, seizures, DVT/PE PCP: LYNDA Gatica Essential (primary) hypertension Chronic left lumbar radiculopathy T12: Mild anterior compression deformity. Mixed increased and decreased signal intensity along the superior endplate without retropulsion. No marrow edema into the posterior elements. No contact on the cord. Mild straightening of the normal lumbar lordosis. No lumbar spine fracture. Benign hemangioma in L3. Mild disc desiccation at L4-5. Conus terminates normally at L1-2 disc level. L1-L2: Normal. L2-L3: Normal. L3-L4: Mild facet and ligamentum flavum hypertrophy with no stenosis. L4-L5: Broad-based shallow central disc protrusion with annular fissure. Broad-based protrusion is abutting the L5 nerve roots bilaterally, greatest on the RIGHT. Significant compression of the RIGHT L5 nerve root. Small amount of fluid in the facet joints. Mild central stenosis. L5-S1: Mild annular disc bulging without stenosis. Small amount of fluid in the facet joints. Paravertebral soft tissues are negative. Surgical History Status post laparoscopy 02/19/2006---Diagnostic laparoscopy, hysteroscopy done for chronic pelvic pain and severe dysmenorrhea by Dr. Green at [facility]. --Operative reports have been received and reviewed and a hysteroscopy, diagnostic laparoscopy was performed. At time of laparoscopy there were filmy adhesions in the right paracolic gutter however no pelvic adhesions, endometriosis or gross abnormalities were noted, hysteroscopy done showed no intracavitary abnormalities either.(Operative report has been scanned-all scripts.) S/P dilation and curettage 05/14/2012--incomplete with hemorrhage. Performed by Dr. Goldstein at [facility] in [place], [place] S/P LEEP 12/2007---LEEP done for cervical abnormality in [facility]. These records were requested and reviewed. 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 She denied underwent a cone biopsy. Pathology was not obtained.(scanned) History of laparoscopy 07/05/2015---Diagnostic laparoscopy, hysteroscopy and D&C done for chronic pelvic pain/dyspareunia by Dr. Shelton at [facility]. --> Hysteroscopy showed no abnormalities of the endometrium and bilateral ostia noted. Pathology of the D&C showed disordered proliferation with stromal collapse. Diagnostic laparoscopy showed minimal filmy adhesions in the right middle quadrant of the bowel to the sidewall. No other dictations were noted in the pelvis, no signs of endometriosis, normal tubes and ovaries bilaterally, normal uterus, dilated uterine vessels. History of appendectomy 05/1998--open appendectomy at the age of 12 History of orthopedic surgery (~2002) Left shoulder surgery Family History Mother Hypertension Thyroid disease Breast cancer diagnosed in her late 40s Diabetes Father Hypertension Diabetes Sister Hypertension Heart disease Grandmother Diabetes paternal Grandfather Diabetes maternal Denies family history of Colon cancer Ovarian cancer Hyperlipidemia Uterine cancer Stroke Social History Smoking and tobacco/nicotine status: never used tobacco/nicotine Second hand smoke exposure: No Alcohol intake: never Substance/Drug Use: never Adopted: No Caregiver/support person: No Lives independently: Yes Household members: spouse Housing: House Marital status: Number of children: 5 service: No Current occupational status: employed 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 [employer] Pets and animals: Yes Do you think of yourself as: Straight/Heterosexual Current gender identity: Female Physical Exam Const: COMMON NORMALS: no acute distress, patient oriented x3 and healthy appearing HENMT: COMMON NORMALS: normocephalic HEAD & SCALP: normocephalic OTHER: Abrasion noted to right parietal scalp contusion to forehead Eye: COMMON NORMALS: Equal, round and reactive pupils present and EOMs intact bilaterally PUPIL: Yes Equal, round and reactive pupils present Neck/C-Spine: COMMON NORMALS: full ROM and supple Chest: COMMONS NORMALS: normal inspection of the chest Resp: COMMON NORMALS: normal respiratory effort Cardio: COMMON NORMALS: regular rate, regular rhythm and No murmurs present (Cardio) RATE: regular rate RHYTHM: regular rhythm Extremity: COMMON NORMALS: normal to inspection and full ROM Neuro: COMMON NORMALS: patient oriented x3, moves all extremities and no focal motor deficits Psych: COMMON NORMALS: mental status grossly normal, Normal thought process present and cooperative THOUGHT PROCESS: Normal thought process present Skin: COMMON NORMALS: no rashes or lesions noted and no wounds GENERAL SKIN EXAM: no rashes or lesions noted Course Vital Signs: Vital signs: Vital Signs Temperature 97.6 F 09/25/23 14:37 Pulse Rate 76 09/25/23 14:37 Respiratory Rate 18 09/25/23 15:40 Blood Pressure 131/91 09/25/23 14:37 Pulse Oximetry 100 09/25/23 14:37 Oxygen Delivery Me thod Room Air 09/25/23 14:37 MDM - Head Injury Medcial Decision Making patient presents here with closed head injury along with a headache head CT here is normal headaches much improved she is stable for discharge she is follow-up with PCP and return if worsening she understands agrees to plan. Medical Records I reviewed the patient's medical records. Lab Data Radiology Impressions Head CT 09/25/23 15:06 IMPRESSION: No acute intracranial abnormality. All radiology interpretation(s) finalized by discharge Discharge Plan Discharge Patient Disposition: Home Clinical Impression: Closed head injury Condition: Stable Prescriptions: No Action Nexplanon 68 mg implant 1 implant subdermal .every 3 years Qty: 1 0RF metoprolol succinate 25 mg tablet extended release 24 hr 25 mg PO BEDTIME Qty: 30 5RF fluoxetine [Prozac] 20 mg capsule 20 mg PO DAILY Qty: 30 5RF valsartan [Diovan] 40 mg tablet 40 mg PO DAILY Qty: 30 5RF acetaminophen [Tylenol Ex Str Rapid Release] 500 mg Tablet 1,000 mg PO Q6H PRN (Reason: Pain) ibuprofen 200 mg Tablet 400 mg PO Q6H PRN (Reason: Pain) coenzyme Q10 [CoQ-10] 100 mg Capsule 100 mg PO BID Magnesium Gummies 2 cap PO BEDTIME Discharge Orders: Discharge ED (Routine); Ordered 09/25/23 Ordered By: Kuldeep Sullivan Referrals: Polo Nagy, FINANCE ADMINISTRATOR-C [Primary Care Provider] - 1-3 days Discharge Diet: Advance as tolerated Discharge Activity: Resume usual activity Patient Instructions: Head Injury (ED) Coding Level of Care Code ED Developer Evangelist for Franklin Sanchez
[2023-09-25] MEDS: diphenhydrAMINE 50 mg/mL SDV 1mL IVP (15:39)
[2023-09-25] MEDS: metoclopramide 5 mg/mL SDV 2 mL 10 MG IVP (15:39)
[2023-09-25 15:40] VITALS: RESP 18
== END 2023-09-25 16:46 | disposition home or self-care (01) ==
PROVIDERS: Emergency Provider Emergency Medicine; PCP Nurse Practitioner
DX: S00.01XA Abrasion of scalp, initial encounter (principal); S00.83XA Contusion of other part of head, initial encounter; I10 Essential (primary) hypertension; W22.8XXA Striking against or struck by other objects, initial encounter
CPT/HCPCS: 70450; 96374; 96375; 99284; J1200; J2765

== ENCOUNTER 2024-04-06 07:35 | Outpatient (CLI) | payer MEDICAID, SELFPAY ==
[2024-04-06 08:39] LABS: Erythrocyte Sedimentation Rate 3 mm/hr (0-15)
[2024-04-06 09:00] LABS: Free T4 Free Thyroxine 1.01 ng/dL (0.82-1.77); T3 Free 2.9 PG/ML (2.0-4.4)
== END 2024-04-06 07:36 | disposition home or self-care (01) ==
PROVIDERS: PCP Nurse Practitioner; Visit Provider Nurse Practitioner
DX: I10 Essential (primary) hypertension (principal); R00.0 Tachycardia, unspecified
CPT/HCPCS: 84439; 84481; 85651; 86140

== ENCOUNTER → 2024-09-13 15:20 | Outpatient (BNVA) | payer MEDICAID, SELFPAY | PROVIDERS: PCP Nurse Practitioner; Visit Provider Nurse Practitioner | DX: I10 Essential (primary) hypertension; R00.0 Tachycardia, unspecified | CPT/HCPCS: 80053; 84443 ==

== ENCOUNTER 2024-11-11 11:11 | Emergency (ER) | payer BC, SELFPAY ==
--- NOTE | 2024-11-11 11:12 | XR_ITS ---
WS: [id number] Exam: XR chest 1V portable [id number] Date/Time of Exam: 11/11/2024 11:12 AM Reason For Exam: cp Comparison 06/17/2022. The lungs are clear and fully expanded. Normal cardiomediastinal silhouette and regional bony element s. No pleural effusion. XR/XR chest 1V portable [id number] IMPRESSION: 1. Normal chest.
--- NOTE | 2024-11-11 11:12 | ECG_ITS ---
[facility] Test Date: 2024-11-11 Pat Name: Camilla Vega Department: Room: Gender: Female Registration Specialist: : 1985 Requested By: Kuldeep Sullivan Order Number: [id number] Anuj MD: Prince Helm M.D. Measurements Intervals [place] Rate: 114 P: 58 ND: 136 QRS: 51 QRSD: 85 T: 50 QT: 343 QTc: 473 Interpretive Statements SINUS TACHYCARDIA No previous ECG available for comparison Electronically Signed On 11-12-2024 13:20:19 ENVIRONMENTAL SCIENCE TECHNICIAN by Prince Helm M.D. [id number]
[2024-11-11 11:19] VITALS: BP 119/82; PULSE 99; RESP 22; TEMP 36.6; O2SAT 98; BMI 25.0
--- NOTE | 2024-11-11 11:47 | W.ED.CHESTPA ---
HPI - Chest Pain General: Chief Complaint: Chest Pain Stated Complaint: chest pain Time Seen by Provider: 11/11/24 11:30 Source: patient Mode of arrival: ambulatory Limitations: no limitations History of Present Illness: Patient is a 39-year-old female with no known history of cardiac disease here for complaints of racing heart and chest pain. Patient states she has had significant life stressor as she has recently found out her of 15 years is having an affair. Patient arrives visibly anxious and tearful. Her vital signs are stable. Patient denies suicidal ideations. She states they have 5 children together. MD complaint: chest pain and other (racing heart) Onset (ago): day(s) (starting yesterday) Timing of current episode: episodic Onset: during rest Pain location: substernal Pain radiation: left shoulder Severity: moderate Relieving factors: nothing Exacerbating factors: stress Associated symptoms: Reports palpitations; Deny dyspnea, fever(s) or syncope Treatment prior to arrival: none Risk Factors: Coronary artery disease risk factors: none Thoracic aortic dissection risk factors: none Related Data Home Medications Medication Instructions Recorded Confirmed doxepin 10 mg capsule 10 mg PO BID 11/11/24 11/11/24 Previous Rx's Medication Instructions Recorded metoprolol succinate 50 mg 50 mg PO Q12H #60 tabs 09/13/24 tablet,extended release 24 hr valsartan 80 mg tablet (Diovan) 80 mg PO DAILY #30 tabs 09/13/24 Allergies Allergy/AdvReac Type Severity Reaction Status Date / Time morphine Allergy Unknown Verified 11/11/24 11:19 fluconazole [From Diflucan] AdvReac Mild ADR-Nausea Verified 11/11/24 11:19 venlafaxine [From Effexor] AdvReac Mild causes Verified 11/11/24 11:19 seizures Review of Systems Const: Denies: fever(s), chills, body aches, fatigue or malaise Card: Reports: chest pain and palpitations; Denies: irregular heart rhythm, edema, swelling of feet/ankles, syncope, pre-syncope, dyspnea on exertion, orthopnea, leg pain with exertion or acrocyanosis Resp: Denies: dyspnea or chest congestion Musc: Denies: extremity swelling Neuro: Denies: headache(s) or dizziness PFSH ED PFSH: Medical History Allergy to alpha-gal Anxiety No pertinent past medical history Denies diabetes, asthma, hypertension, seizures, DVT/PE PCP: LYNDA Gatica Essential (primary) hypertension Chronic left lumbar radiculopathy T12: Mild anterior compression deformity. Mixed increased and decreased signal intensity along the superior endplate without retropulsion. No marrow edema into the posterior elements. No contact on the cord. Mild straightening of the normal lumbar lordosis. No lumbar spine fracture. Benign hemangioma in L3. Mild disc desiccation at L4-5. Conus terminates normally at L1-2 disc level. L1-L2: Normal. L2-L3: Normal. L3-L4: Mild facet and ligamentum flavum hypertrophy with no stenosis. L4-L5: Broad-based shallow central disc protrusion with annular fissure. Broad-based protrusion is abutting the L5 nerve roots bilaterally, greatest on the RIGHT. Significant compression of the RIGHT L5 nerve root. Small amount of fluid in the facet joints. Mild central stenosis. L5-S1: Mild annular disc bulging without stenosis. Small amount of fluid in the facet joints. Paravertebral soft tissues are negative. Surgical History Status post laparoscopy 02/19/2006---Diagnostic laparoscopy, hysteroscopy done for chronic pelvic pain and severe dysmenorrhea by Dr. Green at [facility]. --Operative reports have been received and reviewed and a hysteroscopy, diagnostic laparoscopy was performed. At time of laparoscopy there were filmy adhesions in the right paracolic gutter however no pelvic adhesions, endometriosis or gross abnormalities were noted, hysteroscopy done showed no intracavitary abnormalities either.(Operative report has been scanned-all scripts.) S/P dilation and curettage 05/14/2012--incomplete with hemorrhage. Performed by Dr. Goldstein at [facility] in [place], [place] S/P LEEP 12/2007---LEEP done for cervical abnormality in [facility]. These records were requested and reviewed. 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 She denied underwent a cone biopsy. Pathology was not obtained.(scanned) History of laparoscopy 07/05/2015---Diagnostic laparoscopy, hysteroscopy and D&C done for chronic pelvic pain/dyspareunia by Dr. Shelton at [facility]. --> Hysteroscopy showed no abnormalities of the endometrium and bilateral ostia noted. Pathology of the D&C showed disordered proliferation with stromal collapse. Diagnostic laparoscopy showed minimal filmy adhesions in the right middle quadrant of the bowel to the sidewall. No other dictations were noted in the pelvis, no signs of endometriosis, normal tubes and ovaries bilaterally, normal uterus, dilated uterine vessels. History of appendectomy 05/1998--open appendectomy at the age of 12 History of orthopedic surgery (~2002) Left shoulder surgery Family History Mother Hypertension Thyroid disease Breast cancer diagnosed in her late 40s Diabetes Father Hypertension Diabetes Sister Hypertension Heart disease Grandmother Diabetes paternal Grandfather Diabetes maternal Denies family history of Colon cancer Ovarian cancer Hyperlipidemia Uterine cancer Stroke Social History Smoking and tobacco/nicotine status: never used tobacco/nicotine Second hand smoke exposure: No Alcohol intake: never Substance/Drug Use: never Adopted: No Caregiver/support person: No Lives independently: Yes Household members: spouse Housing: House Marital status: Number of children: 5 service: No Current occupational status: employed 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 [employer] Pets and animals: Yes Do you think of yourself as: Straight/Heterosexual Current gender identity: Female Physical Exam Const: COMMON NORMALS: average body habitus, patient oriented x3, no limitations, healthy appearing, alert and well nourished GENERAL APPEARANCE: cooperative and anxious ORIENTATION/CONSCIOUSNESS: Yes awake, Yes oriented to person, Yes oriented to place and Yes oriented to time Neck/C-Spine: COMMON NORMALS: no JVD Chest: COMMONS NORMALS: normal inspection of the chest and normal palpation of entire chest wall Resp: COMMON NORMALS: normal respiratory effort and clear to auscultation bilaterally AUSCULTATION: clear to auscultation bilaterally Cardio: COMMON NORMALS: no JVD, regular rate and regular rhythm RATE: regular rate RHYTHM: regular rhythm GI: COMMON NORMALS: Normal to inspection, nondistended, normoactive bowel sounds present, Soft to palpation, non-tender and no masses PALPATION: Yes Soft to palpation Extremity: COMMON NORMALS: no clubbing, cyanosis or edema, no calf tenderness and no pedal edema GENERAL: Yes normal exam except as noted Neuro: COMMON NORMALS: patient oriented x3 SENSORIUM/ORIENTATION: Yes alert, Yes oriented to person, Yes oriented to place and Yes oriented to time Course Vital Signs: Vital signs: Vital Signs Temperature 97.9 F 11/11/24 11:19 Pulse Rate 99 11/11/24 11:19 Respiratory Rate 22 H 11/11/24 11:19 Blood Pressure 119/82 11/11/24 11:19 Pulse Oximetry 98 11/11/24 11:19 MDM - Chest Pain Medical Decision Making Patient's symptoms are most likely secondary to anxiety. She was initially tachycardic upon arrival to the emergency department but this has resolved. Her EKG is nonischemic. Vital signs have been stable. Troponin is unremarkable. CXR is normal. Remainder of labs are nonactionable. Patient has follow-up with her primary care provider on Thursday. She feels comfortable going home at this time. I do not have any suspicion for life-threatening etiology including ACS, PE, dissection/aneurysm, pneumothorax, etc. Medical Records I reviewed the patient's medical records. Lab Data I reviewed the patient's lab results. 11/11/24 11:31 11/11/24 11:31 Radiology Impressions Chest X-Ray 11/11/24 11:12 IMPRESSION: 1. Normal chest. Laboratory Results WBC 8.28 10^3/uL (3.29-11.43) 11/11/24 11:31 RBC 4.92 10^6/uL (3.85-5.65) 11/11/24 11:31 Hgb 14.70 g/dL (11.27-16.99) 11/11/24 11:31 Hct 43.6 % (36-47) 11/11/24 11:31 MCV 88.6 fl (85-98) 11/11/24 11:31 MCH 29.9 pg (27-33) 11/11/24 11:31 MCHC 33.7 g/dL (30-55) 11/11/24 11:31 RDW 13.4 % (12.1-15.1) 11/11/24 11:31 Plt Count 288 10^3/cmm (157-399) 11/11/24 11: MPV 11.4 fL (7.4-10.4) H 11/11/24 11: Neut % (Auto) 79.0 % 11/11/24 11:31 Lymph % (Auto) 11.8 % 11/11/24 11: [place] % (Auto) 7.2 % 11/11/24 11: Eos % (Auto) 1.2 % 11/11/24 11:31 Baso % (Auto) 0.6 % 11/11/24 11:31 Neut # (Auto) 6.53 10^3/uL (1.8-7.7) 11/11/24 11: Lymph # (Auto) 1.0 10^3/uL (0.8-4.8) 11/11/24 11: [place] # (Auto) 0.6 10^3/uL (0.2-0.9) 11/11/24 11: Eos # (Auto) 0.1 10^3/uL (0.0-0.8) 11/11/24 11: Baso # (Auto) 0.1 10^3/uL (0.0-0.1) 11/11/24 11: Nucleated RBC % (auto) 0 % 11/11/24 11: Nucleated RBCs # 0.0 /100WBC 11/11/24 11: PT 13.70 SECONDS (12.1-14.9) 11/11/24 11: INR 0.98 (0.8-1.2) 11/11/24 11:31 Sodium 138 mmol/L (136-145) 11/11/24 11:31 Potassium 4.3 mmol/L (3.5-5.1) 11/11/24 11: Chloride 102 mmol/L (98-107) 11/11/24 11: Carbon Dioxide 21 mmol/L (22-29) L 11/11/24 11:31 Anion Gap 19.3 (5-19) H 11/11/24 11:31 BUN 15 mg/dL (6-20) 11/11/24 11: Creatinine 0.6 mg/dL (0.5-0.9) 11/11/24 11:31 GFR Calculation 112.5 mL/min (90-130) 11/11/24 11:31 Glucose 117 mg/dL (65-115) H 11/11/24 11:31 Calculated Osmolality 288 mOsm/kg (285-295) 11/11/24 11:31 Calcium 9.6 mg/dL (8.5-10.5) 11/11/24 11:31 Total Bilirubin 1.4 mg/dL (0.15-1.2) H 11/11/24 11:31 AST 20 U/L (0-32) 11/11/24 11:31 ALT 26 U/L (0-33) 11/11/24 11:31 Alkaline Phosphatase 63 U/L (35-105) 11/11/24 11:31 Troponin T Baseline < 6 ng/L (0-10) 11/11/24 11:31 Total Protein 7.2 g/dL (6.6-8.7) 11/11/24 11:31 Albumin 4.9 g/dL (3.5-5.2) 11/11/24 11:31 Globulin 2.3 g/dL (1.3-4.6) 11/11/24 11:31 Lipase 44 U/L (13-60) 11/11/24 11:31 HCG, Qual Negative (Negative) 11/11/24 11:31 All radiology interpretation(s) finalized by discharge Discharge Plan Discharge Patient Disposition: Home Clinical Impression: Anxiety Condition: Stable Prescriptions: No Action doxepin 10 mg capsule 10 mg PO BID metoprolol succinate 50 mg tablet extended release 24 hr 50 mg PO Q12H Qty: 60 5RF valsartan [Diovan] 80 mg tablet 80 mg PO DAILY Qty: 30 5RF Rx Instructions: dose increase stop 40mg Discharge Orders: Discharge ED (Routine); Ordered 11/11/24 Ordered By: Bren Cheung Referrals: Polo Nagy, LOOM REPAIRER-C [Primary Care Provider] - Patient Instructions: Anxiety (ED) Coding Level of Care Code ED Sustainable Communities Designer for Franklin Sanchez
[2024-11-11 11:54] LABS: Basophils # 0.1 10^3/uL (0.0-0.1); Basophils % 0.6 %; Eosinophils # 0.1 10^3/uL (0.0-0.8); Eosinophils % 1.2 %; Hematocrit 43.6 % (36-47); Lymphocytes % 11.8 %; Mean Corpuscular HGB Conc 33.7 g/dL (30-55); Mean Corpuscular Hemoglobin 29.9 pg (27-33); Mean Corpuscular Volume 88.6 fl (85-98); Mean Platelet Volume 11.4 fL (7.4-10.4); Monocytes # 0.6 10^3/uL (0.2-0.9); Monocytes % 7.2 %; Neutrophils # 6.53 10^3/uL (1.8-7.7); Nucleated Red Blood Cells % 0 %; Platelet Count 288 10^3/cmm (157-399); Red Blood Count 4.92 10^6/uL (3.85-5.65); Red Cell Distribution Width 13.4 % (12.1-15.1); White Blood Count 8.28 10^3/uL (3.29-11.43)
[2024-11-11 12:00] VITALS: BP 108/82; PULSE 85; O2SAT 97
[2024-11-11 12:03] LABS: HCG, Serum Qual Negative (Negative)
[2024-11-11 12:06] LABS: INR 0.98 (0.8-1.2)
[2024-11-11 12:12] LABS: Alanine Aminotransferase 26 U/L (0-33); Albumin Level 4.9 g/dL (3.5-5.2); Alkaline Phosphatase 63 U/L (35-105); Anion Gap 19.3 (5-19); Aspartate Amino Transferase 20 U/L (0-32); Blood Urea Nitrogen 15 mg/dL (6-20); Calcium 9.6 mg/dL (8.5-10.5); Carbon Dioxide 21 mmol/L (22-29); Chloride 102 mmol/L (98-107); Creatinine Clr Calc Pharmacy 129.1014; Globulin 2.3 g/dL (1.3-4.6); Glomerular Filtration Rate 112.5 mL/min (90-130); Glucose 117 mg/dL (65-115); Lipase 44 U/L (13-60); Osmolality Calculated 288 mOsm/kg (285-295); Potassium 4.3 mmol/L (3.5-5.1); Sodium 138 mmol/L (136-145); Total Bilirubin 1.4 mg/dL (0.15-1.2); Total Protein 7.2 g/dL (6.6-8.7)
[2024-11-11 12:13] LABS: Troponin(5th) Baseline < 6 ng/L (0-10)
[2024-11-11 12:30] VITALS: PULSE 77; O2SAT 99
[2024-11-11 13:00] VITALS: BP 107/81; PULSE 95; O2SAT 95
[2024-11-11 13:21] VITALS: BP 107/81; PULSE 80; O2SAT 97
== END 2024-11-11 13:00 | disposition home or self-care (01) ==
PROVIDERS: Emergency Medicine; Emergency Provider Physician Assistant; PCP Nurse Practitioner
DX: F41.9 Anxiety disorder, unspecified (principal); I10 Essential (primary) hypertension
CPT/HCPCS: 36415; 71045; 80053; 83690; 84484; 84703; 85025; 85610; 93005; 99285

== ENCOUNTER 2025-01-22 02:26 | Emergency (ER) | payer BC, SELFPAY ==
--- NOTE | 2025-01-22 02:30 | ECG_ITS ---
[employer] Test Date: 2025-01-22 Pat Name: Camilla Vega Department: Room: Gender: Female Hospital Corpsman: : 1985 Requested By: William Campbell Order Number: [id number] Anuj MD: Melvin Anglin M.D. Measurements Intervals [place] Rate: 91 P: 81 RI: 160 QRS: 80 QRSD: 88 T: 76 QT: 367 QTc: 453 Interpretive Statements SINUS RHYTHM WITH SINUS ARRHYTHMIA Compared to ECG 11/11/2024 11:14:12 Sinus tachycardia no longer present Electronically Signed On 01-22-2025 21:14:31 CDT by Melvin Anglin M.D. [email or web address] [id number]
--- NOTE | 2025-01-22 02:30 | XRR_ITS ---
PROCEDURE INFORMATION: Exam: XR Chest Exam date and time: 01/22/2025 2:43 AM Age: 39 years old Clinical indication: Chest pressure; C/O chest pain TECHNIQUE: Imaging protocol: Radiologic exam of the chest. Views: 1 view. COMPARISON: CR XR chest 1V portable [id number] 11/11/2024 11:49 AM FINDINGS: Lungs: No CHF/pulmonary edema. Visible lungs appear essentially clear. Pleural spaces: No visible pneumothorax. No definite pleural fluid. Heart/Mediastinum: Heart size is within normal limits. Bones/joints: No significant acute finding. XR/XR chest 1V portable [id number] IMPRESSION: 1. Essentially unremarkable single view chest. 2. Other details discussed above.
[2025-01-22 02:33] VITALS: BP 106/82; PULSE 93; RESP 20; TEMP 36.8; O2SAT 99; BMI 22.6
[2025-01-22 02:55] LABS: Basophils # 0.1 10^3/uL (0.0-0.1); Basophils % 0.9 %; Eosinophils # 0.3 10^3/uL (0.0-0.8); Eosinophils % 3.5 %; Lymphocytes # 1.9 10^3/uL (0.8-4.8); Lymphocytes % 22.6 %; Mean Corpuscular Hemoglobin 30.4 pg (27-33); Mean Corpuscular Volume 92.1 fl (85-98); Mean Platelet Volume 11.6 fL (7.4-10.4); Monocytes # 0.9 10^3/uL (0.2-0.9); Monocytes % 10.6 %; Neutrophils # 5.12 10^3/uL (1.8-7.7); Neutrophils % 62.2 %; Nucleated Red Blood Cells % 0 %; Platelet Count 230 10^3/cmm (157-399); Red Blood Count 4.67 10^6/uL (3.85-5.65); Red Cell Distribution Width 13.9 % (12.1-15.1); White Blood Count 8.23 10^3/uL (3.29-11.43)
[2025-01-22 03:07] LABS: Partial Thromboplastin Time 27.9 SECONDS (23.9-36.7)
[2025-01-22 03:15] LABS: Troponin(5th) Baseline < 6 ng/L (0-10)
[2025-01-22 03:26] LABS: Alanine Aminotransferase 25 U/L (0-33); Albumin Level 4.9 g/dL (3.5-5.2); Alkaline Phosphatase 59 U/L (35-105); Anion Gap 17.8 (5-19); Aspartate Amino Transferase 20 U/L (0-32); Blood Urea Nitrogen 7 mg/dL (6-20); Calcium 9.2 mg/dL (8.5-10.5); Carbon Dioxide 23 mmol/L (22-29); Chloride 102 mmol/L (98-107); Creatine Phosphokinase 86 U/L (26-192); Creatinine Clr Calc Pharmacy 123.5857; Globulin 2.4 g/dL (1.3-4.6); Glomerular Filtration Rate 112.5 mL/min (90-130); Glucose 83 mg/dL (65-115); Lipase 52 U/L (13-60); NT Pro B Type Natriuretic Pept < 36 pg/mL (0-125); Osmolality Calculated 285 mOsm/kg (285-295); Potassium 3.8 mmol/L (3.5-5.1); Sodium 139 mmol/L (136-145); Total Bilirubin 0.5 mg/dL (0.15-1.2); Total Protein 7.3 g/dL (6.6-8.7)
[2025-01-22 03:28] LABS: Alcohol Level < 10 mg/dL (0-10)
[2025-01-22 03:36] VITALS: BP 113/87; PULSE 85; RESP 16; O2SAT 98
--- NOTE | 2025-01-22 03:39 | ED_ITS ---
HPI - Chest Pain 2 General: Chief Complaint: Chest Pain Stated Complaint: CP Time Seen by Provider: 01/22/25 02:48 History of Present Illness: 39-year-old female who tells me she has a history of SVT. She presents with chest discomfort that started at home. She says it feels like her chest started pounding very hard, Her hand started to get tight. She felt it in her neck as well, and she had trouble breathing. Ambulance was called. Symptoms are essentially resolved now. She does have a headache. She was given aspirin and nitroglycerin in the ambulance. She has an appointment with a new funeral director in 3 days. She felt well prior to this. Related Data Previous Rx's ?Medication ?Instructions ?Recorded metoprolol succinate 50 mg 50 mg PO Q12H #60 tabs 01/02 tablet,extended release 24 hr valsartan 80 mg tablet (Diovan) 80 mg PO DAILY #30 tab s 09/13/24 doxepin 25 mg capsule 25 mg PO TID #90 caps Allergies Allergy/AdvReac Type Severity Reaction Status Date / Time morphine Allergy Unknown Verified 11/15/24 09:52 fluconazole (From Diflucan) AdvReac Mild ADR-Nausea Verified 11/15/24 09:52 venlafaxine (From Effexor) AdvReac Mild causes Verified 11/15/24 09:52 seizures PFSH ED 2 PFSH: Medical History Allergy to alpha-gal Anxiety Essential (primary) hypertension Chronic left lumbar radiculopathy T12: Mild anterior compression deformity. Mixed increased and decreased signal intensity along the superior endplate without retropulsion. No marrow edema into the posterior elements. No contact on the cord. Mild straightening of the normal lumbar lordosis. No lumbar spine fracture. Benign hemangioma in L3. Mild disc desiccation at L4-5. Conus terminates normally at L1-2 disc level. L1-L2: Normal. L2-L3: Normal. L3-L4: Mild facet and ligamentum flavum hypertrophy with no stenosis. L4-L5: Broad-based shallow central disc protrusion with annular fissure. Broad-based protrusion is abutting the L5 nerve roots bilaterally, greatest on the RIGHT. Significant compression of the RIGHT L5 nerve root. Small amount of fluid in the facet joints. Mild central stenosis. L5-S1: Mild annular disc bulging without stenosis. Small amount of fluid in the facet joints. Paravertebral soft tissues are negative. Surgical History Status post laparoscopy 02/19/2006---Diagnostic laparoscopy, hysteroscopy done for chronic pelvic pain and severe dysmenorrhea by Dr. Green at [facility]. --Operative reports have been received and reviewed and a hysteroscopy, diagnostic laparoscopy was performed. At time of laparoscopy there were filmy adhesions in the right paracolic gutter however no pelvic adhesions, endometriosis or gross abnormalities were noted, hysteroscopy done showed no intracavitary abnormalities either.(Operative report has been scanned-all scripts.) S/P dilation and curettage 05/14/2012--incomplete with hemorrhage. Performed by Dr. Goldstein at [facility] in [place], [place] S/P LEEP 12/2007---LEEP done for cervical abnormality in [facility]. These records were requested and reviewed. 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 She denied underwent a cone biopsy. Pathology was not obtained.(scanned) History of laparoscopy 07/05/2015---Diagnostic laparoscopy, hysteroscopy and D&C done for chronic pelvic pain/dyspareunia by Dr. Shelton at [facility]. --> Hysteroscopy showed no abnormalities of the endometrium and bilateral ostia noted. Pathology of the D&C showed disordered proliferation with stromal collapse. Diagnostic laparoscopy showed minimal filmy adhesions in the right middle quadrant of the bowel to the sidewall. No other dictations were noted in the pelvis, no signs of endometriosis, normal tubes and ovaries bilaterally, normal uterus, dilated uterine vessels. History of appendectomy 05/1998--open appendectomy at the age of 12 History of orthopedic surgery (~2002) Left shoulder surgery Family History Mother Hypertension Thyroid disease Breast cancer diagnosed in her late 40s Diabetes Father Hypertension Diabetes Sister Hypertension Heart disease Grandmother Diabetes paternal Grandfather Diabetes maternal Denies family history of Colon cancer Ovarian cancer Hyperlipidemia Uterine cancer Stroke Social History Smoking and tobacco/nicotine status: never used tobacco/nicotine Second hand smoke exposure: No Alcohol intake: never Substance/Drug Use: never Adopted: No Caregiver/support person: No Lives independently: Yes Household members: spouse Housing: House Marital status: Number of children: 5 service: No Current occupational status: employed 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 [email or web address] Pets and animals: Yes Do you think of yourself as: Straight/Heterosexual Current gender identity: Female Physical Exam 2 Const: COMMON NORMALS: no acute distress GENERAL APPEARANCE: cooperative and anxious; not ill appearing and not frail appearing HENMT: COMMON NORMALS: normocephalic, atraumatic and Normal external nose present HEAD & SCALP: normocephalic and atraumatic FACE & SINUS: normal facial exam and face symmetric NOSE: Normal external nose present Eye: COMMON NORMALS: Equal, round and reactive pupils present and EOMs intact bilaterally PUPIL: Yes Equal, round and reactive pupils present Neck/C-Spine: GENERAL: Yes trachea midline Chest: CHEST: Yes Symmetrical chest wall rise Resp: COMMON NORMALS: normal respiratory effort, No retractions, No use of accessory muscles and clear to auscultation bilaterally AUSCULTATION: clear to auscultation bilaterally Cardio: COMMON NORMALS: regular rate and regular rhythm RATE: regular rate RHYTHM: regular rhythm GI: COMMON NORMALS: Normal to inspection, nondistended, normoactive bowel sounds present Extremity: COMMON NORMALS: no pedal edema Neuro: LAVERNE COMA SCALE: document GCS findings La[place]ne coma scale eye opening: Spontaneous [place] coma scale verbal response: Orientated [place] coma scale motor response: Obey commands La[place] coma scale total score: 15 S ENSORY EXAM: Yes extremities (intact) Psych: COMMON NORMALS: speech normal SPEECH: Yes normal speech Skin: COMMON NORMALS: no rashes or lesions noted GENERAL SKIN EXAM: no rashes or lesions noted Course 2 Vital Signs: Vital signs: Vital Signs Temperature 98.2 F 01/22/25 02:33 Pulse Rate 86 01/22/25 04:34 Respiratory Rate 16 01/22/25 03:36 Blood Pressure 113/87 01/22/25 04:34 Pulse Oximetry 97 01/22/25 04:34 MDM - Chest Pain Medical Decision Making Exam is unremarkable. Her vitals are normal. CBC BMP are normal. Troponin is nondetectable. EKG shows sinus rhythm with sinus arrhythmia with a rate of 90, normal axis, normal intervals, no ST wave changes. Chest x-ray is negative. She had her Nexplanon removed 2 weeks ago, so there is very little chance she is . TSH and free T4 were normal as well. Lab Data 01/22/25 02:15 01/22/25 02:15 Radiology Impressions Chest X-Ray 01/22/25 02:30 IMPRESSION: 1. Essentially unremarkable single view chest. 2. Other details discussed above. Laboratory Results WBC 8.23 10^3/uL (3.29-11.43) 01/22/25 02:15 RBC 4.67 10^6/uL (3.85-5.65) 01/22/25 02:15 Hgb 14.20 g/dL (11.27-16.99) 01/22/25 02:15 Hct 43.0 % (36-47) 01/22/25 02:15 MCV 92.1 fl (85-98) 01/22/25 02:15 MCH 30.4 pg (27-33) 01/22/25 02:15 MCHC 33.0 g/dL (30-55) 01/22/25 02:15 RDW 13.9 % (12.1-15.1) 01/22/25 02:15 Plt Count 230 10^3/cmm (157-399) 01/22/25 02:15 MPV 11.6 fL (7.4-10.4) H 01/22/25 02:15 Neut % (Auto) 62.2 % 01/22/25 02:15 Lymph % (Auto) 22.6 % 01/22/25 02:15 [place] % (Auto) 10.6 % 01/22/25 02:15 Eos % (Auto) 3.5 % 01/22/25 02:15 Baso % (Auto) 0.9 % 01/22/25 02:15 Neut # (Auto) 5.12 10^3/uL (1.8-7.7) 01/22/25 02:15 Lymph # (Auto) 1.9 10^3/uL (0.8-4.8) 01/22/25 02:15 [place] # (Auto) 0.9 10^3/uL (0.2-0.9) 01/22/25 02:15 Eos # (Auto) 0.3 10^3/uL (0.0-0.8) 01/22/25 02:15 Baso # (Auto) 0.1 10^3/uL (0.0-0.1) 01/22/25 02:15 Nucleated RBC % (auto) 0 % 01/22/25 02:15 Nucleated RBCs # 0.0 /100WBC 01/22/25 02:15 PT 12.80 SECONDS (12.1-14.9) 01/22/25 02:15 INR 0.90 (0.8-1.2) 01/22/25 02:15 APTT 27.9 SECONDS (23.9-36.7) 01/22/25 02:15 Sodium 139 mmol/L (136-145) 01/22/25 02:15 Potassium 3.8 mmol/L (3.5-5.1) 01/22/25 02:15 Chloride 102 mmol/L (98-107) 01/22/25 02:15 Carbon Dioxide 23 mmol/L (22-29) 01/22/25 02:15 Anion Gap 17.8 (5-19) 01/22/25 02:15 BUN 7 mg/dL (6-20) 01/22/25 02:15 Creatinine 0.6 mg/dL (0.5-0.9) 01/22/25 02:15 GFR Calculation 112.5 mL/min (90-130) 01/22/25 02:15 Glucose 83 mg/dL (65-115) 01/22/25 02:15 Calculated Osmolality 285 mOsm/kg (285-295) 01/22/25 02:15 Calcium 9.2 mg/dL (8.5-10.5) 01/22/25 02:15 Total Bilirubin 0.5 mg/dL (0.15-1.2) 01/22/25 02:15 AST 20 U/L (0-32) 01/22/25 02:15 ALT 25 U/L (0-33) 01/22/25 02:15 Alkaline Phosphatase 59 U/L (35-105) 01/22/25 02:15 Creatine Kinase 86 U/L (26-192) 01/22/25 02:15 Troponin T Baseline < 6 ng/L (0-10) 01/22/25 02:15 Troponin T 120 Minute 6.00 ng/L (0-10) 01/22/25 04:08 Delta Troponin T 0.88900 ABS# (0-10) 01/22/25 04:08 NT-Pro-B Natriuret Pep < 36 pg/mL (0-125) 01/22/25 02:15 Total Protein 7.3 g/dL (6.6-8.7) 01/22/25 02:15 Albumin 4.9 g/dL (3.5-5.2) 01/22/25 02:15 Globulin 2.4 g/dL (1.3-4.6) 01/22/25 02:15 Lipase 52 U/L (13-60) 01/22/25 02:15 TSH 3.29 uIU/mL (0.27-4.20) 01/22/25 02:15 Free T4 1.04 ng/dL (0.82-1.77) 01/22/25 02:15 Ethyl Alcohol < 10 mg/dL (0-10) 01/22/25 02:15 All radiology interpretation(s) finalized by discharge Discharge Plan Discharge Patient Disposition: Home Clinical Impression: Chest pain Condition: Stable Prescriptions: No Action doxepin 25 mg capsule 25 mg PO TID Qty: 90 2RF metoprolol succinate 50 mg tablet extended release 24 hr 50 mg PO Q12H Qty: 60 5RF valsartan [Diovan] 80 mg tablet 80 mg PO DAILY Qty: 30 5RF Rx Instructions: dose increase stop 40mg Discharge Orders: Discharge ED (Routine); Ordered 01/22/25 Ordered By: William Newsome Referrals: Polo Nagy FNP-C [Primary Care Provider] - 1-3 days Patient Instructions: Chest Pain (ED), Opioid Safety, Pain Management Activity Restrictions/Additional Instructions: Keep your scheduled appointment with your funeral director. Return for any return of symptoms. You may try maneuvers such as vagal maneuvers, ice to your neck, etc. if you get symptoms again at home in the meantime. Otherwise, return to the ER for unresolved symptoms. Print Language: [place] Citizen Coding Level of Care Code ED Turntable Man for Franklin Sanchez
[2025-01-22 04:17] LABS: Free T4 Free Thyroxine 1.04 ng/dL (0.82-1.77); Thyroid Stimulating Hormone 3.29 uIU/mL (0.27-4.20)
[2025-01-22 04:30] LABS: Troponin 5 2HR Delta 0.00001 ABS# (0-10)
[2025-01-22 04:34] VITALS: BP 113/87; PULSE 86; O2SAT 97
== END 2025-01-22 04:25 | disposition home or self-care (01) ==
PROVIDERS: Emergency Provider Emergency Medicine; PCP Nurse Practitioner
DX: R07.9 Chest pain, unspecified (principal); I10 Essential (primary) hypertension
CPT/HCPCS: 71045; 80053; 80307; 82550; 83690; 83880; 84439; 84443; 84484; 85025; 85610; 85730; 93005; 99285